=== PATIENT | male | born 1955 | race Caucasian/White ===

== ENCOUNTER → 2018-02-06 13:08 | Outpatient (CLI) | payer OTHER, SELFPAY | PROVIDERS: Family Provider Internal Medicine; PCP Internal Medicine | DX: C25.9 Malignant neoplasm of pancreas, unspecified (principal); C78.7 Secondary malignant neoplasm of liver and intrahepatic bile duct | CPT/HCPCS: 96372; 96523; A4216; J2505 ==

== ENCOUNTER → 2018-02-20 11:56 | Outpatient (CLI) | payer OTHER, SELFPAY ==
[2018-02-20 12:11] VITALS: BP 134/73; PULSE 102; RESP 16; TEMP 36.4; O2SAT 98
[2018-02-20 12:20] VITALS: BP 134/73; PULSE 102; RESP 16; TEMP 36.4; O2SAT 98
== END ==
PROVIDERS: Family Provider Internal Medicine; PCP Internal Medicine
DX: C25.9 Malignant neoplasm of pancreas, unspecified (principal); C78.7 Secondary malignant neoplasm of liver and intrahepatic bile duct
CPT/HCPCS: 96372; 96523; A4216; J2505

== ENCOUNTER → 2018-03-06 11:49 | Outpatient (CLI) | payer OTHER, SELFPAY | PROVIDERS: Family Provider Internal Medicine; PCP Internal Medicine | DX: C25.9 Malignant neoplasm of pancreas, unspecified (principal); C78.7 Secondary malignant neoplasm of liver and intrahepatic bile duct | CPT/HCPCS: 96372; 96523; J2505 ==

== ENCOUNTER → 2018-03-20 12:41 | Outpatient (CLI) | payer OTHER, SELFPAY ==
[2018-03-20 13:18] VITALS: BMI 56.3
--- OUTSIDE RECORDS SUMMARY | 2018-05-15 16:04 | XMS RPT_ITS | Summary of Care ---
:1955 Author Organization [facility] Address [address] [place] [address] Phone Care Team Providers Name Role Phone Viet Zuleta MD Primary Care Provider Reason for Visit Reason Comments Referral Encounter Details Date Type Department Care Team Description 03/18/2018 Continuity of Care Pastoral Care Ambulatory Julien Bhardwaj [address] [place] [address] Allergies No Known Allergiesas of this encounter Medications Prescription Sig. Disp. Refills Start Date End Date Status metformin 1000 MG Tab Take 1,000 mg by Active tablet mouth 2 times daily with meals. buPROPion 300 MG Take 300 mg by Active tablet XL mouth daily every morning. lisinopril 20 MG Tab Take 20 mg by Active mouth daily. Lutein 20 MG Tab Take 20 mg by Active mouth daily. Coenzyme Q10 (COQ10) Take 100 mg by Active 100 MG Cap mouth. omega-3 acid ethyl Take 1 g by mouth Active esters 1 g Cap capsule daily. aspirin 81 MG Chew Tab Chew 81 mg daily. Active chewable tablet ALPRAZolam 0.25 MG Tab Take 0.25 mg by Active tablet mouth At bedtime as needed for Sleep. insulin glargine 100 Inject 50 Units Active UNIT/ML vial under the skin At bedtime. insulin lispro 100 Inject under the Active UNIT/ML Solution skin daily. Sliding scale esomeprazole 40 MG Cap Take 1 capsule by 30 capsule 0 07/06/[address] capsule mouth every morning before breakfast. ondansetron 8 MG Tab Take 1 tablet by 40 tablet 6 07/18/2017 Active tabletIndications: mouth every 8 Pancreatic cancer hours as needed metastasized to liver for Nausea. apixaban (ELIQUIS) 5 Take 1 tablet by 60 tablet 5 10/01/2017 Active MG Tab mouth 2 times tabletIndications: daily. DVT bilat Pancreatic cancer legs 08/31/17 metastasized to liver potassium chloride Use one pill 4 tablet 0 01/07/2018 Active (KLOR-CON M20) 20 MEQ every other day Tab CR with Lasix for 8 tabletIndications: days Pancreatic cancer metastasized to liver, Bilateral lower leg cellulitis, Bilateral leg edema furOSEmide 40 MG Tab Use one pill 4 tablet 0 01/07/2018 Active tabletIndications: every other day Pancreatic cancer for 8 days metastasized to liver, Bilateral lower leg cellulitis, Bilateral leg edema magnesium oxide 400 MG Take 250 mg by Active TabIndications: mouth daily. Pancreatic cancer metastasized to liver cyanocobalamin 500 MCG Take 1,000 mcg by Active TabIndications: mouth daily. Pancreatic cancer metastasized to liver prochlorperazine 10 MG Take 1 tablet by 50 tablet 8 02/04/2018 Active Tab tabletIndications: mouth every 6 Pancreatic cancer hours as needed metastasized to liver for Nausea / Vomiting. dexamethasone 4 MG Tab Take 8 mg orally 30 tablet 1 02/04/2018 Active tabletIndications: daily for 3 days, Pancreatic cancer Starting day 2 of metastasized to liver chemotherapy. Take with food. IRINOTECAN HCL IV by Intravenous Active route. OXALIPLATIN IV by Intravenous Active route. FLUOROURACIL IV by Intravenous Active route. DISABILITY Disability 1 Each 0 03/06/2018 Active PLACARDIndications: placard end date Pancreatic cancer 04/21/20. metastasized to liver as of this encounter Active Problems Problem Noted Date Bilateral lower leg cellulitis 01/07/2018 Bilateral leg edema 01/07/2018 Pancreatic cancer metastasized to liver 07/18/2017 Lesion of liver 07/10/2017 Obesity: body mass index of 50 or higher 07/05/2017 Pancreatic mass 07/05/2017 Social History Tobacco Use Types Packs/Day Years Used Date Former Smoker 2 20 Smokeless Tobacco: Never Used Alcohol Use Drinks/Week oz/Week Comments No Sex Assigned at Date Recorded Not on file as of this encounter Functional Status Functional Status Response Date of Assessment Are you deaf or do you have serious difficulty hearing? No 07/05/2017 Are you blind or do you have serious difficulty seeing, No 07/05/2017 even when wearing glasses? Do you have serious difficulty walking or climbing stairs No 07/05/2017 (5 years or older)? Do you have difficulty dressing or bathing (5 yrs or No 07/05/2017 older)? Because of a physical, mental, or emotional condition, do No 07/05/2017 you have difficulty doing errands alone such as visiting a doctor's office or shopping (5 yrs or older)? Cognitive Status Response Date of Assessment Because of a physical, mental, or emotional condition, do No 07/05/2017 you have serious difficulty concentrating, remembering, or making decisions (5 yrs or older)? as of this encounter Plan of Treatment Upcoming Encounters Date Type Specialty Care Team Description 04/01/2018 Office Visit Hematology Tracie Waller MD [address] [address] 04/01/2018 Infusion Visit Chemotherapy Tracie Waller MD [address] [address] Health Maintenance Due Date Last Done Comments HEPATITIS C VIRUS SCREENING 1955 HIV SCREENING DISCUSSION 1969 TETANUS 1974 TDAP (ADULT) 10/14/1975 LIPID SCREENING 1996 COLON CANCER SCREENING DISCUSSION 2006 PROSTATE CANCER SCREENING 2006 DISCUSSION INFLUENZA VACCINE (#1) 2017 POTASSIUM 03/04/2019 03/04/2018, 03/04/2018, 02/18/2018, Additional history exists as of this encounter Implants Implanted Type Area Bronze Plater Device Expiration Model / Identifier Date Serial / Lot Port Mri Dual Powerport - [id number] Port Right: BARD PERIPHERAL 01/19/2019 [id number] / Implanted: Qty: 1 on 07/22/2017 by Brenton Gonzalez MD Chest / Wall [id number] as of this encounter
--- OUTSIDE RECORDS SUMMARY | 2018-05-15 16:04 | XMS RPT_ITS | Summary of Care ---
:1955 Author Organization [facility] Address [address] [place] [address] Phone Care Team Providers Name Role Phone Viet Zuleta MD Primary Care Provider Encounter Details Date Type Department Care Team Description 03/18/2018 Outside Orders NOTES/RESULTS Other, Other Allergies No Known Allergiesas of this encounter [...] Office Visit Hematology Tracie Waller MD [address] [address] 04/01/2018 Infusion Visit Chemotherapy Tracie Waller MD [address] [address] Scheduled Tests Name Priority Associated Diagnoses Order Schedule ORDERS (SCANNED) Ordered: 03/18/2018 Health Maintenance Due Date Last Done Comments HEPATITIS C VIRUS SCREENING 1955 HIV SCREENING DISCUSSION 1969 TETANUS 1974 TDAP (ADULT) 10/14/1975 LIPID SCREENING 1996 COLON CANCER SCREENING DISCUSSION 2006 PROSTATE CANCER SCREENING 2006 DISCUSSION INFLUENZA VACCINE (#1) 2017 POTASSIUM 03/18/2019 03/18/2018, 03/04/2018, 03/04/2018, Additional history exists as of this encounter Implants Implanted Type 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
--- OUTSIDE RECORDS SUMMARY | 2018-05-15 16:04 | XMS RPT_ITS | Summary of Care ---
:1955 Author Organization [facility] Address [address] [place] [address] Phone Care Team Providers Name Role Phone Viet Zuleta MD Primary Care Provider Encounter Details Date Type Department Care Team Description 03/04/2018 Outside Orders NOTES/RESULTS Other, Other Allergies No [...] route. FLUOROURACIL IV by Intravenous Active route. as of this encounter Active Problems Problem [...] Encounters Date Type Specialty Care Team Description 03/18/2018 Infusion Visit Chemotherapy Tracie Waller MD [address] [phone] 04/01/2018 Office Visit Hematology Tracie Waller MD [address] [address] 04/01/2018 Infusion Visit Chemotherapy Tracie Waller MD [address] [address] Scheduled Tests Name Priority Associated Diagnoses Order Schedule ORDERS (SCANNED) Ordered: 03/04/2018 Health Maintenance Due Date Last Done Comments HEPATITIS C VIRUS SCREENING 1955 HIV SCREENING DISCUSSION 1969 TETANUS 1974 TDAP (ADULT) 10/14/1975 LIPID SCREENING 1996 COLON CANCER SCREENING DISCUSSION 2006 PROSTATE CANCER SCREENING 2006 DISCUSSION INFLUENZA VACCINE (#1) 2017 POTASSIUM 03/04/2019 03/04/2018, 03/04/2018, 02/18/2018, Additional history exists as of this encounter Implants Implanted Type Area Crew Clerk Device Expiration Model / Identifier Date Serial / Lot Port Mri Dual Powerport - [id number] Port Right: BARD PERIPHERAL 01/19/2019 [id number] / Implanted: Qty: 1 on 07/22/2017 by Brenton Gonzalez MD Chest / Wall [id number] as of this encounter
--- OUTSIDE RECORDS SUMMARY | 2018-05-15 16:05 | XMS RPT_ITS ---
:1955 Author Organization [place] Support Name Relationship Address Phone [employer] Unavailable [address] + [place] [address] PACO, SYLWIA Unavailable [address] + [place] [address] [employer] Unavailable [address] + [place] [address] PACO, SYLWIA Unavailable [address] + [place] [address] NOT GIVEN Unavailable Unavailable Unavailable NOT GIVEN Unavailable Unavailable Unavailable PACO, SYLWIA Unavailable [address] [place] [address] MARIE RANDALL Unavailable Unavailable + NOT GIVEN Unavailable Unavailable Unavailable PACO, SYLWIA Unavailable [address] + [place] [address] PACO MERLE Unavailable Unavailable + MARIE CASE Unavailable Unavailable + PACO, SYLWIA Unavailable [address] + [place] [address] PACO, MERLE Unavailable Unavailable + MARIE CASE Unavailable Unavailable + [employer] Unavailable [address] + [place] [address] PACO, SYLWIA Unavailable [address] + [place] [address] PACO, SYLWIA Unavailable [address] + [place] [address] PACO MERLE Unavailable Unavailable + MARIE CASE Unavailable Unavailable + [employer] Unavailable [address] + [place] [address] PACO, SYLWIA Unavailable [address] + [place] [address] PACO, SYLWIA Unavailable [address] + [place] [address] PACO, MERLE Unavailable Unavailable + MANPREET MARIE Unavailable Unavailable + PACO, SYLWIA Unavailable [address] + [place] [address] PACO, MERLE Unavailable Unavailable + MANPREET MARIE Unavailable Unavailable + [employer] Unavailable [address] + [place] [address] PACO, SYLWIA Unavailable [address] + [place] [address] PACO, SYLWIA Unavailable [address] + [place] [address] PACO, MERLE Unavailable Unavailable + MANPREET AMRIE Unavailable Unavailable + [employer] Unavailable [address] + [place] [address] PACO, SYLWIA Unavailable Unavailable + PACO, SYLWIA Unavailable [address] + [place] [address] PACO, MERLE Unavailable Unavailable + MANPREET MARIE Unavailable Unavailable + PACO, SYLWIA Unavailable [address] + [place] [address] PACO, MERLE Unavailable Unavailable + MANPREET MARIE Unavailable Unavailable + PACO, SYLWIA Unavailable [address] + [place] [address] PACO, MERLE Unavailable Unavailable + STANER MARIE Unavailable Unavailable + PACO, SYLWIA Unavailable [address] + [place] [address] PACO, MERLE Unavailable Unavailable + STANER MARIE Unavailable Unavailable + PACO, SYLWIA Unavailable [address] + [place] [address] PACO, MERLE Unavailable Unavailable + STANER MARIE Unavailable Unavailable + PACO, SYLWIA Unavailable [address] + [place] [address] PACO, MERLE Unavailable Unavailable + STANAUBRIE MARIE Unavailable Unavailable + PACO, SYLWIA Unavailable [address] + [place] [address] PACO, MERLE Unavailable Unavailable + STANER MARIE Unavailable Unavailable + PACO, SYLWIA Unavailable [address] + [place] [address] PACO, MERLE Unavailable Unavailable + STANER MARIE Unavailable Unavailable + PACO, SYLWIA Unavailable [address] + [place] [address] PACO, MERLE Unavailable Unavailable + STANER MARIE Unavailable Unavailable + PACO, SYLWIA Unavailable [address] + [place] [address] PACO, MERLE Unavailable Unavailable + STANER, MARIE Unavailable Unavailable + PACO, SYLWIA Unavailable [address] + [place] [address] PACO, MERLE Unavailable Unavailable + STANER, MARIE Unavailable Unavailable + PACO, SYLWIA Unavailable [address] + [place] [address] PACO, MERLE Unavailable Unavailable + STANAUBRIE MARIE Unavailable Unavailable + PACO, SYLWIA Unavailable [address] + [place] [address] PACO, MERLE Unavailable Unavailable + STANAUBRIE MARIE Unavailable Unavailable + PACO, SYLWIA Unavailable [address] + [place] [address] PACO, MERLE Unavailable Unavailable + STANAUBRIE MARIE Unavailable Unavailable + PACO, SYLWIA Unavailable [address] + [place] [address] PACO, MERLE Unavailable Unavailable + MANPREET MARIE Unavailable Unavailable + PACO, SYLWIA Unavailable [address] + [place] [address] PACO, MERLE Unavailable Unavailable + STANAUBRIE MARIE Unavailable Unavailable + PACO, SYLWIA Unavailable [address] + [place] [address] PACO, MERLE Unavailable Unavailable + STANAUBRIE MARIE Unavailable Unavailable + PACO, SYLWIA Unavailable [address] + [place] [address] PACO, MERLE Unavailable Unavailable + STANAUBRIE MARIE Unavailable Unavailable + PACO, SYLWIA Unavailable [address] + [place] [address] PACO, MERLE Unavailable Unavailable + STANER MARIE Unavailable Unavailable + PACO, SYLWIA Unavailable [address] + [place] [address] PACO, MERLE Unavailable Unavailable + JOHANA CASESH Unavailable Unavailable + PACO, SYLWIA Unavailable [address] + [place] [address] PACO, MERLE Unavailable Unavailable + MANPREET MARIE Unavailable Unavailable + PACO, SYLWIA Unavailable [address] + [place] [address] PACO, MERLE Unavailable Unavailable + MARIE CASE Unavailable Unavailable + NOT GIVEN Unavailable Unavailable Unavailable PACO, SYLWIA Unavailable [address] [place] [address] STARJOHANA GERBERSH Unavailable Unavailable + NOT GIVEN Unavailable Unavailable Unavailable PACO, SYLWIA Unavailable [address] [place] [address] STARZABRINA MARIE Unavailable Unavailable + PACO, SYLWIA Unavailable [address] + [place] [address] PACO, MERLE Unavailable Unavailable + JOHANA CASESH Unavailable Unavailable + PACO, SYLWIA Unavailable [address] + [place] [address] PACO, MERLE Unavailable Unavailable + MANPREET MARIE Unavailable Unavailable + PACO, SYLWIA Unavailable [address] + [place] [address] PACO, MERLE Unavailable Unavailable + MANPREET MARIE Unavailable Unavailable + PACO, SYLWIA Unavailable [address] + [place] [address] PACO, MERLE Unavailable Unavailable + MARIE CASE Unavailable Unavailable + PACO, SYLWIA Unavailable [address] + [place] [address] PACO, MERLE Unavailable Unavailable + MARIE CASE Unavailable Unavailable + PACO, SYLWIA Unavailable [address] + [place] [address] PACO, MERLE Unavailable Unavailable + MARIE CASE Unavailable Unavailable + PACO, SYLWIA Unavailable [address] + [place] [address] PACO, MERLE Unavailable Unavailable + MARIE CASE Unavailable Unavailable + PACO, SYLWIA Unavailable [address] + [place] [address] PACO, MERLE Unavailable Unavailable + MARIE CASE Unavailable Unavailable + PACO, SYLWIA Unavailable [address] + [place] [address] PACO, MERLE Unavailable Unavailable + MARIE CASE Unavailable Unavailable + NOT GIVEN Unavailable Unavailable Unavailable PACO, SYLWIA Unavailable [address] [place] [address] TONIAJOHANASH Unavailable Unavailable + Care Team Providers Name Role Phone CHRISTIAN WALLER Attending Unavailable AL-CHRISTIAN LO Referring Unavailable LATOUF, BUTROS Primary Care Unavailable REZA-CHRISTIAN LO Attending Unavailable REZA-CHRISTIAN LO Referring Unavailable LATOUF, BUTROS Primary Care Unavailable REZA-CHRISTIAN LO Attending Unavailable ELVIRA PACHECO Referring Unavailable LATOUF, BUTROS Primary Care Unavailable REZA-CHRISTIAN LO Attending Unavailable REZA-CHRISTIAN LO Referring Unavailable LATOUF, BUTROS Primary Care Unavailable REZA-CHRISTIAN LO Attending Unavailable REZA-MARRAWI, MHD Referring Unavailable LATOUF, BUTROS Primary Care Unavailable OLD, EDNA O Attending Unavailable AL-MARRAWI, MHD Referring Unavailable LATOUF, BUTROS Primary Care Unavailable OLD, EDNA O Attending Unavailable OLD, EDNA O Referring Unavailable LATOUF, BUTROS Primary Care Unavailable AL-MARRAWI, MHD Attending Unavailable AL-MARRAWI, MHD Referring Unavailable LATOUF, BUTROS Primary Care Unavailable AL-MARRAWI, MHD Attending Unavailable AL-MARRAWI, MHD Referring Unavailable LATOUF, BUTROS Primary Care Unavailable AL-MARRAWI, MHD Attending Unavailable AL-MARRAWI, MHD Referring Unavailable LATOUF, BUTROS Primary Care Unavailable AL-MARRAWI, MHD Attending Unavailable LATOUF, BUTROS Referring Unavailable LATOUF, BUTROS Primary Care Unavailable AL-MARRAWI, MHD Attending Unavailable AL-MARRAWI, MHD Referring Unavailable LATOUF, BUTROS Primary Care Unavailable AL-MARRAWI, MHD Attending Unavailable AL-MARRAWI, MHD Referring Unavailable LATOUF, BUTROS Primary Care Unavailable AL-MARRAWI, MHD Attending Unavailable AL-MARRAWI, MHD Referring Unavailable LATOUF, BUTROS Primary Care Unavailable AL-MARRAWI, MHD Attending Unavailable LATOUF, BUTROS Referring Unavailable LATOUF, BUTROS Primary Care Unavailable AL-MARRAWI, MHD Attending Unavailable AL-MARRAWI, MHD Referring Unavailable LATOUF, BUTROS Primary Care Unavailable AL-MARRAWI, MHD Attending Unavailable AL-MARRAWI, MHD Referring Unavailable LATOUF, BUTROS Primary Care Unavailable AL-MARRAWI, MHD Attending Unavailable AL-MARRAWI, MHD Referring Unavailable LATOUF, BUTROS Primary Care Unavailable AL-MARRAWI, MHD Attending Unavailable AL-MARRAWI, MHD Referring Unavailable LATOUF, BUTROS Primary Care Unavailable AL-MARRAWI, MHD Attending Unavailable LATOUF, BUTROS Referring Unavailable LATOUF, BUTROS Primary Care Unavailable AL-MARRAWI, MHD Attending Unavailable AL-MARRAWI, MHD Referring Unavailable LATOUF, BUTROS Primary Care Unavailable AL-MARRAWI, MHD Attending Unavailable AL-MARRAWI, MHD Referring Unavailable LATOUF, BUTROS Primary Care Unavailable AL-MARRAWI, MHD Attending Unavailable LATOUF, BUTROS Referring Unavailable LATOUF, BUTROS Primary Care Unavailable AL-MARRAWI, MHD Attending Unavailable AL-MARRAWI, MHD Referring Unavailable LATOUF, BUTROS Primary Care Unavailable AL-MARRAWI, MHD Attending Unavailable LATOUF, BUTROS Referring Unavailable LATOUF, BUTROS Primary Care Unavailable AL-MARRAWI, MHD Attending Unavailable AL-MARRAWI, MHD Referring Unavailable LATOUF, BUTROS Primary Care Unavailable AL-MARRAWI, MHD Attending Unavailable AL-MARRAWI, MHD Referring Unavailable LATOUF, BUTROS Primary Care Unavailable AL-MARRAWI, MHD Attending Unavailable AL-MARRAWI, MHD Referring Unavailable LATOUF, BUTROS Primary Care Unavailable AL-MARRAWI, MHD Attending Unavailable SELF, SELF Referring Unavailable LATOUF, BUTROS Primary Care Unavailable AL-MARRAWI, MHD Attending Unavailable SELF, SELF Referring Unavailable LATOUF, BUTROS Primary Care Unavailable AL-MARRAWI, MHD Attending Unavailable AL-MARRAWI, MHD Referring Unavailable LATOUF, BUTROS Primary Care Unavailable AL-MARRAWI, MHD Attending Unavailable AL-MARRAWI, MHD Referring Unavailable LATOUF, BUTROS Primary Care Unavailable AL-MARRAWI, MHD Attending Unavailable SELF, SELF Referring Unavailable LATOUF, BUTROS Primary Care Unavailable AL-MARRAWI, MHD Attending Unavailable AL-MARRAWI, MHD Referring Unavailable LATOUF, BUTROS Primary Care Unavailable AL TAANI, BRENTON Admitting Unavailable AL TAANI, BRENTON Attending Unavailable LATOUF, BUTROS Primary Care Unavailable CODI JUAREZ Attending Unavailable AL-MARRAWI, MHD Referring Unavailable LATOUF, BUTROS Primary Care Unavailable ELVIRA PACHECO Admitting Unavailable ELVIRA PACHECO Attending Unavailable LATOUF, BUTROS Referring Unavailable MARIANA GERMAIN PA-C Admitting Unavailable MARIANA GERMAIN PA-C Attending Unavailable MARIANA GERMAIN PA-C Primary Care Unavailable EDILMA WASHINGTON MD Admitting Unavailable EDILMA WASHINGTON MD Attending Unavailable SHELTON, DAHLIA TRIMBLE Referring Unavailable EDILMA WASHINGTON MD Primary Care Unavailable DAHLIA ZULETA MD Consulting Unavailable PROVIDER, UNKNOWN Consulting Unavailable PROVIDER, UNKNOWN Consulting Unavailable PROVIDER, UNKNOWN Consulting Unavailable MARIANA GERMAIN PA-C Admitting Unavailable MARIANA GERMAIN PA-C Attending Unavailable MARIANA GERMAIN PA-C Primary Care Unavailable SHELTON, DAHLIA TRIMBLE Consulting Unavailable PROVIDER, UNKNOWN Consulting Unavailable PROVIDER, UNKNOWN Consulting Unavailable PROVIDER, UNKNOWN Consulting Unavailable ANN MARIE, DR DEEDEE Ibarra Admitting Unavailable ANN MARIE, DR DEEDEE Ibarra Attending Unavailable ANN MARIE, DR DEEDEE Ibarra Primary Care Unavailable DAHLIA ZULETA MD Consulting Unavailable LATNANCY, DAHLIA TRIMBLE Referring Unavailable PROVIDER, UNKNOWN Consulting Unavailable PROVIDER, UNKNOWN Consulting Unavailable PROVIDER, UNKNOWN Consulting Unavailable LATOUJasmyn, DAHLIA TRIMBLE Admitting Unavailable LATOUF, DAHLIA TRIMBLE Attending Unavailable LATOUF, BUTJANUSZ TRIMBLE Primary Care Unavailable LATOUF, DAHLIA TRIMBLE Consulting Unavailable PROVIDER, UNKNOWN Consulting Unavailable PROVIDER, UNKNOWN Consulting Unavailable PROVIDER, UNKNOWN Consulting Unavailable LATOUF, DAHLIA TRIMBLE Admitting Unavailable LATOUF, DAHLIA TRIMBLE Attending Unavailable LATOUF, BUTJANUSZ TRIMBLE Primary Care Unavailable LATOUF, DAHLIA TRIMBLE Consulting Unavailable PROVIDER, UNKNOWN Consulting Unavailable PROVIDER, UNKNOWN Consulting Unavailable PROVIDER, UNKNOWN Consulting Unavailable LATOUF, BUTROS Primary Care Unavailable Al-Chu, DIDIERD Karen Attending Unavailable Al-Chu, MHD Yaser Referring Unavailable Merritt Da Silva Attending Unavailable LATOUF, BUTROS Primary Care Unavailable LATOUF, BUTROS Primary Care Unavailable AURORA RIGGS Attending Unavailable AURORA RIGGS Referring Unavailable LATOUF, BUTROS Primary Care Unavailable AURORA RIGGS Attending Unavailable AURORA RIGGS Referring Unavailable LATOUF, BUTROS Primary Care Unavailable Al-Chu, DIDIERD Yagarcia Attending Unavailable Al-Margiuseppe, MHD Yaser Referring Unavailable LATOUF, BUTROS Primary Care Unavailable AURORA RIGGS Attending Unavailable AURORA RIGGS Referring Unavailable PROBLEMS PROBLEMS DATE TYPE CONDITION / CODE ATTENDING STATUS SOURCE 04/02/2018 Principle Type 2 diabetes LATOUF, BUTROS Active [facility] Diagnosis mellitus without [facility] complications / Hospital E119(ICD-10) Repository 04/02/2018 Secondary Essential (primary) LATOUF, BUTROS Active [facility] hypertension / [facility] I10(ICD-10) Hospital Repository 04/02/2018 Secondary Lipoprotein LATOUF, 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 / [facility] E786(ICD-10) Hospital Repository 04/01/2018 Admitting 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, University unspecified / [facility] C25.9(ICD-10) Center Repository 04/01/2018 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 / Center C78.7(ICD-10) Repository 04/02/2018 Unknown 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 / Repository C25.9(ICD-10) 01/07/2018 Admitting Localized edema / OLD, EDNA Osborn Active [facility] diagnosis R60.0(ICD-10) [facility] Repository 01/07/2018 Admitting Cellulitis of left OLD, EDNA Osborn Active [facility] diagnosis lower limb / University L03.116(ICD-10) [facility] Repository 01/07/2018 Admitting Cellulitis of right OLD, EDNA Osborn Active [facility] diagnosis lower limb / University L03.115(ICD-10) [facility] Repository 12/10/2017 Admitting Follow-up / 145() REZACLEMENTEDIDIER AMAYAJosé Miguel Active [facility] diagnosis [facility] Repository 07/04/2017 Admitting Disease of ELVIRA PACHECO Active [facility] diagnosis pancreas, M University unspecified / [facility] K86.9(ICD-10) Center Repository PROCEDURES PROCEDURES No Procedure Records FoundRESULTS RESULTS CBC WITH DIFF EAST Collected: 04/01/2018 Status: F Source: [facility] 8:28 AM [facility] REPOSITORY TYPE CODE TESTS RESULT OUT OF REFERENCE UNITS RANGE LAB WBC 3.73-10.10 K/uL WBC Count 8.90 LAB RBC 4.38-5.83 M/uL RBC Count 3.35 Low LAB HGB 13.4-16.8 g/dL Hemoglobin 9.8 Low LAB HCT 39.6-48.8 % Hematocrit 32.0 Low LAB MCV 79.0-94.5 fL Mean Cell 95.5 High Volume LAB MCH 26.1-33.3 pg Mean Cell 29.3 Hgb LAB MCHC 31.9-36.5 g/dL Mean Cell 30.6 Low alert Hgb Conc LAB RDW 10.9-14.3 % RBC 18.8 High Distribution LAB PLT 146-337 K/uL Platelet 142 Low Count LAB MPV 8.7-12.3 fL Mean 11.3 Platelet Volume LAB NRBC 0.0-0.2 /100 WBC NUCLEATED 0.2 RBC LAB DTYPE Electronic DIFFERENTIAL TYPE Differential LAB IGRE % IMMATURE 0.6 GRANS % LAB SEGS % NEUTROPHIL 77.8 SEGMENTED LAB LYM % LYMPHOCYTE 12.2 % LAB MON % MONOCYTE % 7.6 LAB EOS % *EOSINOPHIL 1.0 % LAB BASO % BASOPHIL % 0.8 LAB IGABS 0.00-0.07 K/uL IMMATURE 0.05 GRANS ABSOLUTE LAB SBANS 1.57-6.19 K/uL SEGS + 6.92 High Bands,Absolute LAB ALYM 0.83-3.57 K/uL Abs Lymph 1.09 LAB AMONO 0.24-0.93 K/uL Abs Christian 0.68 LAB AEOS 0.00-0.48 K/uL Abs Eos 0.09 LAB ABASO 0.00-0.09 K/uL Abs Baso 0.07 Performed By: #### CBCDFStacey, CHM6E, GLUE, LIVPE #### [place] [address] #### CEA, CA199 #### [facility] [address] [place] [address] [place] [address] CHEM 6 - UHE Collected: 04/01/2018 Status: F Source: [facility] 8:28 AM [facility] REPOSITORY TYPE CODE TESTS RESULT OUT OF REFERENCE UNITS RANGE LAB BUN 7-22 mg/dL BUN 16 LAB NA 133-143 mmol/L Low Sodium 132 LAB K 3.5-5.0 mmol/L Potassium 4.6 LAB CL 98-108 mmol/L Chloride 98 LAB CO2 22-30 mmol/L Carbon Dioxide 29 LAB CREA 0.70-1.30 mg/dL Creatinine 0.93 LAB GAP 7-17 mmol/L Anion Gap 10 LAB BC BUN/CREA Ratio 17 LAB GFR >60 mL/min/1.73 sqM Est GFR,non >60 [place] LAB GFRA >60 mL/min/1.73 sqM Est GFR, >60 Performed By: #### CBCDFE, CHM6E, GLUE, LIVPE #### [place] [address] #### CEA, CA199 #### [facility] [id number] [place] [address] [place] [address] GLUCOSE - UHE Collected: 04/01/2018 Status: F Source: [facility] 8:28 AM [facility] REPOSITORY TYPE CODE TESTS RESULT OUT OF REFERENCE UNITS RANGE LAB GLUC 70-99 mg/dL High Glucose 306 Performed By: #### CBCDFE, CHM6E, GLUE, LIVPE #### [place] [address] #### CEA, CA199 #### [facility] [address] [place] [address] LIVER PROFILE - UHE Collected: 04/01/2018 Status: F Source: [facility] 8:28 AM [facility] REPOSITORY TYPE CODE TESTS RESULT OUT OF REFERENCE UNITS RANGE LAB ALT 10-52 U/L ALT 17 LAB AST 14-40 U/L AST 20 LAB ALB 3.5-5.0 g/dL Albumin 3.6 LAB ALP 32-126 U/L Alkaline Phosphatase 61 LAB BILD <0.3 mg/dL Bilirubin Direct 0.1 LAB BILT <1.5 mg/dL Bilirubin Total 0.4 LAB TP 6.4-8.3 g/dL Low Total Protein 6.3 Performed By: #### CBCDFE, CHM6E, GLUE, LIVPE #### [place] [address] #### CEA, CA199 #### [facility] [address] [address] CEA Collected: 04/01/2018 Status: F Source: [facility] 8:28 AM [facility] REPOSITORY TYPE CODE TESTS RESULT OUT OF RANGE REFERENCE UNITS LAB CEA 0-5.0 ng/mL High CEA 93.5 Performed By: #### CBCDFE, CHM6E, GLUE, LIVPE #### [address] [address] #### CEA, CA199 #### [facility] [address] [place] [address] [facility] [address] [place], [place] [address] CA 19-9 Collected: 04/01/2018 Status: F Source: [facility] 8:28 AM [facility] REPOSITORY TYPE CODE TESTS RESULT OUT OF RANGE REFERENCE UNITS LAB CA199 0-37.00 U/mL High CA 19-9 204.47 Performed By: #### CBCDFE, CHM6E, GLUE, LIVPE #### [facility] [address] [place], [place] [address] #### CEA, CA199 #### [facility] [address] [place] [address] [facility] [address] [place], [place] [address] CBC WITH DIFF EAST Collected: 03/18/2018 Status: F Source: [facility] 9:37 AM [facility] REPOSITORY TYPE CODE TESTS RESULT OUT OF REFERENCE UNITS RANGE LAB WBC 3.73-10.10 K/uL WBC Count 9.97 LAB RBC 4.38-5.83 M/uL RBC Count 3.35 Low LAB HGB 13.4-16.8 g/dL Hemoglobin 9.6 Low LAB HCT 39.6-48.8 % Hematocrit 31.0 Low LAB MCV 79.0-94.5 fL Mean Cell 92.5 Volume LAB MCH 26.1-33.3 pg Mean Cell 28.7 Hgb LAB MCHC 31.9-36.5 g/dL Mean Cell 31.0 Low Hgb Conc LAB RDW 10.9-14.3 % RBC 18.6 High Distribution LAB PLT 146-337 K/uL Platelet 139 Low Count LAB MPV 8.7-12.3 fL Mean 11.4 Platelet Volume LAB NRBC 0.0-0.2 /100 WBC NUCLEATED 0.0 RBC LAB DTYPE Electronic DIFFERENTIAL TYPE Differential LAB IGRE % IMMATURE 0.8 GRANS % LAB SEGS % NEUTROPHIL 78.8 SEGMENTED LAB LYM % LYMPHOCYTE 12.7 % LAB MON % MONOCYTE % 5.7 LAB EOS % *EOSINOPHIL 1.4 % LAB BASO % BASOPHIL % 0.6 LAB IGABS 0.00-0.07 K/uL IMMATURE 0.08 High GRANS ABSOLUTE LAB SBANS 1.57-6.19 K/uL SEGS + 7.85 High Bands,Absolute LAB ALYM 0.83-3.57 K/uL Abs Lymph 1.27 LAB AMONO 0.24-0.93 K/uL Abs Christian 0.57 LAB AEOS 0.00-0.48 K/uL Abs Eos 0.14 LAB ABASO 0.00-0.09 K/uL Abs Baso 0.06 Performed By: #### CBCDFE #### [place] [address] CBC WITH DIFF EAST Collected: 03/04/2018 Status: F Source: [facility] 8:30 AM [facility] REPOSITORY TYPE CODE TESTS RESULT OUT OF REFERENCE UNITS RANGE LAB WBC 3.73-10.10 K/uL WBC Count 11.29 High LAB RBC 4.38-5.83 M/uL RBC Count 3.37 Low LAB HGB 13.4-16.8 g/dL Hemoglobin 9.6 Low LAB HCT 39.6-48.8 % Hematocrit 31.1 Low LAB MCV 79.0-94.5 fL Mean Cell 92.3 Volume LAB MCH 26.1-33.3 pg Mean Cell 28.5 Hgb LAB MCHC 31.9-36.5 g/dL Mean Cell 30.9 Low alert Hgb Conc LAB RDW 10.9-14.3 % RBC 19.2 High Distribution LAB PLT 146-337 K/uL Platelet 142 Low Count LAB MPV 8.7-12.3 fL Mean NOT Platelet Volume MEASURED LAB NRBC 0.0-0.2 /100 WBC NUCLEATED 0.2 RBC LAB DTYPE Electronic DIFFERENTIAL TYPE Differential LAB IGRE % IMMATURE 0.8 GRANS % LAB SEGS % NEUTROPHIL 79.7 SEGMENTED LAB LYM % LYMPHOCYTE 11.9 % LAB MON % MONOCYTE % 6.5 LAB EOS % EOSINOPHIL 0.5 % LAB BASO % BASOPHIL % 0.6 LAB IGABS 0.00-0.07 K/uL IMMATURE 0.09 High GRANS ABSOLUTE LAB SBANS 1.57-6.19 K/uL SEGS + 9.00 High Bands,Absolute LAB ALYM 0.83-3.57 K/uL Abs Lymph 1.34 LAB AMONO 0.24-0.93 K/uL Abs Christian 0.73 LAB AEOS 0.00-0.48 K/uL Abs Eos 0.06 LAB ABASO 0.00-0.09 K/uL Abs Baso 0.07 Performed By: #### CBCDFE, CHM6E, GLUE, LIVPE #### [address] [address] #### CA199, CEA #### [facility] [address] [address] [facility] [address] [place] [address] CHEM 6 - UHE Collected: 03/04/2018 Status: F Source: [facility] 8:30 AM [facility] REPOSITORY TYPE CODE TESTS RESULT OUT OF REFERENCE UNITS RANGE LAB BUN 7-22 mg/dL BUN 16 LAB NA 133-143 mmol/L Sodium 135 LAB K 3.5-5.0 mmol/L Potassium 4.7 LAB CL 98-108 mmol/L Chloride 99 LAB CO2 22-30 mmol/L Carbon Dioxide 30 LAB CREA 0.70-1.30 mg/dL Creatinine 1.05 LAB GAP 7-17 mmol/L Anion Gap 11 LAB BC BUN/CREA Ratio 15 LAB GFR >60 mL/min/1.73 sqM Est GFR,non >60 [place] LAB GFRA >60 mL/min/1.73 sqM Est GFR, >60 Performed By: #### CBCDFE, CHM6E, GLUE, LIVPE #### [address] [address] #### CA199, CEA #### [facility] [id number] [place] [address] [address] GLUCOSE - UHE Collected: 03/04/2018 Status: F Source: [facility] 8:30 AM [facility] REPOSITORY TYPE CODE TESTS RESULT OUT OF REFERENCE UNITS RANGE LAB GLUC 70-99 mg/dL High Glucose 249 Performed By: #### CBCDFE, CHM6E, GLUE, LIVPE #### [address] [address] #### CA199, CEA #### [facility] [address] [address] [facility] [address] [place] [address] LIVER PROFILE - UHE Collected: 03/04/2018 Status: F Source: [facility] 8:30 AM [facility] REPOSITORY TYPE CODE TESTS RESULT OUT OF REFERENCE UNITS RANGE LAB ALT 10-52 U/L ALT 16 LAB AST 14-40 U/L AST 17 LAB ALB 3.5-5.0 g/dL Albumin 3.5 LAB ALP 32-126 U/L Alkaline Phosphatase 59 LAB BILD <0.3 mg/dL Bilirubin Direct 0.1 LAB BILT <1.5 mg/dL Bilirubin Total 0.3 LAB TP 6.4-8.3 g/dL Low Total Protein 6.2 Performed By: #### CBCDFE, CHM6E, GLUE, LIVPE #### [address] [address] #### CA199, CEA #### [place] [address] CA 19-9 Collected: 03/04/2018 Status: F Source: [facility] 8:30 AM [facility] REPOSITORY TYPE CODE TESTS RESULT OUT OF RANGE REFERENCE UNITS LAB CA199 0-37.00 U/mL High CA 19-9 188.32 Performed By: #### CBCDFE, CHM6E, GLUE, LIVPE #### [address] [address] #### CA199, CEA #### [address] [address] CEA Collected: 03/04/2018 Status: F Source: [facility] 8:30 AM [facility] REPOSITORY TYPE CODE TESTS RESULT OUT OF RANGE REFERENCE UNITS LAB CEA 0-5.0 ng/mL High CEA 129.4 Performed By: #### CBCDFE, CHM6E, GLUE, LIVPE #### [address] [address] #### CA199, CEA #### [id number] [place] [address] CBC WITH DIFF EAST Collected: 02/18/2018 Status: F Source: [facility] 8:40 AM [facility] REPOSITORY TYPE CODE TESTS RESULT OUT OF REFERENCE UNITS RANGE LAB WBC 4.23-9.07 K/uL WBC Count 10.68 High LAB RBC 4.63-6.08 M/uL RBC Count 3.63 Low LAB HGB 13.7-17.5 g/dL Hemoglobin 10.3 Low LAB HCT 40.1-51.0 % Hematocrit 33.2 Low LAB MCV 79.0-92.2 fL Mean Cell 91.5 Volume LAB MCH 25.7-32.2 pg Mean Cell 28.4 Hgb LAB MCHC 32.3-36.5 g/dL Mean Cell 31.0 Low Hgb Conc LAB RDW 11.6-14.4 % RBC 18.4 High Distribution LAB PLT 163-337 K/uL Platelet 100 Low Count LAB MPV 9.4-12.4 fL Mean NOT Platelet Volume MEASURED LAB NRBC 0.0-0.2 /100 WBC NUCLEATED 0.4 High RBC LAB DTYPE Electronic DIFFERENTIAL TYPE Differential LAB IGRE % IMMATURE 0.7 GRANS % LAB SEGS % NEUTROPHIL 77.9 SEGMENTED LAB LYM % LYMPHOCYTE 12.8 % LAB MON % MONOCYTE % 5.7 LAB EOS % EOSINOPHIL 2.1 % LAB BASO % BASOPHIL % 0.8 LAB IGABS <0.04 K/uL IMMATURE 0.08 High GRANS ABSOLUTE LAB SBANS 1.78-5.38 K/uL SEGS + 8.31 High Bands,Absolute LAB ALYM 1.32-3.57 K/uL Abs Lymph 1.37 LAB AMONO 0.30-0.82 K/uL Abs Christian 0.61 LAB AEOS <0.55 K/uL Abs Eos 0.22 LAB ABASO <0.09 K/uL Abs Baso 0.09 High Performed By: #### CBCDFE #### [address] [address] CHEM 6 - E Collected: 02/04/2018 Status: F Source: [facility] 8:30 AM [facility] REPOSITORY TYPE CODE TESTS RESULT OUT OF REFERENCE UNITS RANGE LAB BUN 7-22 mg/dL BUN 18 LAB NA 133-143 mmol/L Sodium 137 LAB K 3.5-5.0 mmol/L Potassium 4.8 LAB CL 98-108 mmol/L Chloride 100 LAB CO2 22-30 mmol/L Carbon High Dioxide 32 LAB CREA 0.70-1.30 mg/dL Creatinine 1.01 LAB GAP 7-17 mmol/L Anion Gap 10 LAB BC BUN/CREA Ratio 18 LAB GFR >60 mL/min/1.73 sqM Est GFR,non >60 [place] LAB GFRA >60 mL/min/1.73 sqM Est GFR, >60 Performed By: #### JESUSM6Stacey, SHAWNA, CBCDFE #### [address] [address] #### CEA, CA199 #### [facility] [address] [place] [address] LIVER PROFILE - [facility] Collected: 02/04/2018 Status: F Source: [facility] 8:30 AM [facility] REPOSITORY TYPE CODE TESTS RESULT OUT OF REFERENCE UNITS RANGE LAB ALT 10-52 U/L ALT 14 LAB AST 14-40 U/L AST 20 LAB ALB 3.5-5.0 g/dL Albumin 3.6 LAB ALP 32-126 U/L Low Alkaline Phosphatase 31 LAB BILD <0.3 mg/dL Bilirubin Direct 0.1 LAB BILT <1.5 mg/dL Bilirubin Total 0.4 LAB TP 6.4-8.3 g/dL Total Protein 6.6 Performed By: #### JESUSM6Stacey, SHAWNA, CBCDFE #### [address] [address] #### CEA, CA199 #### [facility] [address] [place] [address] CBC WITH DIFF EAST Collected: 02/04/2018 Status: F Source: [facility] 8:30 AM [facility] REPOSITORY TYPE CODE TESTS RESULT OUT OF REFERENCE UNITS RANGE LAB WBC 4.23-9.07 K/uL WBC Count 4.75 LAB RBC 4.63-6.08 M/uL RBC Count 3.52 Low LAB HGB 13.7-17.5 g/dL Hemoglobin 9.9 Low LAB HCT 40.1-51.0 % Hematocrit 32.4 Low LAB MCV 79.0-92.2 fL Mean Cell 92.0 Volume LAB MCH 25.7-32.2 pg Mean Cell Hgb 28.1 LAB MCHC 32.3-36.5 g/dL Mean Cell Hgb 30.6 Low alert Conc LAB RDW 11.6-14.4 % RBC 17.9 High Distribution LAB PLT 163-337 K/uL Platelet Count 158 Low LAB MPV 9.4-12.4 fL Mean Platelet 11.1 Volume LAB NRBC 0.0-0.2 /100 WBC NUCLEATED RBC 0.0 LAB DTYPE DIFFERENTIAL Manual TYPE Differential LAB SEGS % NEUTROPHIL 56.0 SEGMENTED LAB LYM % LYMPHOCYTE % 24.0 LAB MON % MONOCYTE % 14.0 LAB EOS % EOSINOPHIL % 6.0 LAB BASO % BASOPHIL % 0.0 LAB BAND % BAND 0.0 NEUTROPHIL % LAB SBANS 1.78-5.38 K/uL SEGS + 2.66 Bands,Absolute LAB ALYM 1.32-3.57 K/uL Abs Lymph 1.14 Low LAB AMONO 0.30-0.82 K/uL Abs Christian 0.67 LAB AEOS <0.55 K/uL Abs Eos 0.29 LAB ABASO <0.09 K/uL Abs Baso 0.00 LAB POLYCH POLYCHROMASIA 1+ LAB PLTEST PLATELET ESTIMATE Automated platelet count confirmed by manual slide review. LAB RMORPH Red Cell RBC Morphology indices confirmed by manual smear review. Performed By: #### CHM6E, LIVPE, CBCDFE #### [place] [address] #### CEA, CA199 #### [place] [address] CEA Collected: 02/04/2018 Status: F Source: [facility] 8:30 AM [facility] REPOSITORY TYPE CODE TESTS RESULT OUT OF RANGE REFERENCE UNITS LAB CEA 0-5.0 ng/mL High CEA 74.0 Performed By: #### CHM6E, LIVPE, CBCDFE #### [place] [address] #### CEA, CA199 #### [place] [address] CA 19-9 Collected: 02/04/2018 Status: F Source: [facility] 8:30 AM [facility] REPOSITORY TYPE CODE TESTS RESULT OUT OF RANGE REFERENCE UNITS LAB CA199 0-37.00 U/mL High CA 19-9 87.81 Performed By: #### CHM6E, LIVPE, CBCDFE #### [address] [address] #### CEA, CA199 #### [facility] [address] [place] [address] [facility] [address] [place] [address] [place] CHEST WITH Observed: 01/27/2018 Status: F Source: [facility] 3:40 PM [facility] REPOSITORY EXAM: CT CHEST WITH CONTRAST, 01/27/2018 11:46 AM COMPARISON: October 21, 2017 CLINICAL INDICATIONS: Metastatic pancreatic cancer to liver, lungs and lower mediastinal and upper abdominal lymph nodes; RELEVANT CLINICAL HISTORY: C25.9:Pancreatic cancer metastasized to liver C78.7:Pancreatic cancer metastasized to liver L03.116:Bilateral lower leg cellulitis L03.115:Bilateral lower leg cellulitis R60.0:Bilateral leg edema TECHNIQUE: Following the administration of intravenous contrast, axial CT images were reconstructed from the volumetric data set, from the thoracic inlet through the adrenal glands. Coronal MIP images were also reconstructed. CONTRAST: iohexol (OMNIPAQUE) 300 MG/ML vial 50 mL; Route of Administration: Oral; Dose: 50 mL. iohexol (OMNIPAQUE) 350 MG/ML injection 1-171 mL; Route of Administration: Intravenous; Dose: 140 mL. FINDINGS: Lungs and Pleura: Stable faint groundglass subpleural nodule in the right lower lobe at the site of a 0.9 cm subpleural nodule noted on the CT from June 2017. Stable punctate nodule in the left lower lobe at the site of a previously noted 0.5 cm nodule in June 2017, image 77. No new or enlarging pulmonary nodule. Mild dependent atelectasis. No pleural fluid. Tracheobronchial tree: No abnormality. Mediastinum/Celia: Mediastinal and hilar lymph nodes as detailed below: Paraesophageal, 0.8 x 1.4 cm, unchanged, image 78 Right juxtacardiac, 0.8 x 1.3 cm, previously 0.8 x 1.2 cm, image 71 Paraesophageal, 0.6 x 0.6 cm, previously 0.6 x 0.7 cm, image 55. Axilla and Supraclavicular Region: No axillary or supraclavicular adenopathy. Cardiovascular: Heart is normal in size. No pericardial effusion. Mild aortic valve leaflet calcifications. Few scattered atherosclerotic calcifications in the coronary arteries, the aorta and branch vessels. Normal pulmonary arteries. Stable right port. Upper Abdomen: A CT Abdomen and Pelvis was concurrently performed and separately dictated. Bones and Soft Tissue: No suspicious osseous lesion. IMPRESSION: 1. No significant change in size of a few faint and punctate pulmonary nodules which are in regions of known metastasis identified on the CT from June 2017. No new or enlarging nodule. 2. No significant change in size of previously measured mediastinal lymph nodes. ABDOMEN/PELVIS WITH Observed: 01/27/2018 Status: F Source: [facility] 2:31 PM [facility] REPOSITORY EXAM: CT ABDOMEN/PELVIS WITH CONTRAST, 01/27/2018 11:46 AM COMPARISON: Multiple prior exams including the most recent CT abdomen pelvis 10/21/2017. CLINICAL INDICATIONS: Metastatic pancreatic cancer to liver, lungs and lower mediastinal and upper abdominal lymph nodes; C25.9:Pancreatic cancer metastasized to liver C78.7:Pancreatic cancer metastasized to liver L03.116:Bilateral lower leg cellulitis L03.115:Bilateral lower leg cellulitis R60.0:Bilateral leg edema TECHNIQUE: Helical axial images of the abdomen and pelvis were performed from the lung bases through the ischial tuberosities following the administration of oral and intravenous contrast. Coronal 2 mm reconstructions were also made. CONTRAST: iohexol (OMNIPAQUE) 300 MG/ML vial 50 mL; Route of Administration: Oral; Dose: 50 mL. iohexol (OMNIPAQUE) 350 MG/ML injection 1-171 mL; Route of Administration: Intravenous; Dose: 140 mL. This patient underwent a CT examination using radiation exposure as low as reasonably achievable. CTDIvol and DLP radiation exposure values for each series were: Exposure: 2; Series: 7; Anatomy: Chest/Abdomen/Pelvis; Phantom: 32 cm; CTDIvol: 25; DLP: 1300 Exposure: 1; Series: 2; Anatomy: Chest/Abdomen/Pelvis; Phantom: 32 cm; CTDIvol: 17; DLP: 580 The following accession numbers are related to this dose report {[id number]}: [id number] The dose indicators for CT are the volume Computed Tomography (CT) Dose Index (CTDIvol) and the Dose Length Product (DLP), and are measured in units of mGy and mGy-cm, respectively. These indicators are not patient dose, but values generated from the CT scanner acquisition factors and may substantially underestimate or overestimate the absorbed dose based on patient size and other factors. FINDINGS: Quantum mottle artifact limits the sensitivity of the exam. Lung bases: Please see dedicated chest CT scan of the same date for full description of the intra-thoracic contents. Liver: There are multiple poorly marginated heterogeneously hypoenhancing liver lesions, some of which have increased in size and some of which are new from 10/21/2017. Previously measured lesions are as follows: * Heterogeneously hypoenhancing left hepatic dome mass in segment 2 measures 4.9 x 4.6 cm (axial image 32), previously 4.8 x 4.5 cm. * Hypoenhancing right hepatic lobe mass in segment 7 measures 7.5 x 5.5 cm (series 7 image 44), previously 6.6 x 4.6 cm. * New hypoenhancing lesion in segment (series 7 image 60) measures 3.1 x 3.1 cm. There is narrowing of the main portal vein near the portia hepatis, similar in appearance to the prior exam. The intrahepatic right and left portal veins are patent. The portia splenic confluence is patent. Biliary/Gallbladder: The gallbladder is physiologically distended without evidence of stones. The biliary tree is nondilated. Spleen: There is a poorly marginated hypoenhancing lesion at the superior aspect of the spleen (series 7 image 23) measuring 3.4 x 2.2 cm, new in the interval. Invasive hypoenhancing lesion at the splenic hilum as described below. Pancreas: The pancreas is atrophic. No ductal dilatation. The ill-defined infiltrative heterogeneous soft tissue mass arising from the distal pancreatic tail measures 4.7 x 4.1 cm (series 7 image 49), previously 5.1 x 3.8 cm. Lesion is in close approximation to the left adrenal gland and appears to be invading the spleen at the splenic hilum as well as the anterior portion of the superior pole left kidney. Adrenals: The right adrenal gland is unremarkable. Probable invasion of the left adrenal gland from pancreatic tail mass as described above. Kidneys: The kidneys enhance symmetrically. Probable invasion of the superior pole left kidney as described above. No hydronephrosis. Gastrointestinal: Small hiatal hernia. The stomach is predominantly decompressed limiting its evaluation. Question mild thickening of the gastric antrum versus underdistention. Small bowel loops are nondistended. The appendix measures up to 6 mm in diameter (series 9 image 95), upper limits of normal. No significant periappendiceal fluid/stranding. Diverticulosis without evidence of diverticulitis. Lymph nodes: There are multiple enlarged retroperitoneal and pelvic sidewall lymph nodes with the previously indexed lesions as follows: -Enlarged portacaval lymph node measures 2.3 x 1.2 cm (series 7 image 53), previously 1.0 x 2.7 cm. -Enlarged right external iliac lymph node (series 7 image 134) measures 1.7 x 1.6 cm, previously 1.5 x 1.4 cm. -The left external iliac lymph node measures 2.2 x 1.2 cm (series 7 image 103), previously 2.0 x 1.2 cm. 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 The aorta is normal in course and caliber. Few scattered atherosclerotic calcifications throughout the aorta and its branches. Peritoneum/retroperitoneum: No free air or free fluid. Bladder: Unremarkable. Pelvic structures: Mildly enlarged prostate gland, similar to the prior exam. Body wall: Small fat containing umbilical hernia. Bony Structures: No destructive osseous lesion. Extensive multilevel degenerative change throughout the visualized spine. IMPRESSION: 1. Slight interval decrease in size of a pancreatic tail mass with probable invasion of the adjacent spleen, left kidney, and left adrenal gland. 2. Multiple ill-defined hypoenhancing lesions within the liver have increased in size and number from the prior exam suggestive of progression of disease. 3. New ill-defined hypoenhancing lesion in the superior aspect of the spleen worrisome for metastatic disease. 4. Abdominal pelvic lymphadenopathy, not significantly changed the prior exam. WITH DIFF EAST Collected: 01/21/2018 Status: F Source: [facility] 9:43 AM [facility] REPOSITORY TYPE CODE TESTS RESULT OUT OF REFERENCE UNITS RANGE LAB WBC 4.23-9.07 K/uL WBC Count 5.82 LAB RBC 4.63-6.08 M/uL RBC Count 3.57 Low LAB HGB 13.7-17.5 g/dL Hemoglobin 10.3 Low LAB HCT 40.1-51.0 % Hematocrit 32.6 Low LAB MCV 79.0-92.2 fL Mean Cell 91.3 Volume LAB MCH 25.7-32.2 pg Mean Cell 28.9 Hgb LAB MCHC 32.3-36.5 g/dL Mean Cell 31.6 Low Hgb Conc LAB RDW 11.6-14.4 % RBC 17.1 High Distribution LAB PLT 163-337 K/uL Platelet 142 Low Count LAB MPV 9.4-12.4 fL Mean 11.4 Platelet Volume LAB NRBC 0.0-0.2 /100 WBC NUCLEATED 0.0 RBC LAB DTYPE Electronic DIFFERENTIAL TYPE Differential LAB IGRE % IMMATURE 0.5 GRANS % LAB SEGS % NEUTROPHIL 57.4 SEGMENTED LAB LYM % LYMPHOCYTE 17.7 % LAB MON % MONOCYTE % 17.7 LAB EOS % EOSINOPHIL 5.7 % LAB BASO % BASOPHIL % 1.0 LAB IGABS <0.04 K/uL IMMATURE <0.04 GRANS ABSOLUTE LAB SBANS 1.78-5.38 K/uL SEGS + 3.34 Bands,Absolute LAB ALYM 1.32-3.57 K/uL Abs Lymph 1.03 Low LAB AMONO 0.30-0.82 K/uL Abs Christian 1.03 High LAB AEOS <0.55 K/uL Abs Eos 0.33 LAB ABASO <0.09 K/uL Abs Baso 0.06 Performed By: #### CBCDFE #### [place] [address] CBC WITH DIFF EAST Collected: 01/07/2018 Status: F Source: [facility] 8:31 AM [facility] REPOSITORY TYPE CODE TESTS RESULT OUT OF REFERENCE UNITS RANGE LAB WBC 4.23-9.07 K/uL WBC Count 5.42 LAB RBC 4.63-6.08 M/uL RBC Count 3.53 Low LAB HGB 13.7-17.5 g/dL Hemoglobin 10.2 Low LAB HCT 40.1-51.0 % Hematocrit 32.4 Low LAB MCV 79.0-92.2 fL Mean Cell 91.8 Volume LAB MCH 25.7-32.2 pg Mean Cell 28.9 Hgb LAB MCHC 32.3-36.5 g/dL Mean Cell 31.5 Low Hgb Conc LAB RDW 11.6-14.4 % RBC 16.8 High Distribution LAB PLT 163-337 K/uL Platelet 146 Low Count LAB MPV 9.4-12.4 fL Mean 11.0 Platelet Volume LAB NRBC 0.0-0.2 /100 WBC NUCLEATED 0.0 RBC LAB DTYPE Electronic DIFFERENTIAL TYPE Differential LAB IGRE % IMMATURE 0.6 GRANS % LAB SEGS % NEUTROPHIL 58.4 SEGMENTED LAB LYM % LYMPHOCYTE 18.8 % LAB MON % MONOCYTE % 16.1 LAB EOS % EOSINOPHIL 4.8 % LAB BASO % BASOPHIL % 1.3 LAB IGABS <0.04 K/uL IMMATURE <0.04 GRANS ABSOLUTE LAB SBANS 1.78-5.38 K/uL SEGS + 3.17 Bands,Absolute LAB ALYM 1.32-3.57 K/uL Abs Lymph 1.02 Low LAB AMONO 0.30-0.82 K/uL Abs Christian 0.87 High LAB AEOS <0.55 K/uL Abs Eos 0.26 LAB ABASO <0.09 K/uL Abs Baso 0.07 Performed By: #### CBCDFE, CHM6E, LIVPE #### [facility] [address] [place], [place] [address] #### CEA, CA199 #### [facility] [address] [id number] [place] [address] [place] [address] CHEM 6 - UHE Collected: 01/07/2018 Status: F Source: [facility] 8:31 AM [facility] REPOSITORY TYPE CODE TESTS RESULT OUT OF REFERENCE UNITS RANGE LAB BUN 7-22 mg/dL BUN 16 LAB NA 133-143 mmol/L Sodium 143 LAB K 3.5-5.0 mmol/L Potassium 4.6 LAB CL 98-108 mmol/L Chloride 103 LAB CO2 22-30 mmol/L Carbon Dioxide 30 LAB CREA 0.70-1.30 mg/dL Creatinine 1.04 LAB GAP 7-17 mmol/L Anion Gap 15 LAB BC BUN/CREA Ratio 15 LAB GFR >60 mL/min/1.73 sqM Est GFR,non >60 [place] LAB GFRA >60 mL/min/1.73 sqM Est GFR, >60 Performed By: #### CBCDFE, CHM6E, LIVPE #### [address] [address] #### CEA, CA199 #### [facility] [id number] [place] [address] [place] [address] LIVER PROFILE - [facility] Collected: 01/07/2018 Status: F Source: [facility] 8:31 AM [facility] REPOSITORY TYPE CODE TESTS RESULT OUT OF REFERENCE UNITS RANGE LAB ALT 10-52 U/L ALT 12 LAB AST 14-40 U/L AST 17 LAB ALB 3.5-5.0 g/dL Albumin 3.6 LAB ALP 32-126 U/L Low Alkaline Phosphatase 26 LAB BILD <0.3 mg/dL Bilirubin Direct 0.1 LAB BILT <1.5 mg/dL Bilirubin Total 0.4 LAB TP 6.4-8.3 g/dL Total Protein 6.4 Performed By: #### CBCDFE, CHM6E, LIVPE #### [address] [address] #### CEA, CA199 #### [facility] [address] [address] CEA Collected: 01/07/2018 Status: F Source: [facility] 8:31 AM [facility] REPOSITORY TYPE CODE TESTS RESULT OUT OF RANGE REFERENCE UNITS LAB CEA 0-5.0 ng/mL High CEA 44.2 Performed By: #### CBCDFE, CHM6E, LIVPE #### [address] [address] #### CEA, CA199 #### [facility] [address] [place] [address] CA 19-9 Collected: 01/07/2018 Status: F Source: [facility] 8:31 AM [facility] REPOSITORY TYPE CODE TESTS RESULT OUT OF RANGE REFERENCE UNITS LAB CA199 0-37.00 U/mL High CA 19-9 59.91 Performed By: #### CBCDFE, CHM6E, LIVPE #### [place] [address] #### CEA, CA199 #### [facility] [address] [place] [address] [facility] [address] [place], [place] [address] CBC WITH DIFF EAST Collected: 12/24/2017 Status: F Source: [facility] 9:49 AM [facility] REPOSITORY TYPE CODE TESTS RESULT OUT OF REFERENCE UNITS RANGE LAB WBC 4.23-9.07 K/uL WBC Count 4.89 LAB RBC 4.63-6.08 M/uL RBC Count 3.53 Low LAB HGB 13.7-17.5 g/dL Hemoglobin 10.1 Low LAB HCT 40.1-51.0 % Hematocrit 32.6 Low LAB MCV 79.0-92.2 fL Mean Cell 92.4 High Volume LAB MCH 25.7-32.2 pg Mean Cell 28.6 Hgb LAB MCHC 32.3-36.5 g/dL Mean Cell 31.0 Low Hgb Conc LAB RDW 11.6-14.4 % RBC 16.4 High Distribution LAB PLT 163-337 K/uL Platelet 143 Low Count LAB MPV 9.4-12.4 fL Mean 10.6 Platelet Volume LAB NRBC 0.0-0.2 /100 WBC NUCLEATED 0.0 RBC LAB DTYPE Electronic DIFFERENTIAL TYPE Differential LAB IGRE % IMMATURE 0.4 GRANS % LAB SEGS % NEUTROPHIL 56.0 SEGMENTED LAB LYM % LYMPHOCYTE 20.9 % LAB MON % MONOCYTE % 17.4 LAB EOS % EOSINOPHIL 4.3 % LAB BASO % BASOPHIL % 1.0 LAB IGABS <0.04 K/uL IMMATURE <0.04 GRANS ABSOLUTE LAB SBANS 1.78-5.38 K/uL SEGS + 2.74 Bands,Absolute LAB ALYM 1.32-3.57 K/uL Abs Lymph 1.02 Low LAB AMONO 0.30-0.82 K/uL Abs Christian 0.85 High LAB AEOS <0.55 K/uL Abs Eos 0.21 LAB ABASO <0.09 K/uL Abs Baso 0.05 Performed By: #### CBCDFE #### [place] [address] CBC WITH DIFF EAST Collected: 12/10/2017 Status: F Source: [facility] 8:50 AM [facility] REPOSITORY TYPE CODE TESTS RESULT OUT OF REFERENCE UNITS RANGE LAB WBC 4.23-9.07 K/uL WBC Count 3.86 Low LAB RBC 4.63-6.08 M/uL RBC Count 3.53 Low LAB HGB 13.7-17.5 g/dL Hemoglobin 10.2 Low LAB HCT 40.1-51.0 % Hematocrit 32.4 Low LAB MCV 79.0-92.2 fL Mean Cell 91.8 Volume LAB MCH 25.7-32.2 pg Mean Cell 28.9 Hgb LAB MCHC 32.3-36.5 g/dL Mean Cell 31.5 Low Hgb Conc LAB RDW 11.6-14.4 % RBC 15.9 High Distribution LAB PLT 163-337 K/uL Platelet 144 Low Count LAB MPV 9.4-12.4 fL Mean 10.5 Platelet Volume LAB NRBC 0.0-0.2 /100 WBC NUCLEATED 0.0 RBC LAB DTYPE Electronic DIFFERENTIAL TYPE Differential LAB IGRE % IMMATURE 0.3 GRANS % LAB SEGS % NEUTROPHIL 53.6 SEGMENTED LAB LYM % LYMPHOCYTE 23.6 % LAB MON % MONOCYTE % 17.4 LAB EOS % EOSINOPHIL 4.1 % LAB BASO % BASOPHIL % 1.0 LAB IGABS <0.04 K/uL IMMATURE <0.04 GRANS ABSOLUTE LAB SBANS 1.78-5.38 K/uL SEGS + 2.07 Bands,Absolute LAB ALYM 1.32-3.57 K/uL Abs Lymph 0.91 Low LAB AMONO 0.30-0.82 K/uL Abs Christian 0.67 LAB AEOS <0.55 K/uL Abs Eos 0.16 LAB ABASO <0.09 K/uL Abs Baso 0.04 Performed By: #### CBCDFE, CHM6E, LIVPE #### [facility] [address], [place] [address] #### CEA, CA199 #### [facility] [address] [place] [address] [facility] [address] [place], [place] [address] CHEM 6 - UHE Collected: 12/10/2017 Status: F Source: [facility] 8:50 AM [facility] REPOSITORY TYPE CODE TESTS RESULT OUT OF REFERENCE UNITS RANGE LAB BUN 7-22 mg/dL BUN 16 LAB NA 133-143 mmol/L Sodium 137 LAB K 3.5-5.0 mmol/L Potassium 4.4 LAB CL 98-108 mmol/L Chloride 101 LAB CO2 22-30 mmol/L Carbon Dioxide 30 LAB CREA 0.70-1.30 mg/dL Creatinine 0.98 LAB GAP 7-17 mmol/L Anion Gap 10 LAB BC BUN/CREA Ratio 16 LAB GFR >60 mL/min/1.73 sqM Est GFR,non >60 [place] LAB GFRA >60 mL/min/1.73 sqM Est GFR, >60 Performed By: #### CBCDFE, CHM6E, LIVPE #### [place] [address] #### CEA, CA199 #### [place] [address] LIVER PROFILE - E Collected: 12/10/2017 Status: F Source: [facility] 8:50 AM [facility] REPOSITORY TYPE CODE TESTS RESULT OUT OF REFERENCE UNITS RANGE LAB ALT 10-52 U/L ALT 13 LAB AST 14-40 U/L AST 18 LAB ALB 3.5-5.0 g/dL Albumin 3.6 LAB ALP 32-126 U/L Low Alkaline Phosphatase 23 LAB BILD <0.3 mg/dL Bilirubin Direct 0.1 LAB BILT <1.5 mg/dL Bilirubin Total 0.5 LAB TP 6.4-8.3 g/dL Low Total Protein 6.2 Performed By: #### CBCDFE, CHM6E, LIVPE #### [address] [address] #### CEA, CA199 #### [place] [address] CEA Collected: 12/10/2017 Status: F Source: [facility] 8:50 AM [facility] REPOSITORY TYPE CODE TESTS RESULT OUT OF RANGE REFERENCE UNITS LAB CEA 0-5.0 ng/mL High CEA 18.0 Performed By: #### CBCDFE, CHM6E, LIVPE #### [address] [address] #### CEA, CA199 #### [facility] [address] [place] [id number] [place] [address] [place] [address] CA 19-9 Collected: 12/10/2017 Status: F Source: [facility] 8:50 AM [facility] REPOSITORY TYPE CODE TESTS RESULT OUT OF RANGE REFERENCE UNITS LAB CA199 0-37.00 U/mL High CA 19-9 72.76 Performed By: #### CBCDFE, CHM6E, LIVPE #### [address] [address] #### CEA, CA199 #### [facility] [address] [address] CBC WITH DIFF EAST Collected: 11/26/2017 Status: F Source: [facility] 9:58 AM [facility] REPOSITORY TYPE CODE TESTS RESULT OUT OF REFERENCE UNITS RANGE LAB WBC 4.23-9.07 K/uL WBC Count 4.13 Low LAB RBC 4.63-6.08 M/uL RBC Count 3.58 Low LAB HGB 13.7-17.5 g/dL Hemoglobin 10.3 Low LAB HCT 40.1-51.0 % Hematocrit 32.8 Low LAB MCV 79.0-92.2 fL Mean Cell 91.6 Volume LAB MCH 25.7-32.2 pg Mean Cell 28.8 Hgb LAB MCHC 32.3-36.5 g/dL Mean Cell 31.4 Low Hgb Conc LAB RDW 11.6-14.4 % RBC 16.2 High Distribution LAB PLT 163-337 K/uL Platelet 149 Low Count LAB MPV 9.4-12.4 fL Mean 11.1 Platelet Volume LAB NRBC 0.0-0.2 /100 WBC NUCLEATED 0.0 RBC LAB DTYPE Electronic DIFFERENTIAL TYPE Differential LAB IGRE % IMMATURE 0.5 GRANS % LAB SEGS % NEUTROPHIL 56.4 SEGMENTED LAB LYM % LYMPHOCYTE 21.3 % LAB MON % MONOCYTE % 17.2 LAB EOS % EOSINOPHIL 3.9 % LAB BASO % BASOPHIL % 0.7 LAB IGABS <0.04 K/uL IMMATURE <0.04 GRANS ABSOLUTE LAB SBANS 1.78-5.38 K/uL SEGS + 2.33 Bands,Absolute LAB ALYM 1.32-3.57 K/uL Abs Lymph 0.88 Low LAB AMONO 0.30-0.82 K/uL Abs Christian 0.71 LAB AEOS <0.55 K/uL Abs Eos 0.16 LAB ABASO <0.09 K/uL Abs Baso <0.04 Performed By: #### CBCDFE #### [place] [address] CBC WITH DIFF EAST Collected: 11/12/2017 Status: F Source: [facility] 10:02 AM [facility] REPOSITORY TYPE CODE TESTS RESULT OUT OF REFERENCE UNITS RANGE LAB WBC 4.23-9.07 K/uL WBC Count 4.05 Low LAB RBC 4.63-6.08 M/uL RBC Count 3.51 Low LAB HGB 13.7-17.5 g/dL Hemoglobin 10.2 Low LAB HCT 40.1-51.0 % Hematocrit 32.3 Low LAB MCV 79.0-92.2 fL Mean Cell 92.0 Volume LAB MCH 25.7-32.2 pg Mean Cell 29.1 Hgb LAB MCHC 32.3-36.5 g/dL Mean Cell 31.6 Low Hgb Conc LAB RDW 11.6-14.4 % RBC 17.1 High Distribution LAB PLT 163-337 K/uL Platelet 156 Low Count LAB MPV 9.4-12.4 fL Mean 10.3 Platelet Volume LAB NRBC 0.0-0.2 /100 WBC NUCLEATED 0.0 RBC LAB DTYPE Electronic DIFFERENTIAL TYPE Differential LAB IGRE % IMMATURE 0.2 GRANS % LAB SEGS % NEUTROPHIL 56.5 SEGMENTED LAB LYM % LYMPHOCYTE 23.0 % LAB MON % MONOCYTE % 15.6 LAB EOS % EOSINOPHIL 3.7 % LAB BASO % BASOPHIL % 1.0 LAB IGABS <0.04 K/uL IMMATURE <0.04 GRANS ABSOLUTE LAB SBANS 1.78-5.38 K/uL SEGS + 2.29 Bands,Absolute LAB ALYM 1.32-3.57 K/uL Abs Lymph 0.93 Low LAB AMONO 0.30-0.82 K/uL Abs Christian 0.63 LAB AEOS <0.55 K/uL Abs Eos 0.15 LAB ABASO <0.09 K/uL Abs Baso 0.04 Performed By: #### ELIS LOO LIVPE #### [address] [address] #### CEA, CA199 #### [facility] [address] [place] [address] CHEM 6 - UHE Collected: 11/12/2017 Status: F Source: [facility] 10:02 AM [facility] REPOSITORY TYPE CODE TESTS RESULT OUT OF REFERENCE UNITS RANGE LAB BUN 7-22 mg/dL BUN 13 LAB NA 133-143 mmol/L Sodium 138 LAB K 3.5-5.0 mmol/L Potassium 4.4 LAB CL 98-108 mmol/L Chloride 102 LAB CO2 22-30 mmol/L Carbon Dioxide 30 LAB CREA 0.70-1.30 mg/dL Creatinine 0.98 LAB GAP 7-17 mmol/L Anion Gap 10 LAB BC BUN/CREA Ratio 13 LAB GFR >60 mL/min/1.73 sqM Est GFR,non >60 [place] LAB GFRA >60 mL/min/1.73 sqM Est GFR, >60 Performed By: #### ELIS LOO LIVPE #### [address] [address] #### JODI, CA199 #### [place] [address] LIVER PROFILE - UHE Collected: 11/12/2017 Status: F Source: [facility] 10:02 AM [facility] REPOSITORY TYPE CODE TESTS RESULT OUT OF REFERENCE UNITS RANGE LAB ALT 10-52 U/L ALT 12 LAB AST 14-40 U/L AST 16 LAB ALB 3.5-5.0 g/dL Albumin 3.7 LAB ALP 32-126 U/L Low Alkaline Phosphatase 23 LAB BILD <0.3 mg/dL Bilirubin Direct 0.1 LAB BILT <1.5 mg/dL Bilirubin Total 0.4 LAB TP 6.4-8.3 g/dL Total Protein 6.7 Performed By: #### CBCDFE, CHM6E, LIVPE #### [address] [address] #### CEA, CA199 #### [facility] [id number] [place] [address] [address] CEA Collected: 11/12/2017 Status: F Source: [facility] 10:02 AM [facility] REPOSITORY TYPE CODE TESTS RESULT OUT OF RANGE REFERENCE UNITS LAB CEA 0-5.0 ng/mL High CEA 11.5 Performed By: #### CBCDFE, CHM6E, LIVPE #### [address] [address] #### CEA, CA199 #### [facility] [id number] [place] [address] [address] [place] 19-9 Collected: 11/12/2017 Status: F Source: [facility] 10:02 AM [facility] REPOSITORY TYPE CODE TESTS RESULT OUT OF RANGE REFERENCE UNITS LAB CA199 0-37.00 U/mL High CA 19-9 85.20 Performed By: #### CBCDFE, CHM6E, LIVPE #### [address] [address] #### CEA, CA199 #### [facility] [address] [address] [facility] [address] [address] CBC WITH DIFF EAST Collected: 10/29/2017 Status: F Source: [facility] 8:24 AM [facility] REPOSITORY TYPE CODE TESTS RESULT OUT OF REFERENCE UNITS RANGE LAB WBC 4.23-9.07 K/uL WBC Count 4.23 LAB RBC 4.63-6.08 M/uL RBC Count 3.64 Low LAB HGB 13.7-17.5 g/dL Hemoglobin 10.4 Low LAB HCT 40.1-51.0 % Hematocrit 33.2 Low LAB MCV 79.0-92.2 fL Mean Cell 91.2 Volume LAB MCH 25.7-32.2 pg Mean Cell 28.6 Hgb LAB MCHC 32.3-36.5 g/dL Mean Cell 31.3 Low Hgb Conc LAB RDW 11.6-14.4 % RBC 17.5 High Distribution LAB PLT 163-337 K/uL Platelet 169 Count LAB MPV 9.4-12.4 fL Mean 10.7 Platelet Volume LAB NRBC 0.0-0.2 /100 WBC NUCLEATED 0.0 RBC LAB DTYPE Electronic DIFFERENTIAL TYPE Differential LAB IGRE % IMMATURE 0.2 GRANS % LAB SEGS % NEUTROPHIL 57.1 SEGMENTED LAB LYM % LYMPHOCYTE 21.0 % LAB MON % MONOCYTE % 18.0 LAB EOS % EOSINOPHIL 2.8 % LAB BASO % BASOPHIL % 0.9 LAB IGABS <0.04 K/uL IMMATURE <0.04 GRANS ABSOLUTE LAB SBANS 1.78-5.38 K/uL SEGS + 2.41 Bands,Absolute LAB ALYM 1.32-3.57 K/uL Abs Lymph 0.89 Low LAB AMONO 0.30-0.82 K/uL Abs Christian 0.76 LAB AEOS <0.55 K/uL Abs Eos 0.12 LAB ABASO <0.09 K/uL Abs Baso 0.04 Performed By: #### CBCDFE #### [place] [address] [address] ABDOMEN/PELVIS WITH Observed: 10/23/2017 Status: F Source: [facility] CONTRAST 1:03 PM [facility] REPOSITORY EXAM: CT ABDOMEN/PELVIS WITH CONTRAST, 10/21/2017 11:20 AM COMPARISON: Outside hospital CT abdomen pelvis performed July 04, 2017. Correlation to PET/CT performed August 05, 2017. CLINICAL INDICATIONS: metastatic pancreatic cancer to liver, lungs and lymph nodes on chemo; C25.9:Pancreatic cancer metastasized to liver C78.7:Pancreatic cancer metastasized to liver TECHNIQUE: Helical axial images of the abdomen and pelvis were performed from the lung bases through the ischial tuberosities following the administration of oral and intravenous contrast. Coronal 2 mm reconstructions were also made. CONTRAST: iohexol (OMNIPAQUE) 300 MG/ML vial 50 mL; Route of Administration: Oral; Dose: 50 mL. iohexol (OMNIPAQUE) 350 MG/ML injection 1-171 mL; Route of Administration: Intravenous; Dose: 140 mL. This patient underwent a CT examination using radiation exposure as low as reasonably achievable. CTDIvol and DLP radiation exposure values for each series were: Exposure: 2; Series: 7; Anatomy: Chest/Abdomen/Pelvis; Phantom: 32 cm; CTDIvol: 25; DLP: 1262 Exposure: 1; Series: 4; Anatomy: Chest/Abdomen/Pelvis; Phantom: 32 cm; CTDIvol: 17; DLP: 635 The following accession numbers are related to this dose report {[id number]}: [id number] The dose indicators for CT are the volume Computed Tomography (CT) Dose Index (CTDIvol) and the Dose Length Product (DLP), and are measured in units of mGy and mGy-cm, respectively. These indicators are not patient dose, but values generated from the CT scanner acquisition factors and may substantially underestimate or overestimate the absorbed dose based on patient size and other factors. FINDINGS: Lung Bases: Please see dedicated chest CT scan of the same date for full description of the intra-thoracic contents. ABDOMEN Liver: Multiple heterogeneous hypoattenuating hepatic lesions and masses seen. General Freight Agent lesions include: * Heterogeneously hypoattenuating left hepatic dome mass in segment 2 measures 4.8 x 4.5 cm, previously 6.6 x 6.4 cm (axial image 24). * Hypoattenuating right hepatic lobe mass in segment 7 measures 6.6 x 4.6 cm, previously 10.4 x 6.9 cm (axial image 35). * Additional hypoattenuating lesion in the inferior right hepatic lobe in segment 5 measures 2.6 x 1.7 cm, previously 3.4 x 2.7 cm (axial image 49). The main portal vein is patent. No definite new focal hepatic lesion compared to outside hospital imaging from July 04, 2017. Biliary/Gallbladder: The gallbladder is normal without evidence of radiopaque stones. The biliary tree is nondilated. Spleen: Probable invasion of these splenic parenchyma near the splenic hilum by a pancreatic tail mass as detailed below. Pancreas: Mild pancreatic fatty atrophy. No peripancreatic ductal dilation or peripancreatic collection. There is an ill-defined infiltrative heterogeneous soft tissue mass arising from the distal portion of the pancreatic tail measuring approximately 5.1 x 3.8 cm, previously 6.0 x 5.3 cm (axial image 44). This mass appears to invade the adjacent splenic parenchyma at the region of the splenic hilum, the anterior portion of the left kidney, and portions of the adjacent left adrenal gland (axial images 46). Kidneys: The kidneys are normal in size with symmetric enhancement. Probable invasion of the superior pole of the left kidney by a ill-defined infiltrated with pancreatic tail mass. No renal calculi or hydroureteronephrosis. Adrenals: Problem position of the left adrenal gland by an ill-defined pancreatic tail mass as detailed above. The right adrenal gland is unremarkable. No discrete adrenal gland nodules. Retroperitoneal/Vasculature: Enlarged ill-defined portacaval lymph node evident measuring approximately 2.7 x 1.0 cm, previously 3.0 x 1.6 cm (axial image 44). Numerous other prominent upper abdominal and pelvic lymph nodes are seen. With reference nodes as follows: A right external iliac lymph node measuring 1.5 x 1.4 cm, previously 1.3 x 1.2 cm (image 126). A left external iliac lymph node measures 2.0 x 1.2 cm, previously 2.3 x 1.2 cm (image 122). Gastrointestinal/Mesentery: Oral contrast opacifies the small bowel. No signs of obstruction. Normal appendix (axial image 92). Colonic diverticulosis, particularly involving the descending/sigmoid colon, without evidence of acute inflammation. PELVIS Bladder: The bladder is normal. Genital: The prostate is enlarged measuring 5.9 cm in transverse dimension. The seminal vesicles are symmetric. Other: No peritoneal free fluid or air. Bony Structures: Degenerative changes of the thoracolumbar spine. No aggressive osseous lesions appreciated. IMPRESSION: 1. Ill-defined infiltrative pancreatic tail mass with probable local invasion of the adjacent spleen, left kidney, and left adrenal gland. 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 Overall the pancreatic tail mass and hepatic lesions have decreased in size compared to July 04, 2017. 2. Multiple hypoattenuating hepatic lesions and masses are also seen, presumably metastatic. 3. Decreased size of a prominent presumably metastatic portal caval lymph node compared to July 04, 2017. Persistent narrowing of the main portal vein. Additional prominent retroperitoneal and pelvic lymph nodes slightly increased in size from prior exam. 4. No aggressive osseous lesions appreciated. I personally viewed and interpreted these images and I have reviewed and approved this report. CHEST WITH Observed: 10/21/2017 Status: F Source: [facility] 11:52 AM [facility] REPOSITORY EXAM: CT CHEST WITH CONTRAST, 10/21/2017 11:20 AM COMPARISON: Chest CT dated July 05, 2017. CLINICAL INDICATIONS: metastatic pancreatic cancer to liver, lungs and LNs; RELEVANT CLINICAL HISTORY: C25.9:Pancreatic cancer metastasized to liver C78.7:Pancreatic cancer metastasized to liver TECHNIQUE: Following the administration of intravenous contrast, axial CT images were reconstructed from the volumetric data set, from the thoracic inlet through the adrenal glands. Coronal MIP images were also reconstructed. CONTRAST: iohexol (OMNIPAQUE) 300 MG/ML vial 50 mL; Route of Administration: Oral; Dose: 50 mL. iohexol (OMNIPAQUE) 350 MG/ML injection 1-171 mL; Route of Administration: Intravenous; Dose: 140 mL. This patient underwent a CT examination using radiation exposure as low as reasonably achievable. CTDIvol and DLP radiation exposure values for each series were: Exposure: 1; Series: 4; Anatomy: Chest/Abdomen/Pelvis; Phantom: 32 cm; CTDIvol: 17; DLP: 635 Exposure: 2; Series: 7; Anatomy: Chest/Abdomen/Pelvis; Phantom: 32 cm; CTDIvol: 25; DLP: 1262 The following accession numbers are related to this dose report {[id number]}: [id number] The dose indicators for CT are the volume Computed Tomography (CT) Dose Index (CTDIvol) and the Dose Length Product (DLP), and are measured in units of mGy and mGy-cm, respectively. These indicators are not patient dose, but values generated from the CT scanner acquisition factors and may substantially underestimate or overestimate the absorbed dose based on patient size and other factors. FINDINGS: Lungs and Pleura: Interval decrease in size of right lower lobe subpleural punctate nodule which measured 0.9 cm (image 61) as well as decrease in size of left lower lobe punctate nodule compared to 0.5 cm previously (image 76). Stable size of a few additional punctate pulmonary nodules. No new or enlarging pulmonary nodules identified. Mild bilateral dependent and basilar subsegmental atelectasis bilaterally. Stable size of left lower lobe thin-walled cyst. No consolidation or pleural effusion. Tracheobronchial tree: Trachea and central bronchi are patent. Mediastinum/Celia: Slight interval decrease in size of small left descending periaortic/periesophageal 0.7 x 0.6 cm lymph node compared to 1.0 x 0.8 cm previously, which was hypermetabolic on prior August 05, 2017 PET/CT (image 55). Otherwise relatively stable size of a few scattered additional small/borderline enlarged distal periesophageal and right pericardiac/juxtaphrenic lymph nodes. For example, left distal periesophageal 1.4 x 0.8 cm lymph node, 1.3 x 0.8 cm previously (image 76) and right pericardiac/juxtaphrenic 1.2 x 0.8 cm lymph node, 1.3 x 0.8 cm previously (image 65). No hilar lymphadenopathy. Axilla and Supraclavicular Region: No axillary or supraclavicular adenopathy. Visualized thyroid gland is unremarkable. Cardiovascular: The cardiac chambers and pericardium are within normal limits. Aortic/branch vessel as well as scattered coronary artery atherosclerotic calcifications. Central pulmonary arteries are unremarkable. Right IJ central venous catheter tip is near the cavoatrial junction. Upper Abdomen: Please see separate abdomen/pelvis CT report of this same date for evaluation of the visualized upper abdominal structures. Bones and Soft Tissue: No suspicious osseous lesion. Mild degenerative changes in the spine. IMPRESSION: 1. Interval decrease in size of a few previously identified bilateral pulmonary nodules which could represent improved infectious/inflammatory etiology and/or response to treatment at metastatic disease. Recommend continued chest CT follow-up to evaluate for stability and an interval of 2-3 months is suggested. 2. Scattered small /borderline enlarged posterior mediastinal and right pericardiac/juxtaphrenic lymph nodes which are stable in size or slightly smaller compared to prior exam. No new or enlarging suspicious intrathoracic lymph nodes. 3. Additional incidental and stable chronic findings as above. 4. Please see separate abdomen/pelvis CT report of this same date for evaluation of the visualized upper abdominal structures. WITH DIFF EAST Collected: 10/15/2017 Status: F Source: [facility] 8:40 AM [facility] REPOSITORY TYPE CODE TESTS RESULT OUT OF REFERENCE UNITS RANGE LAB WBC 4.23-9.07 K/uL WBC Count 4.75 LAB RBC 4.63-6.08 M/uL RBC Count 3.55 Low LAB HGB 13.7-17.5 g/dL Hemoglobin 10.1 Low LAB HCT 40.1-51.0 % Hematocrit 32.6 Low LAB MCV 79.0-92.2 fL Mean Cell 91.8 Volume LAB MCH 25.7-32.2 pg Mean Cell 28.5 Hgb LAB MCHC 32.3-36.5 g/dL Mean Cell 31.0 Low Hgb Conc LAB RDW 11.6-14.4 % RBC 17.8 High Distribution LAB PLT 163-337 K/uL Platelet 180 Count LAB MPV 9.4-12.4 fL Mean 10.4 Platelet Volume LAB NRBC 0.0-0.2 /100 WBC NUCLEATED 0.0 RBC LAB DTYPE Electronic DIFFERENTIAL TYPE Differential LAB IGRE % IMMATURE 0.4 GRANS % LAB SEGS % NEUTROPHIL 63.9 SEGMENTED LAB LYM % LYMPHOCYTE 18.5 % LAB MON % MONOCYTE % 14.3 LAB EOS % EOSINOPHIL 2.3 % LAB BASO % BASOPHIL % 0.6 LAB IGABS <0.04 K/uL IMMATURE <0.04 GRANS ABSOLUTE LAB SBANS 1.78-5.38 K/uL SEGS + 3.03 Bands,Absolute LAB ALYM 1.32-3.57 K/uL Abs Lymph 0.88 Low LAB AMONO 0.30-0.82 K/uL Abs Christian 0.68 LAB AEOS <0.55 K/uL Abs Eos 0.11 LAB ABASO <0.09 K/uL Abs Baso <0.04 Performed By: #### CBCDFE, CHM6E, LIVPE #### [address] [address] #### CEA, CA199 #### [facility] [address] [address] [facility] [address] [place] [address] CHEM 6 - UHE Collected: 10/15/2017 Status: F Source: [facility] 8:40 AM [facility] REPOSITORY TYPE CODE TESTS RESULT OUT OF REFERENCE UNITS RANGE LAB BUN 7-22 mg/dL BUN 13 LAB NA 133-143 mmol/L Sodium 135 LAB K 3.5-5.0 mmol/L Potassium 4.6 LAB CL 98-108 mmol/L Chloride 100 LAB CO2 22-30 mmol/L Carbon High Dioxide 31 LAB CREA 0.70-1.30 mg/dL Creatinine 0.90 LAB GAP 7-17 mmol/L Anion Gap 9 LAB BC BUN/CREA Ratio 14 LAB GFR >60 mL/min/1.73 sqM Est GFR,non >60 [place] LAB GFRA >60 mL/min/1.73 sqM Est GFR, >60 Performed By: #### CBCDFE, CHM6E, LIVPE #### [address] [address] #### CEA, CA199 #### [facility] [address] [place] [address] LIVER PROFILE - E Collected: 10/15/2017 Status: F Source: [facility] 8:40 AM [facility] REPOSITORY TYPE CODE TESTS RESULT OUT OF REFERENCE UNITS RANGE LAB ALT 10-52 U/L ALT 13 LAB AST 14-40 U/L AST 14 LAB ALB 3.5-5.0 g/dL Albumin 3.5 LAB ALP 32-126 U/L Low Alkaline Phosphatase 27 LAB BILD <0.3 mg/dL Bilirubin Direct 0.1 LAB BILT <1.5 mg/dL Bilirubin Total 0.3 LAB TP 6.4-8.3 g/dL Low Total Protein 6.1 Performed By: #### CBCDFE, CHM6E, LIVPE #### [address] [address] #### CEA, CA199 #### [facility] [address] [place] [address] CEA Collected: 10/15/2017 Status: F Source: [facility] 8:40 AM [facility] REPOSITORY TYPE CODE TESTS RESULT OUT OF RANGE REFERENCE UNITS LAB CEA 0-5.0 ng/mL High CEA 12.0 Performed By: #### CBCDFE, CHM6E, LIVPE #### [address] [address] #### CEA, CA199 #### [facility] [address] [place] [address] CA 19-9 Collected: 10/15/2017 Status: F Source: [facility] 8:40 AM [facility] REPOSITORY TYPE CODE TESTS RESULT OUT OF RANGE REFERENCE UNITS LAB CA199 0-37.00 U/mL High CA 19-9 133.42 Performed By: #### CBCDFE, CHM6E, LIVPE #### [facility] [address] [place], [place] [address] #### CEA, CA199 #### [facility] [address] [place] [address] [facility] [address] [place], [place] [address] CBC WITH DIFF EAST Collected: 10/01/2017 Status: F Source: [facility] 9:00 AM [facility] REPOSITORY TYPE CODE TESTS RESULT OUT OF REFERENCE UNITS RANGE LAB WBC 4.23-9.07 K/uL WBC Count 4.43 LAB RBC 4.63-6.08 M/uL RBC Count 3.57 Low LAB HGB 13.7-17.5 g/dL Hemoglobin 10.2 Low LAB HCT 40.1-51.0 % Hematocrit 32.8 Low LAB MCV 79.0-92.2 fL Mean Cell 91.9 Volume LAB MCH 25.7-32.2 pg Mean Cell 28.6 Hgb LAB MCHC 32.3-36.5 g/dL Mean Cell 31.1 Low Hgb Conc LAB RDW 11.6-14.4 % RBC 17.9 High Distribution LAB PLT 163-337 K/uL Platelet 155 Low Count LAB MPV 9.4-12.4 fL Mean 10.7 Platelet Volume LAB NRBC 0.0-0.2 /100 WBC NUCLEATED 0.0 RBC LAB DTYPE Electronic DIFFERENTIAL TYPE Differential LAB IGRE % IMMATURE 0.5 GRANS % LAB SEGS % NEUTROPHIL 60.0 SEGMENTED LAB LYM % LYMPHOCYTE 21.7 % LAB MON % MONOCYTE % 13.8 LAB EOS % EOSINOPHIL 2.9 % LAB BASO % BASOPHIL % 1.1 LAB IGABS <0.04 K/uL IMMATURE <0.04 GRANS ABSOLUTE LAB SBANS 1.78-5.38 K/uL SEGS + 2.66 Bands,Absolute LAB ALYM 1.32-3.57 K/uL Abs Lymph 0.96 Low LAB AMONO 0.30-0.82 K/uL Abs Christian 0.61 LAB AEOS <0.55 K/uL Abs Eos 0.13 LAB ABASO <0.09 K/uL Abs Baso 0.05 Performed By: #### CBCDFE #### [place] [address] CBC WITH DIFF EAST Collected: 09/17/2017 Status: F Source: [facility] 10:11 AM [facility] REPOSITORY TYPE CODE TESTS RESULT OUT OF REFERENCE UNITS RANGE LAB WBC 4.23-9.07 K/uL WBC Count 5.64 LAB RBC 4.63-6.08 M/uL RBC Count 3.52 Low LAB HGB 13.7-17.5 g/dL Hemoglobin 9.9 Low LAB HCT 40.1-51.0 % Hematocrit 32.1 Low LAB MCV 79.0-92.2 fL Mean Cell 91.2 Volume LAB MCH 25.7-32.2 pg Mean Cell 28.1 Hgb LAB MCHC 32.3-36.5 g/dL Mean Cell 30.8 Low alert Hgb Conc LAB RDW 11.6-14.4 % RBC 17.3 High Distribution LAB PLT 163-337 K/uL Platelet 164 Count LAB MPV 9.4-12.4 fL Mean 10.2 Platelet Volume LAB NRBC 0.0-0.2 /100 WBC NUCLEATED 0.0 RBC LAB DTYPE Electronic DIFFERENTIAL TYPE Differential LAB IGRE % IMMATURE 0.9 GRANS % LAB SEGS % NEUTROPHIL 63.1 SEGMENTED LAB LYM % LYMPHOCYTE 19.5 % LAB MON % MONOCYTE % 12.9 LAB EOS % EOSINOPHIL 2.5 % LAB BASO % BASOPHIL % 1.1 LAB IGABS 0.00-0.03 K/uL IMMATURE 0.05 High GRANS ABSOLUTE LAB SBANS 1.78-5.38 K/uL SEGS + 3.56 Bands,Absolute LAB ALYM 1.32-3.57 K/uL Abs Lymph 1.10 Low LAB AMONO 0.30-0.82 K/uL Abs Christian 0.73 LAB AEOS 0.04-0.54 K/uL Abs Eos 0.14 LAB ABASO 0.01-0.08 K/uL Abs Baso 0.06 Performed By: #### CBCDFE, CHM6E, LIVPE #### [place] [address] #### CEA, CA199 #### [facility] [address] [address] CHEM 6 - UHE Collected: 09/17/2017 Status: F Source: [facility] 10:11 AM [facility] REPOSITORY TYPE CODE TESTS RESULT OUT OF REFERENCE UNITS RANGE LAB BUN 7-22 mg/dL BUN 11 LAB NA 133-143 mmol/L Sodium 139 LAB K 3.5-5.0 mmol/L Potassium 4.5 LAB CL 98-108 mmol/L Chloride 103 LAB CO2 22-30 mmol/L Carbon Dioxide 29 LAB CREA 0.70-1.30 mg/dL Creatinine 0.95 LAB GAP 7-17 mmol/L Anion Gap 12 LAB BC BUN/CREA Ratio 12 LAB GFR >60 mL/min/1.73 sqM Est GFR,non >60 [place] LAB GFRA >60 mL/min/1.73 sqM Est GFR, >60 Performed By: #### CINDA, JESUSM6E, LIVPE #### [place] [address] #### CEA, CA199 #### [facility] [address] [place] [address] LIVER PROFILE - UHE Collected: 09/17/2017 Status: F Source: [facility] 10:11 AM [facility] REPOSITORY TYPE CODE TESTS RESULT OUT OF REFERENCE UNITS RANGE LAB ALT 10-52 U/L ALT 12 LAB AST 14-40 U/L AST 15 LAB ALB 3.5-5.0 g/dL Albumin 3.6 LAB ALP 32-126 U/L Low Alkaline Phosphatase 24 LAB BILD <0.3 mg/dL Bilirubin Direct 0.2 LAB BILT <1.5 mg/dL Bilirubin Total 0.4 LAB TP 6.4-8.3 g/dL Low Total Protein 6.3 Performed By: #### CBCDFE, CHM6E, LIVPE #### [address] [address] #### CEA, CA199 #### [facility] [address] [place] [address] CEA Collected: 09/17/2017 Status: F Source: [facility] 10:11 AM [facility] REPOSITORY TYPE CODE TESTS RESULT OUT OF RANGE REFERENCE UNITS LAB CEA 0-5.0 ng/mL High CEA 16.1 Performed By: #### CBCDFE, CHM6E, LIVPE #### [address] [address] #### CEA, CA199 #### [facility] [address] [address] [place] 19-9 Collected: 09/17/2017 Status: F Source: [facility] 10:11 AM [facility] REPOSITORY TYPE CODE TESTS RESULT OUT OF RANGE REFERENCE UNITS LAB CA199 0-37.00 U/mL High CA 19-9 166.54 Performed By: #### CBCDFE, CHM6E, LIVPE #### [address] [address] #### CEA, CA199 #### [facility] [id number] [place] [id number] EMERGENCY REPORT Observed: 09/05/2017 Status: F Source: [facility] NAME ACCOUNT SEX AGE ADMIT DISCHARGE PT MED. RECORD# NUMBER DATE DATE TYPE PACO [id number] Lili 61 08/27/17 08/27/[address] [place] [address] [id number] ROOM: ER DATE OF : 1955 DICTATING PHYSICIAN: Esvin Ryan CHIEF COMPLAINT: Right leg redness and swelling. HISTORY OF PRESENT ILLNESS: Patient has had previous right leg cellulitis. He is also being treated for pancreatic cancer with chemotherapy. He has developed redness and swelling to his right lower leg over the past several days. He is not complaining of pain. He has not had fever or chills, but his curriculum coordinator, oncologist recommended that he be evaluated for possible DVT. 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 He really is having minimal complaints. PAST MEDICAL HISTORY: Significant for hypertension and diabetes. As mentioned, as had previous DVT/PE, also has been recently diagnosed with pancreatic cancer. MEDICATIONS: Per medication reconciliation list. ALLERGIES: No allergies. SOCIAL HISTORY: He is . He lives at home. He does not smoke. Drinks alcohol rarely. PHYSICAL EXAMINATION: A 61-year-old, obese male, alert, appropriate, pleasant. Does not appear toxic or in acute distress. His skin is warm and dry. HEENT examination: Normal. His neck is supple without adenopathy. Lungs are clear without crackles or wheezes. Abdomen: Soft and nontender. He has moderate redness and induration with some slight warmth, diffusely to his right lower leg, mainly from the ankle to the knee. There are no open areas. It is minimally tender but quite reddened. Good peripheral pulses and capillary refill. Vital signs: Blood pressure 146/87, pulse 119, respirations 14, temperature 98.8. DIAGNOSTIC DATA: He had a CRP of 8. CMP; glucose 172, otherwise within normal limits. CBC showed a white count of 6400, normal differential. EMERGENCY DEPARTMENT COURSE AND TREATMENT: Patient did have an IV placed and some lab studies were obtained. Clinically this appears to more of a right cellulitis. He was given 3 grams of Unasyn IV and started on Augmentin. DIAGNOSIS: Right leg redness, cellulitis, rule out deep vein thrombosis. Page 1 of 2 CARINE ANTONIO Emergency Room Report PLAN/DISPOSITION: We will get him set up to get a venous Doppler tomorrow. He was given injection of Lovenox 160 mg tonight, a prescription for Augmentin, keeping his right leg elevated with minimal weightbearing and follow up with family doctor in 2 to 4 days. Dictated By: Esvin Ryan MD 08/27/17 20:39 JOB #: [id number] Transcribed By: roberto 08/28/17 13:38 Electronically signed by: GLENNA Ryan M.D. 09/05/17 08:35 Page 2 of 2 CARINE ANTONIO Emergency Room Report CBC WITH DIFF EAST Collected: 09/03/2017 Status: F Source: [facility] 8:55 AM [facility] REPOSITORY TYPE CODE TESTS RESULT OUT OF REFERENCE UNITS RANGE LAB WBC 4.23-9.07 K/uL WBC Count 5.52 LAB RBC 4.63-6.08 M/uL RBC Count 3.65 Low LAB HGB 13.7-17.5 g/dL Hemoglobin 10.3 Low LAB HCT 40.1-51.0 % Hematocrit 32.8 Low LAB MCV 79.0-92.2 fL Mean Cell 89.9 Volume LAB MCH 25.7-32.2 pg Mean Cell 28.2 Hgb LAB MCHC 32.3-36.5 g/dL Mean Cell 31.4 Low Hgb Conc LAB RDW 11.6-14.4 % RBC 16.4 High Distribution LAB PLT 163-337 K/uL Platelet 197 Count LAB MPV 9.4-12.4 fL Mean 10.2 Platelet Volume LAB NRBC 0.0-0.2 /100 WBC NUCLEATED 0.0 RBC LAB DTYPE Electronic DIFFERENTIAL TYPE Differential LAB IGRE % IMMATURE 0.4 GRANS % LAB SEGS % NEUTROPHIL 64.1 SEGMENTED LAB LYM % LYMPHOCYTE 19.2 % LAB MON % MONOCYTE % 11.4 LAB EOS % EOSINOPHIL 4.2 % LAB BASO % BASOPHIL % 0.7 LAB IGABS 0.00-0.03 K/uL IMMATURE <0.04 High GRANS ABSOLUTE LAB SBANS 1.78-5.38 K/uL SEGS + 3.54 Bands,Absolute LAB ALYM 1.32-3.57 K/uL Abs Lymph 1.06 Low LAB AMONO 0.30-0.82 K/uL Abs Christian 0.63 LAB AEOS 0.04-0.54 K/uL Abs Eos 0.23 LAB ABASO 0.01-0.08 K/uL Abs Baso 0.04 Performed By: #### CBCDFE #### [place] [address] CV VENOUS LEG RT Observed: 08/28/2017 Status: F Source: [facility] 11:06 AM [place] [address] Patient: PACO CARINE Micheal Phone#: : [phone] Age: 61 Gender: M Pt. Type: Out Account: [id number] Location: [facility] Ordering: DAHLIA ZULETA Exam Date: 08/28/2017/10:07 Family Phys: DEEDEE JESUS Charge Code: [id number] Physician: [place] Order #: [id number] DLP Dose#: PROCEDURE: VENOUS DOPPLER RT LEG COMPARISON: [facility], , VENOUS DOPPLER RT LEG, 01/15/2016, 9:42. INDICATIONS: Cellulitis and leg pain TECHNIQUE: Color duplex Doppler ultrasound evaluation analysis was performed in the usual manner. DIRECTOR OF PROVIDER RELATIONS: NOEMI RISK FACTORS FOR VENOUS DISEASE: Other Cellulitis, leg pain EXAMINATION: RIGHT +Present -Reduced o Absent LEFT SPONT PHASIC AUG REFLUX COMP SPONT PHASIC AUG REFLUX COMP + + + o + CFV - - - o - + SFJ + + + o + FV (prox) + FV (mid) + FV (dist) + + + o + POP V + + + o + T/P TRUNK + + + o + PTV + + + o + PERONEAL V + GSV o GASTROC SOLEAL V DIRECTOR OF PROVIDER RELATIONS'S NOTES: Continued Report - Page 2 of 2 Patient: CARINE ANTONIO Phone#: : [phone] Age: 61 Gender: M Pt. Type: Out Account: [id number] Location: [facility] Ordering: DAHLIA ZULETA Exam Date: 08/28/2017/10:07 Family Phys: DEEDEE JESUS Charge Code: [id number] Physician: [place] Order #: [id number] DLP Dose#: Preliminary results called to SONIA Glasgow in ED at 10:50 and Tonya at [facility] at 10:53. Right calf veins difficult to visualize d/t patient body habitus and edema FINDINGS: Limited visualization of the calf veins do to subcutaneous edema and patient body habitus. THROMBI: Echogenic thrombus is seen in the left common femoral vein and gastrocnemius vein. COMPRESSIBILITY: Noncompressible right gastrocnemius vein. Partially compressible left common femoral vein. OTHER: Negative. CONCLUSION: 1. Thrombosed right gastrocnemius vein and left common femoral vein. The extent of the left common femoral vein thrombus was not evaluated on this exam. Recommend dedicated left lower extremity DVT study. Dictated by: Kellie Tamayo MD on 08/28/2017 at 11:50 Approved by: Kellie Tamayo MD on 08/28/2017 at 11:50 CBC Collected: 08/27/2017 Status: F Source: [facility] 7:20 PM [facility] REPOSITORY TYPE CODE TESTS RESULT OUT OF RANGE REFERENCE UNITS LAB CBC(LOINC) CBC Result Comment: CBC-COMPLETE BLOOD COUNT LAB WBC(LOINC) 4.5 - 10.8 x 10EE3/UL WBC 6.4 LAB RBC(LOINC) 4.50 - x 10EE6/UL 6.00 RBC Low 3.75 LAB HEMOGLOBIN(LOINC) 13.0 - g/dl 17.5 Low HEMOGLOBIN 10.6 LAB HEMATOCRIT(LOINC) 40.0 - % 52.0 Low HEMATOCRIT 32.5 LAB MCV(LOINC) 81 - 98 fl MCV 87 LAB MCH(LOINC) 27 - 33 pg MCH 28 LAB MCHC(LOINC) 32 - 36 X10 3 MCHC 33 LAB RDW/CV(LOINC) 12.0 - % 15.6 RDW/CV 15.1 LAB PLATELET(LOINC) 150 - 450 x10EE3/UL PLATELET 242 LAB MPV(LOINC) 6.4 - 10.5 fl MPV 8.9 Result Comment: AUTOMATED DIFFERENTIAL LAB NEUT %(LOINC) 46.0 - 76.0 % NEUT % 69.7 LAB LYMPH %(LOINC) 20.0 - 45.0 % LYMPH % Low 17.9 LAB MONOS %(LOINC) 0.0 - 10.0 % MONOS % 9.7 LAB EO %(LOINC) 0.0 - 7.0 % EO % 1.8 LAB BASO %(LOINC) 0.0 - 2.0 % BASO % 0.9 LAB Lymph #(LOINC) 0.80 - 2.80 x10EE3/U L Lymph # 1.20 LAB Neut #(LOINC) 1.50 - 7.10 x10EE3/U L Neut # 4.50 LAB Christian #(LOINC) 0.20 - 1.00 x10EE3/U L Christian # 0.60 LAB EO #(LOINC) 0.00 - 0.50 x10EE3/U L EO # 0.10 LAB Baso #(LOINC) 0.00 - 0.10 x10EE3/U L Baso # 0.10 LAB MANUAL DIFF(LOINC) MANUAL DIFF N/A LAB MORPHOLOGY(LOINC ) MORPHOLOGY N/A Result Comment: {CD] Performed By: #### [id number] #### [facility],[address] [place] [id number] LACTATE Collected: 08/27/2017 Status: F Source: [facility] 7:20 PM [facility] REPOSITORY TYPE CODE TESTS RESULT OUT OF REFERENCE UNITS RANGE LAB LACTATE(GEORGE 4.5 - 18.0 mg/dL NC) High LACTATE 22.2 Performed By: #### [id number] #### [place] [id number] CMP WITH EGFR Collected: 08/27/2017 Status: F Source: [facility] 7:20 PM [facility] REPOSITORY TYPE CODE TESTS RESULT OUT OF RANGE REFERENCE UNITS LAB CMP with eGFR(LOINC) CMP with eGFR Result Comment: COMPREHENSIVE METABOLIC PANEL LAB SODIUM(LOINC) 136 - 145 mmol/l SODIUM 137 LAB POTASSIUM(LOINC) 3.5 - 5.1 mmol/L POTASSIUM 4.4 LAB CHLORIDE(LOINC) 98 - 107 mmol/L CHLORIDE 99 LAB CO2(LOINC) 21.0 - mmol/L 31.0 CO2 27.6 LAB GLUCOSE(LOINC) 74 - 106 mg/dl GLUCOSE High 172 LAB BUN(LOINC) 6 - 20 mg/dl BUN 9 LAB CREATININE(LOINC) 0.7 - 1.3 mg/dl CREATININE 0.9 LAB AST/SGOT(LOINC) 13 - 39 U/L AST/SGOT 22 LAB ALK PHOS(LOINC) 38 - 126 U/L ALK PHOS Low 33 LAB CALCIUM(LOINC) 8.6 - mg/dl 10.2 CALCIUM 9.1 LAB TOTAL 6.4 - 8.3 g/dl PROTEIN(LOINC) TOTAL PROTEIN 6.8 LAB ALBUMIN(LOINC) 3.4 - 4.8 g/dL ALBUMIN 3.8 LAB GLOBULIN(LOINC) 1.5 - 3.8 G/DL GLOBULIN 3.0 LAB A/G RATIO(LOINC) 0.9 - 1.6 A/G RATIO 1.3 LAB TOTAL BILI(LOINC) 0.0 - 1.5 mg/dl TOTAL BILI 0.4 LAB B/C RATIO(LOINC) 0 - 30 ratio B/C RATIO 10 LAB ALT/SGPT(LOINC) 10 - 40 U/L ALT/SGPT 31 LAB ANION GAP(LOINC) 10 - 20 mmol/L ANION GAP 15 LAB AGE(LOINC) years AGE 61 LAB eGFR(LOINC) 60 - 999 ML/MINUTE eGFR >60 LAB eGFR(AA)(LOINC) 60 - 999 ML/MINUTE eGFR(AA) >60 Result Comment: ACCORDING TO THE NATIONAL KIDNEY DISEASE EDUCATION PROGRAM(NKDE), A NORMAL eGFR IS A VALUE GREATER THAN OR EQUAL TO 60 ML/MIN/1.73 SQ METERS. CHRONIC KIDNEY DISEASE: <60mL/MIN/1.73 SQ METERS KIDNEY FAILURE: <15mL/MIN/1.73 SQ METERS THIS TEST SHOULD ONLY BE USED FOR PATIENTS 18 YEARS OF AGE AND OLDER. Performed By: #### [id number] #### [place] [address] C-REACTIVE PROTEIN Collected: 08/27/2017 Status: F Source: [facility] 7:20 PM [facility] REPOSITORY TYPE CODE TESTS RESULT OUT OF RANGE REFERENCE UNITS LAB CRP(LOINC) 0.00 - 1.00 mg/dl High CRP 8.00 Performed By: #### [id number] #### [place] [address] D-DIMER, QUANTITATIVE Collected: 08/27/2017 Status: F Source: [facility] 7:20 [facility] REPOSITORY TYPE CODE TESTS RESULT OUT OF REFERENCE UNITS RANGE LAB D-DIMER, QUANTITATI VE(LOINC) D-DIMER, QUANTITATIVE Result Comment: QUANT D-DIMER LAB D-DIMER 0 - 230 ng/ml QUANT(LOINC) High D-DIMER QUANT 3403 Performed By: #### [id number] #### [place] [address] Observed: 08/27/2017 Status: F Source: [facility] CULTURE BLOOD 7:20 PM [facility] REPOSITORY CULTURE BLOOD _BLOOD CULTURE_ SET: 1 of 1 24HOUR REPORT NO GROWTH 48HOUR REPORT NO GROWTH 72HOUR REPORT NO GROWTH M I C R O B I O L O G Y R E P O R T FINAL Antimicrobial Susceptibility and Organism Identification Report Specimen Number : [id number] Requested : 08/27/17 Specimen Source : BLOOD Collected : 08/27/17 19:20 [place] [facility] : Emergency Room Received : 08/27/17 19:20 Requesting Physician : HERNANDEZ Patient/Specimen Tests and Comments Specimen Comments FINAL REPORT: No Growth at 5 Days Tech : Source : BLOOD ID # : [id number] FINAL Report Date : / / : Collected : 08/27/17 19:20 09/02/17.CASSANDRA. 09/02/17.CASSANDRA.COMPLETE Performed By: #### [id number] #### [facility],[address] [place] [address] CBC WITH DIFF EAST Collected: 08/20/2017 Status: F Source: [facility] 8:57 AM [facility] REPOSITORY TYPE CODE TESTS RESULT OUT OF REFERENCE UNITS RANGE LAB WBC 4.23-9.07 K/uL WBC Count 3.86 Low LAB RBC 4.63-6.08 M/uL RBC Count 3.68 Low LAB HGB 13.7-17.5 g/dL Hemoglobin 10.5 Low LAB HCT 40.1-51.0 % Hematocrit 32.7 Low LAB MCV 79.0-92.2 fL Mean Cell 88.9 Volume LAB MCH 25.7-32.2 pg Mean Cell 28.5 Hgb LAB MCHC 32.3-36.5 g/dL Mean Cell 32.1 Low Hgb Conc LAB RDW 11.6-14.4 % RBC 15.3 High Distribution LAB PLT 163-337 K/uL Platelet 191 Count LAB MPV 9.4-12.4 fL Mean 10.1 Platelet Volume LAB NRBC 0.0-0.2 /100 WBC NUCLEATED 0.0 RBC LAB DTYPE Electronic DIFFERENTIAL TYPE Differential LAB IGRE % IMMATURE 0.3 GRANS % LAB SEGS % NEUTROPHIL 46.4 SEGMENTED LAB LYM % LYMPHOCYTE 23.1 % LAB MON % MONOCYTE % 19.9 LAB EOS % EOSINOPHIL 8.5 % LAB BASO % BASOPHIL % 1.8 LAB IGABS 0.00-0.03 K/uL IMMATURE <0.04 High GRANS ABSOLUTE LAB SBANS 1.78-5.38 K/uL SEGS + 1.79 Bands,Absolute LAB ALYM 1.32-3.57 K/uL Abs Lymph 0.89 Low LAB AMONO 0.30-0.82 K/uL Abs Christian 0.77 LAB AEOS 0.04-0.54 K/uL Abs Eos 0.33 LAB ABASO 0.01-0.08 K/uL Abs Baso 0.07 Performed By: #### CBCDFE, CHM6E, LIVPE #### [facility] [address] [place] [address] #### CEA, CA199 #### [facility] [address] [place] [address] [address] CHEM 6 - UHE Collected: 08/20/2017 Status: F Source: [facility] 8:57 AM [facility] REPOSITORY TYPE CODE TESTS RESULT OUT OF REFERENCE UNITS RANGE LAB BUN 7-22 mg/dL BUN 14 LAB NA 133-143 mmol/L Sodium 142 LAB K 3.5-5.0 mmol/L Potassium 4.7 LAB CL 98-108 mmol/L Chloride 103 LAB CO2 22-30 mmol/L Carbon High Dioxide 31 LAB CREA 0.70-1.30 mg/dL Creatinine 0.89 LAB GAP 7-17 mmol/L Anion Gap 13 LAB BC BUN/CREA Ratio 16 LAB GFR >60 mL/min/1.73 sqM Est GFR,non >60 [place] LAB GFRA >60 mL/min/1.73 sqM Est GFR, >60 Performed By: #### CINDA, JESUSM6E, LIVPE #### [place] [address] #### JODI, CA199 #### [place] [address] LIVER PROFILE - UHE Collected: 08/20/2017 Status: F Source: [facility] 8:57 AM [facility] REPOSITORY TYPE CODE TESTS RESULT OUT OF REFERENCE UNITS RANGE LAB ALT 10-52 U/L ALT 20 LAB AST 14-40 U/L AST 20 LAB ALB 3.5-5.0 g/dL Albumin 3.5 LAB ALP 32-126 U/L Alkaline Phosphatase 32 LAB BILD <0.3 mg/dL Bilirubin Direct 0.1 LAB BILT <1.5 mg/dL Bilirubin Total 0.5 LAB TP 6.4-8.3 g/dL Low Total Protein 6.0 Performed By: #### CBCDFStacey, CHM6E, LIVPE #### [address] [address] #### CEA, CA199 #### [facility] [address] [place] [address] CEA Collected: 08/20/2017 Status: F Source: [facility] 8:57 AM [facility] REPOSITORY TYPE CODE TESTS RESULT OUT OF RANGE REFERENCE UNITS LAB CEA 0-5.0 ng/mL High CEA 27.8 Performed By: #### CBCDFE, CHM6E, LIVPE #### [address] [address] #### CEA, CA199 #### [id number] [place] [address] CA 19-9 Collected: 08/20/2017 Status: F Source: [facility] 8:57 AM [facility] REPOSITORY TYPE CODE TESTS RESULT OUT OF RANGE REFERENCE UNITS LAB CA199 0-37.00 U/mL High CA 19-9 146.93 Performed By: #### CBCDFE, CHM6E, LIVPE #### [place] [address] #### CEA, CA199 #### [place] [address] CBC WITH DIFF EAST Collected: 08/06/2017 Status: F Source: [facility] 8:40 AM [facility] REPOSITORY TYPE CODE TESTS RESULT OUT OF REFERENCE UNITS RANGE LAB WBC 4.23-9.07 K/uL WBC Count 3.08 Low LAB RBC 4.63-6.08 M/uL RBC Count 3.96 Low LAB HGB 13.7-17.5 g/dL Hemoglobin 11.1 Low LAB HCT 40.1-51.0 % Hematocrit 35.0 Low LAB MCV 79.0-92.2 fL Mean Cell 88.4 Volume LAB MCH 25.7-32.2 pg Mean Cell 28.0 Hgb LAB MCHC 32.3-36.5 g/dL Mean Cell 31.7 Low Hgb Conc LAB RDW 11.6-14.4 % RBC 14.4 Distribution LAB PLT 163-337 K/uL Platelet 246 Count LAB MPV 9.4-12.4 fL Mean 10.6 Platelet Volume LAB NRBC 0.0-0.2 /100 WBC NUCLEATED 0.0 RBC LAB DTYPE Manual DIFFERENTIAL TYPE Differential LAB SEGS % NEUTROPHIL 56.0 SEGMENTED LAB LYM % LYMPHOCYTE 22.0 % LAB MON % MONOCYTE % 17.0 LAB EOS % EOSINOPHIL 1.0 % LAB BASO % BASOPHIL % 2.0 LAB BAND % BAND 2.0 NEUTROPHIL % LAB SBANS 1.78-5.38 K/uL SEGS + 1.79 Bands,Absolute LAB ALYM 1.32-3.57 K/uL Abs Lymph 0.68 Low LAB AMONO 0.30-0.82 K/uL Abs Christian 0.52 LAB AEOS 0.04-0.54 K/uL Abs Eos 0.03 Low LAB ABASO 0.01-0.08 K/uL Abs Baso 0.06 LAB PLTEST PLATELET Automated ESTIMATE platelet count confirmed by manual slide review. LAB RMORPH Red Cell RBC indices Morphology confirmed by manual smear review. Performed By: #### CBCDFE #### [address] [address] NUC PET OTHER Observed: 08/05/2017 Status: F Source: [facility] 10:25 PM [facility] REPOSITORY EXAM: NUC PET OTHER, 08/05/2017 15:40 PM CLINICAL INDICATIONS: 61-year-old man with newly diagnosed metastatic pancreatic cancer. The patient is diabetic and currently taking metformin. The study is requested for initial staging. Initial treatment strategy. COMPARISON: No prior PET/CT studies are available for comparison. CT DOSE: DLP: 1749 mGy x cm kVp: 120 TECHNIQUE: The patient's fasting blood glucose was 105 mg/dl. Approximately 72 minutes following the injection of 11.5 mCi of F-18 FDG, the patient was positioned on the Siemens Biograph mCT TOF< PET/CT-64, [facility] imaging unit. A low resolution non-contrast CT was obtained from the top of the head through the proximal thighs for use in attenuation correction and anatomic correlation. PET emission scans of this anatomic region were acquired shortly thereafter. Axial, sagittal, coronal and maximal intensity projection reconstruction images were presented for interpretation. Oral contrast was administered. FINDINGS: Head/Neck: Normal, intense physiologic uptake is noted in the cerebral cortex mae matter and subcortical nuclei without gross hypermetabolic abnormality. Physiologic FDG uptake is noted in the salivary glands. There is symmetrically increased FDG uptake noted within the palatine tonsillar soft tissues with no definite CT abnormality appreciated. There is no hypermetabolic cervical or supraclavicular lymphadenopathy. Chest: There is a small peripheral nodular density within the peripheral aspect of the right lower lobe which is too small to adequately characterize on PET. Atelectatic changes are also noted in the right lower lobe. There are no definite hypermetabolic pulmonary parenchymal lesions identified. There is a FDG avid left para-aortic lymph node which has a maximal SUV of 12.9. There are some prominent juxtacardiac lymph nodes visualized which have FDG uptake equal to or just slightly greater than blood pool, which are nonspecific. Physiologic FDG uptake is seen in the myocardium. There is a right port catheter in place. Abdomen/Pelvis: There are hypermetabolic and hypodense liver lesions noted. The dominant right hepatic lobe hypermetabolic lesion is maximal SUV of 35.3. There is a hypermetabolic pancreatic tail mass which has a maximal SUV of 20.6. This pancreatic tail mass abuts the left adrenal gland, left kidney and spleen. Direct tumor invasion cannot be entirely excluded. Physiologic FDG uptake is seen throughout the spleen. Heterogeneously increased FDG uptake is noted throughout the bowel which likely relates the patient's recent metformin administration and somewhat limits evaluation for hypermetabolic intraluminal lesions. Colonic diverticulosis is noted. Physiologic FDG excretion is seen in the kidneys, ureters, and urinary bladder. There are no hypermetabolic lesions in the adrenal glands. There were hypermetabolic periaortic and portacaval lymph nodes visualized. A periaortic conglomeration of lymph nodes has a maximal SUV of 17.9. Musculoskeletal: Degenerative changes of the spine are noted. There is heterogeneous FDG uptake throughout the bone marrow spaces of the visualized axial and proximal appendicular skeleton. There is a focus of FDG activity overlying the right 12th rib which has a maximal SUV of 13.7. It is unclear whether this represents a pleural-based metastatic lesion versus an intraosseous rib lesion. No definite CT abnormality is appreciated. No other definite focal hypermetabolic osseous lesions are identified. IMPRESSION: 1. Hypermetabolic pancreatic tail mass which abuts the left adrenal gland, left kidney and spleen. Invasion of this pancreatic tail mass into these adjacent structures cannot be entirely excluded. This likely relates the patient's known primary malignancy. Hypermetabolic hepatic metastases as well as jg metastases within the thorax and abdomen are also noted. Indeterminant hypermetabolic right 12th rib versus underlying pleural metastatic lesion is also noted. 2. Indeterminant right lower lobe nodular lesion which is too small to adequately characterize on PET. Continued close attention on follow-up CT imaging is recommended to exclude any progressive/neoplastic process. *POC GLUCOSE BATTERY Collected: 08/05/2017 Status: F Source: [facility] 1:33 PM [facility] REPOSITORY TYPE CODE TESTS RESULT OUT OF REFERENCE UNITS RANGE LAB GLUP 70-99 mg/dL High Glucose (poc 105 device) Result Comment: No BRAVE per RN: PATIENT TYPE LAB PCSTYP *POC Capillary SAMPLE TYPE Blood CBC WITH DIFF EAST Collected: 07/23/2017 Status: F Source: [facility] 11:15 AM [facility] REPOSITORY TYPE CODE TESTS RESULT OUT OF REFERENCE UNITS RANGE LAB WBC 4.23-9.07 K/uL WBC Count 6.42 LAB RBC 4.63-6.08 M/uL RBC Count 4.13 Low LAB HGB 13.7-17.5 g/dL Hemoglobin 11.6 Low LAB HCT 40.1-51.0 % Hematocrit 36.8 Low LAB MCV 79.0-92.2 fL Mean Cell 89.1 Volume LAB MCH 25.7-32.2 pg Mean Cell 28.1 Hgb LAB MCHC 32.3-36.5 g/dL Mean Cell 31.5 Low Hgb Conc LAB RDW 11.6-14.4 % RBC 13.5 Distribution LAB PLT 163-337 K/uL Platelet 223 Count LAB MPV 9.4-12.4 fL Mean 10.6 Platelet Volume LAB NRBC 0.0-0.2 /100 WBC NUCLEATED 0.0 RBC LAB DTYPE Electronic DIFFERENTIAL TYPE Differential LAB IGRE % IMMATURE 0.3 GRANS % LAB SEGS % NEUTROPHIL 66.9 SEGMENTED LAB LYM % LYMPHOCYTE 15.6 % LAB MON % MONOCYTE % 10.3 LAB EOS % EOSINOPHIL 6.1 % LAB BASO % BASOPHIL % 0.8 LAB IGABS 0.00-0.03 K/uL IMMATURE <0.04 High GRANS ABSOLUTE LAB SBANS 1.78-5.38 K/uL SEGS + 4.30 Bands,Absolute LAB ALYM 1.32-3.57 K/uL Abs Lymph 1.00 Low LAB AMONO 0.30-0.82 K/uL Abs Christian 0.66 LAB AEOS 0.04-0.54 K/uL Abs Eos 0.39 LAB ABASO 0.01-0.08 K/uL Abs Baso 0.05 Performed By: #### CINDA, SINAN6Stacey, LIVPE #### [address] [address] #### CEA, CA199 #### [place] [address] CHEM 6 - UHE Collected: 07/23/2017 Status: F Source: [facility] 11:15 AM [facility] REPOSITORY TYPE CODE TESTS RESULT OUT OF REFERENCE UNITS RANGE LAB BUN 7-22 mg/dL BUN 14 LAB NA 133-143 mmol/L Sodium 138 LAB K 3.5-5.0 mmol/L Potassium 4.5 LAB CL 98-108 mmol/L Chloride 99 LAB CO2 22-30 mmol/L Carbon Dioxide 30 LAB CREA 0.70-1.30 mg/dL Creatinine 0.86 LAB GAP 7-17 mmol/L Anion Gap 14 LAB BC BUN/CREA Ratio 16 LAB GFR >60 mL/min/1.73 sqM Est GFR,non >60 [place] LAB GFRA >60 mL/min/1.73 sqM Est GFR, >60 Performed By: #### CINDA, SINAN6Stacey, LIVALICIA #### [place] [address] #### CEA, CA199 #### [place] [address] LIVER PROFILE - UHE Collected: 07/23/2017 Status: F Source: [facility] 11:15 AM [facility] REPOSITORY TYPE CODE TESTS RESULT OUT OF REFERENCE UNITS RANGE LAB ALT 10-52 U/L ALT 18 LAB AST 14-40 U/L AST 25 LAB ALB 3.5-5.0 g/dL Albumin 3.7 LAB ALP 32-126 U/L Alkaline Phosphatase 65 LAB BILD <0.3 mg/dL Bilirubin Direct 0.1 LAB BILT <1.5 mg/dL Bilirubin Total 0.5 LAB TP 6.4-8.3 g/dL Low Total Protein 6.2 Performed By: #### CBCDFE, CHM6E, LIVPE #### [address] [address] #### CEA, CA199 #### [facility] [address] [place] [address] [facility] [address] [place] [address] CEA Collected: 07/23/2017 Status: F Source: [facility] 11:15 AM [facility] REPOSITORY TYPE CODE TESTS RESULT OUT OF RANGE REFERENCE UNITS LAB CEA 0-5.0 ng/mL High CEA 56.0 Performed By: #### CBCDFE, CHM6E, LIVPE #### [address] [address] #### CEA, CA199 #### [facility] [id number] [place] [address] [place] [address] CA 19-9 Collected: 07/23/2017 Status: F Source: [facility] 11:15 AM [facility] REPOSITORY TYPE CODE TESTS RESULT OUT OF RANGE REFERENCE UNITS LAB CA199 0-37.00 U/mL High CA 19-9 143.28 Performed By: #### CBCDFE, CHM6E, LIVPE #### [address] [address] #### CEA, CA199 #### [facility] [address] [place] [address] [address] MEDIPORT PLACEMENT Observed: 07/22/2017 Status: F Source: [facility] 3:28 PM [facility] REPOSITORY EXAM: IR MEDIPORT PLACEMENT, 07/22/2017 15:23 PM CLINICAL INDICATIONS: C25.9:Malignant neoplasm of pancreas, unspecified 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 MEDICATIONS: 2:31 PM 07/22/17 fentaNYL (SUBLIMAZE) injection 300 mcg 50 mcg Route: Intravenous; 2:31 PM 07/22/17 midazolam (VERSED) injection 10 mg 1 mg Route: Intravenous; 2:51 PM 07/22/17 midazolam (VERSED) injection 10 mg 1 mg Route: Intravenous; 2:51 PM 07/22/17 fentaNYL (SUBLIMAZE) injection 300 mcg 50 mcg Route: Intravenous; 2:55 PM 07/22/17 lidocaine 2 % injection 400 mg 5 mL Route: Other Site: Other ; 2:55 PM 07/22/17 ceFAZolin (ANCEF) injection 1 g 1 g Route: Irrigation Site: Other ; 3:10 PM 07/22/17 sodium chloride (PF) 0.9% injection 10-20 mL 20 mL Route: Intravenous Site: Port ; 3:11 PM 07/22/17 heparin 100 UNIT/ML flush injection 500 Units 10 mL Route: Intravenous ; Total Fluoro Time: 0.4 minutes Operators: Brenton Gonzalez MD Consent: Following discussion of the risks, benefits and alternatives of the procedure, written informed consent was obtained. Sedation: Moderate sedation was provided to the patient during the procedure using IV fentanyl and Versed. COMPARISON: No prior studies available for comparison. TIME OUT: Prior to the procedure a time out was performed in the presence of the patient and all personnel involved in this case. The patient identity, procedure type, procedure side/site, and allergies were verified. ......................................................... TECHNIQUE: Position: The patient was transferred to the IR laboratory and was positioned supine on the procedural table. Venous Entry: Real-time ultrasound examination of the neck demonstrated a patent right internal jugular vein, which was documented. The right internal jugular vein was chosen for placement of the catheter. The neck and anterior chest were prepped and draped utilizing maximum sterile barrier technique. This consisted of cap, mask, hand hygiene, sterile gown and gloves, 2% Chlorhexidine solution for cutaneous antisepsis and occlusive sterile draping of the field. Procedure: Using direct ultrasound guidance, access was gained into the vein. Images were documented in the chart. A subcutaneous pocket was created over the anterior chest wall. A tunnel was created between the pocket and the venotomy site. The catheter was carried through the tunnel. It was clamped using two hemostats. It was then inserted under fluoroscopy. The tip of the catheter was positioned in the right atrium. The catheter was then cut to appropriate length and subsequently attached to the port. The port was placed within the pocket in standard fashion. The pocket was closed in two layers with the most superficial layer being a subcuticular running suture using absorbable suture. The venotomy site was closed using absorbable suture. The port was aspirated and flushed successfully. It was then loaded with the appropriate dwelling solution. A sterile, occlusive dressing was placed on the skin over the catheter entry site. Dermabond adhesive was applied to the suture lines and the venotomy site. FINDINGS: The final position of the tip of the catheter is in the right atrium. IMPRESSION: Successful placement of a Bard dual lumen power port. Flowsheet Row Most Recent Value Fluoro time: 0.4 minutes Rad Dose: 6 mGy IR Meds Event Details User 2:22 PM 07/22/17 Timeout: Sign-in Verified by Desirae Morrison RN at 07/22/2017 2:23 PM RK 2:31 PM 07/22/17 fentaNYL (SUBLIMAZE) injection 300 mcg 50 mcg Given Rate: 0 Route: Intravenous RK 2:31 PM 07/22/17 midazolam (VERSED) injection 10 mg 1 mg Given Rate: 0 Route: Intravenous RK 2:49 PM 07/22/17 Timeout: TimeOut Verified by Desirae Morrison RN at 07/22/2017 2:51 PM RK 2:51 PM 07/22/17 midazolam (VERSED) injection 10 mg 1 mg Given Rate: 0 Route: Intravenous RK 2:51 PM 07/22/17 fentaNYL (SUBLIMAZE) injection 300 mcg 50 mcg Given Rate: 0 Route: Intravenous RK 2:55 PM 07/22/17 lidocaine 2 % injection 400 mg 5 mL Given Rate: 0 Route: Other Site: Other Comment: right neck and chest area or port placement as local anesthetic JA 2:55 PM 07/22/17 ceFAZolin (ANCEF) injection 1 g 1 g Given Rate: 0 Route: Irrigation Site: Other Comment: right chest subcutaneous pocket for port JA 3:10 PM 07/22/17 sodium chloride (PF) 0.9% injection 10-20 mL 20 mL Given Rate: 0 Route: Intravenous Site: Port Comment: 10 ml to flush each side of port MT 3:10 PM 07/22/17 Timeout: Sign-out Verified by Desirae Morrison RN at 07/22/2017 3:13 PM RK 3:11 PM 07/22/17 heparin 100 UNIT/ML flush injection 500 Units 10 mL Given Rate: 0 Route: Intravenous Comment: 500 units/ 5 ml instilled to each side of port MT IR Physician Event Details User 2:21 PM 07/22/17 Brenton Gonzalez MD - In Role: Primary Service: Interventional Radiology (Panel 1) 2:22 PM 07/22/17 Timeout: Sign-in Verified by Desirae Morrison RN at 07/22/2017 2:23 PM RK 2:49 PM 07/22/17 Timeout: TimeOut Verified by Desirae Morrison RN at 07/22/2017 2:51 PM RK 3:10 PM 07/22/17 Brenton Gonzalez MD - Out Role: Primary Service: Interventional Radiology (Panel 1) 3:10 PM 07/22/17 Timeout: Sign-out Verified by Desirae Morrison RN at 07/22/2017 3:13 PM RK *POC GLUCOSE BATTERY Collected: 07/22/2017 Status: F Source: [facility] 1:57 PM [facility] REPOSITORY TYPE CODE TESTS RESULT OUT OF REFERENCE UNITS RANGE LAB GLUP 70-99 mg/dL High Glucose (poc 130 device) Result Comment: No BRAVE per RN: PATIENT TYPE LAB PCSTYP *POC SAMPLE TYPE Venous EMERGENCY REPORT Observed: 07/15/2017 Status: F Source: [facility] 5:45 AM [facility] EMERGENCY DEPARTMENT REPORT NAME NUMBER SEX AGE ADMIT DISC TYPE MED.RECORD# PACO MERLE [id number] M 61 07/04/17 E.R. [id number] ROOM:ER-A DATE OF :1955 PHYSICIAN NO.:[id number] PHYSICIAN NAME:DR. EDILMA WASHINGTON PHYSICIAN:SHELTON Gastelum FAMILY PHYSICIAN: SHELTON Gastelum Time seen was 6:30 a.m. HISTORY OF PRESENT ILLNESS: This is a 61-year-old male complaining of epigastric region abdominal pain for the past 1 month. The patient has been gradually getting worse, especially over the last 2 days the pain has been very severe. Last night, he rated the pain as a 9 on a severity scale of 1 to 10. He described the pain as throbbing. He states that the pain is worse in the evenings, especially if he lies flat. If he is on an empty stomach, the pain just throbs. If he eats something, the pain does seem to get better. If he eats something spicy, the pain gets worse. He has complained of a little bit of nausea every now and then. He denies any vomiting. He states he is a little short of breath, especially with climbing stairs, but that is not new. PAST MEDICAL HISTORY: He has a past medical history of insulin- dependent diabetes, hypertension, and anxiety. He states he had high cholesterol in the past, but not now and is not presently on any cholesterol medications. He did have a heart catheterization somewhere between 5 and 10 years ago at [facility], which he states was okay. PAST SURGICAL HISTORY: He denies any past surgeries. MEDICATIONS: Current medications include metformin, bupropion, insulin, and he thinks he is on lisinopril as well for his hypertension. 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 He has been eating a lot of yogurt. He states he has been dieting and has lost purposely about 10 pounds over the past 2 weeks. He is not a smoker. He denies the use of alcohol and lives with his . REVIEW OF SYSTEMS: He denies any fevers, sweats, or chills. Denies any chest pain, shortness of breath, cough, sputum, wheezing, diarrhea, constipation, melena, hematochezia, fevers, sweats, or chills, headache, numbness, unsteady gait, weakness, neck or back pain; although, he does admit that the abdominal pain at times does radiate through to his back. Further review of systems is negative. PHYSICAL EXAMINATION: The patient is alert and oriented x3. He does appear to be in some mild- to-moderate distress secondary to abdominal pain, but he is pleasant and cooperative, talkative, and makes eye contact. HEENT: Head appears atraumatic. Pupils are equal and reactive to light. Red reflex intact bilaterally. Extraocular muscles are intact. No conjunctival injections. Nose exhibits no rhinorrhea or epistaxis. Mouth: Mucous membranes are mildly dry. No pharyngeal erythema. Uvula is midline and elevates. Neck is supple. Trachea is midline. No JVD or lymphadenopathy. No posterior cervical tenderness. No nuchal rigidity. Lungs: Clear to auscultation in all lung cano with some mildly diminished breath sounds bibasilar, but no wheezing or crackles. No anterior chest wall tenderness. CV: Heart rate and rhythm are regular. No murmur noted. Heart sounds are somewhat distant. Abdomen is soft, morbidly obese with some mild epigastric tenderness on palpation, some questionable right upper quadrant tenderness on palpation as well. Bowel sounds are present x4 quadrants and normoactive. No involuntary guarding, some voluntary guarding was noted in the EMERGENCY ROOM REPORT PACO MERLE [address] [place] [address] EMERGENCY DEPARTMENT REPORT NAME NUMBER SEX AGE ADMIT DISC TYPE MED.RECORD# PACO HAWK [id number] M 61 07/04/17 E.R. [id number] ROOM:ER-A DATE OF :1955 PHYSICIAN NO.:[id number] PHYSICIAN NAME:DR. EDILMA WASHINGTON PHYSICIAN:SHELTON Gastelum FAMILY PHYSICIAN: SHELTON Gastelum epigastrium with palpation. No abdominal distention. No rebound. Back exhibits no midline or paraspinal region tenderness. No increased paraspinal muscle rigidity. Negative Sacha sign. Extremities: No edema or cyanosis. Peripheral pulses are intact. No motor or sensory deficits are noted. Hand bleacher lard are strong and symmetric. Skin is warm and dry. No diaphoresis or rash. The patient is cooperative with a normal affect. Neurologic examination shows the patient to be alert and oriented x4. No motor or sensory deficits are noted. Normal speech pattern. DIAGNOSTIC DATA: EKG shows a sinus tachycardia at a rate of 103 beats per minute. No acute ST segment changes are noted. [place] is approximately 60 degrees. EMERGENCY DEPARTMENT COURSE AND TREATMENT/PLAN/DISPOSITION: Presently, in light of the fact that the patient's pain has been going on for a month and is getting worse, I am going to do a CAT scan of the abdomen and pelvis with IV contrast. We do have some blood work pending including a CBC, CMP, urinalysis, and lipase, and then we will reevaluate. D: Kirill Cortez DO TD: 07:21 JOB #: [id number] Transcribed by: am 07/04/2017 14:22 Electronically signed by: E-Sign: Dr. Kirill Cortez D.O. 07/15/17 05:44 EMERGENCY ROOM REPORT PACO CARINE [address] [place] [address] EMERGENCY DEPARTMENT REPORT NAME NUMBER SEX AGE ADMIT DISC TYPE MED.RECORD# PACO HAWK [id number] M 61 07/04/17 E.RRamos [id number] ROOM:ER-A DATE OF :1955 PHYSICIAN NO.:[id number] PHYSICIAN NAME:DR. EDILMA WASHINGTON PHYSICIAN:SHELTON Gastelum FAMILY PHYSICIAN: SHELTON Gastelum EMERGENCY ROOM REPORT PACO HAWK 3 EMERGENCY REPORT Observed: 07/15/2017 Status: F Source: [facility] 5:44 AM [facility] EMERGENCY ROOM NAME NUMBER SEX AGE ADMIT DISC TYPE MED. RECORD# PACO, [id number] M CARINE Valdez [id number] ROOM: DATE OF : 1955 PHYSICIAN NO: [id number] PHYSICIAN: EDILMA WASHINGTON, ADDENDUM EMERGENCY DEPARTMENT COURSE AND TREATMENT: I did discuss the case with the [facility]. They presently do not have a bed. They think that they will probably have a bed later this afternoon or possibly this evening. I discussed this with Dr. Zuleta. We considered placing the patient in observation here at this facility, but upon further consideration Dr. Zuleta felt that was not appropriate. In talking with the patient here and advising him that we are waiting on a bed from the [facility], we still feel this is the best route to go because he will probably go home and have more abdominal pain and be right back in the Emergency Room if we do not address these pancreatic masses. He did verbalize understanding of this, and his did as well. Presently, at this point, we will continue to wait for a bed assignment from [facility] at [facility]. D: Kirill Cortez DO TD: 13:25 JOB #: [id number] Transcribed by: richelle 07/05/2017 07:39 Electronically signed by: E-Sign: Dr. Kirill Cortez D.O. 07/15/17 05:44 CARINE ANTONIO Page 1 of 1 EMERGENCY REPORT Observed: 07/15/2017 Status: F [facility] EMERGENCY DEPARTMENT REPORT NAME NUMBER SEX AGE ADMIT DISC TYPE MED.RECORD# PACOHUMA HAWK [id number] M 61 07/04/17 E.R. [id number] ROOM:ER-A DATE OF :1955 PHYSICIAN NO.:[id number] PHYSICIAN NAME:DR. EDILMA WASHINGTON PHYSICIAN:SHELTON Gastelum FAMILY PHYSICIAN: SHELTON Gastelum ADDENDUM: DIAGNOSTIC DATA: Laboratory work showed a troponin of 0.01. Sodium 136, potassium 4.9, chloride 98, Co2 27.3, glucose 201, BUN 12, creatinine 0.9. Liver functions came back within normal limits. Anion gap was 16, which was normal. Repeat troponin was 0.01. Lipase was 25. White count was 8.4, hemoglobin 12.4, hematocrit 37.1, platelet count 242,000. The CAT scan of the abdomen and pelvis showed multiple hypoattenuating foci present in the liver suspicious for metastatic disease. There was a right hepatic subscapular fluid collection. Also a 5.9 cm lobulated mass was present in the left upper abdomen and may be pancreatic in origin. Fat planes between the left kidney and spleen however are obscured. 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 There is a 3.5 cm probable lymph node mass anterior to the aorta at the renal level. EKG at 6:56 showed a sinus tachycardia at 103 beats per minute. EMERGENCY DEPARTMENT COURSE AND TREATMENT: I discussed these findings with both the patient and his family, as well as his primary care physician, Dr. Zuleta. DIAGNOSIS: Pancreatic mass with liver metastasis. PLAN/DISPOSITION: Dr. Zuleta felt that the patient needed to have these biopsied, and since we cannot do that here recommended transfer to [facility]. I did call [facility], but they are presently full and have no beds. We also discussed the case with the [facility] at [facility] in [place], and presently their bed situation is tight as well, but the transfer line was going to check on their bed availability and then get back to me. They did tell me we might have to admit the patient here for 24 hours before they get a bed, but I am still waiting to hear back on that and then we will decide. D: Kirill Crotez DO TD: 12:35 JOB #: [id number] Transcribed by: am 07/04/2017 18:46 Electronically signed by: E-Sign: Dr. Kirill Cortez D.O. 07/15/17 05:43 EMERGENCY ROOM REPORT PACO HAWK 1 [facility] EMERGENCY DEPARTMENT REPORT NAME NUMBER SEX AGE ADMIT DISC TYPE MED.RECORD# PACO HAWK [id number] M 61 07/04/17 E.R. [id number] ROOM:ER-A DATE OF :1955 PHYSICIAN NO.:[id number] PHYSICIAN NAME:DR. EDILMA WASHINGTON PHYSICIAN:SHELTON Gastelum FAMILY PHYSICIAN: SHELTON Gastelum EMERGENCY ROOM REPORT PACO HAWK 2 CT CHEST WITH Observed: 07/11/2017 Status: F Source: [facility] 10:03 PM [facility] REPOSITORY EXAM: CT CHEST WITH CONTRAST, 07/05/2017 15:53 PM COMPARISON: No prior chest CT is available for comparison at this time. CLINICAL INDICATIONS: Pancreatic Mass staging; RELEVANT CLINICAL HISTORY: TECHNIQUE: Following the administration of intravenous contrast, axial CT images were reconstructed from the volumetric data set, from the thoracic inlet through the adrenal glands. Coronal MIP images were also reconstructed. CONTRAST: Please see chart for additional information.; This patient underwent a CT examination using radiation exposure as low as reasonably achievable. CTDIvol and DLP radiation exposure values for each series were: Exposure: 1; Series: 2; Anatomy: Chest; Phantom: 32 cm; CTDIvol: 11; DLP: [address] are the volume Computed Tomography (CT) Dose Index (CTDIvol) and the Dose Length Product (DLP), and are measured in units of mGy and mGy-cm, respectively. These indicators are not patient dose, but values generated from the CT scanner acquisition factors and may substantially underestimate or overestimate the absorbed dose based on patient size and other factors. FINDINGS: This examination is presented to me on July 11, 2017 for interpretation. Lungs and Pleura: A few bilateral scattered indeterminate pulmonary nodules such as right lower lobe 0.9 cm subpleural nodule (image 39); and left lower lobe 0.5 cm nodule (image 50). Mild bilateral dependent atelectasis and mild right posterior basilar subsegmental atelectasis and/or scarring. No consolidation or pleural effusion. Tracheobronchial tree: Trachea and central bronchi are patent. Mediastinum/Celia: Multiple small/borderline enlarged nonspecific distal periesophageal and right pericardiac/juxtaphrenic lymph nodes, such as right pericardiac/juxtaphrenic 1.3 x 0.8 cm lymph node (image 41) and left distal periesophageal 1.3 x 0.8 cm lymph node (image 47). No hilar lymphadenopathy Axilla and Supraclavicular Region: No axillary or supraclavicular adenopathy. Enlarged thyroid gland is unremarkable. Cardiovascular: The cardiac chambers and pericardium are within normal limits. Mild aortic/branch vessel and coronary artery calcifications. Central pulmonary arteries are grossly unremarkable but suboptimally evaluated.. Upper Abdomen: 6.9 x 6.1 cm pancreatic tail mass concerning for malignancy, which abuts the anterior aspect of the left kidney and extends into the splenic hilum (image 65). Pancreas is otherwise atrophic. Multiple hypodense hepatic masses concerning for metastatic disease such as right hepatic lobe 9.6 x 5.6 cm mass with small amount of adjacent localized ascites/fluid (image 55) as well as trace/minimal ascites near the inferior liver tip. 2.9 x 2.4 cm left adrenal nodule could be metastatic (image 65). Periaortic lymphadenopathy concerning for metastatic disease such as anterior to the aorta measuring 3.5 x 2.0 cm (image 72). Small amount of left hepatic lobe air/gas presumably related to recent biopsy. Bones and Soft Tissue: No suspicious osseous lesion. Degenerative changes in the spine. IMPRESSION: 1. A few scattered indeterminate bilateral pulmonary nodules are suspicious for metastatic disease. Recommend follow-up chest CT to evaluate for stability and an interval of 2-3 months is suggested. 2. Multiple nonspecific small and borderline enlarged distal periesophageal and right pericardiac/juxtaphrenic lymph nodes. Early metastatic disease is not excluded. Recommend attention to these areas on follow- up exam. 3. Pancreatic tail mass suspicious for pancreatic malignancy. Multiple hepatic masses and upper abdominal lymphadenopathy is concerning for metastatic disease. Indeterminate left adrenal nodule could be metastatic. Correlate with abdominal/pelvic CT exam findings. 4. Small focus of left hepatic lobe air/gas presumably related to recent biopsy. *POC GLUCOSE BATTERY Collected: 07/06/2017 Status: F Source: [facility] 7:41 AM [facility] REPOSITORY TYPE CODE TESTS RESULT OUT OF REFERENCE UNITS RANGE LAB GLUP 70-99 mg/dL High Glucose (poc 191 device) Result Comment: No BRAVE per RN: PATIENT TYPE LAB PCSTYP *POC Capillary SAMPLE TYPE Blood CBC,PLATELET,DIFFERENTIAL - CCL Collected: Status: F Source: [facility] 07/06/2017 4:09 AM [facility] REPOSITORY TYPE CODE TESTS RESULT OUT OF REFERENCE UNITS RANGE LAB WBC 4.23-9.07 K/uL WBC Count 8.42 LAB RBC 4.63-6.08 M/uL RBC Count 4.05 Low LAB HGB 13.7-17.5 g/dL Hemoglobin 11.5 Low LAB HCT 40.1-51.0 % Hematocrit 36.9 Low LAB MCV 79.0-92.2 fL Mean Cell 91.1 Volume LAB MCH 25.7-32.2 pg Mean Cell 28.4 Hgb LAB MCHC 32.3-36.5 g/dL Mean Cell 31.2 Low Hgb Conc LAB RDW 11.6-14.4 % RBC 13.0 Distribution LAB PLT 163-337 K/uL Platelet 250 Count LAB MPV 9.4-12.4 fL Mean 10.7 Platelet Volume LAB NRBC 0.0-0.2 /100 WBC NUCLEATED 0.0 RBC LAB DTYPE Electronic DIFFERENTIAL TYPE Differential LAB IGRE % IMMATURE 0.5 GRANS % LAB SEGS % NEUTROPHIL 70.7 SEGMENTED LAB LYM % LYMPHOCYTE 11.2 % LAB MON % MONOCYTE % 11.4 LAB EOS % EOSINOPHIL 5.1 % LAB BASO % BASOPHIL % 1.1 LAB IGABS 0.00-0.03 K/uL IMMATURE 0.04 High GRANS ABSOLUTE LAB SBANS 1.78-5.38 K/uL SEGS + 5.96 High Bands,Absolute LAB ALYM 1.32-3.57 K/uL Abs Lymph 0.94 Low LAB AMONO 0.30-0.82 K/uL Abs Christian 0.96 High LAB AEOS 0.04-0.54 K/uL Abs Eos 0.43 LAB ABASO 0.01-0.08 K/uL Abs Baso 0.09 High Performed By: #### CBCDFC, CHM7 #### [facility] [address] [place] [address] [facility] [address] [place] [address] CHEM 7 Collected: 07/06/2017 Status: F Source: [facility] 4:09 AM [facility] REPOSITORY TYPE CODE TESTS RESULT OUT OF REFERENCE UNITS RANGE LAB BUN 7-22 mg/dL BUN 13 LAB NA 133-143 mmol/L Sodium 137 LAB K 3.5-5.0 mmol/L Potassium 4.7 LAB CL 98-108 mmol/L Chloride 98 LAB CO2 22-30 mmol/L Carbon Dioxide 24 LAB GLUC 70-99 mg/dL Glucose High 235 LAB CREA 0.70-1.30 mg/dL Creatinine 1.00 LAB GAP 7-17 mmol/L Anion High Gap 20 LAB BC BUN/CREA Ratio 13 LAB OSMC 278-305 mOsm/kg Osmolality 297 (Calc) LAB GFR >60 mL/min/1.73 sqM Est GFR,non >60 [place] LAB GFRA >60 mL/min/1.73 sqM Est GFR, >60 Performed By: #### CBCDFC, CHM7 #### [facility] [address] [address] US HEPATIC MASS Observed: 07/05/2017 Status: F Source: [facility] BIOPSY 3:43 PM [facility] REPOSITORY EXAM: [facility] US HEPATIC MASS BIOPSY, 07/05/2017 12:11 PM CLINICAL INDICATIONS: Pancreatic Mass, multiple liver lesions COMPARISON: CT abdomen pelvis July 04, 2017 OPERATORS: Boom Holm M.D. PROCEDURE/TECHNIQUE: Consent: Written, informed consent was obtained after explaining the procedure to the patient, including benefits and risks, and answering the patient's questions. Moderate Sedation: Intravenous Fentanyl and Versed were administered during the procedure. Continuous physiologic monitoring of vital signs for moderate procedural sedation was performed by the radiology nursing staff for greater than 30 minutes. Position: The patient was placed in the supine position. Real time US guidance was used to locate the liver and the skin savage was placed. Preparation: Time out was performed. The patient was then prepped and draped in sterile fashion. Local anesthesia was provided using 2% Lidocaine. Procedure: An [id number] Mermaid biopsy gun was placed into the skin savage and into the liver lesion and multiple core samples were taken. The specimens were placed in formalin solution and sent to pathology for analysis. Gelfoam was used to achieve hemostasis. Post-procedure: There were no immediate complications. The patient tolerated the procedure well. IMPRESSION: Successful US guided biopsy of a liver lesion. Boom Holm III, MD was in the room and participated during all ingram portions of this procedure. ICAL PATHOLOGY Observed: 07/05/2017 Status: F Source: [facility] 12:20 PM [facility] REPOSITORY Surgical Pathology Report Patient Name: CARINE ANTONIO [facility]. Rec #: [id number] Submitting Physician: ELVIRA PACHECO --- Clinical History --- Pancreatic mass and liver lesions. ADDENDA: Addendum added: 04/08/2018 ---Final Pathologic Diagnosis--- A. 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 Note: The history of a pancreatic mass and liver lesions is noted. Stains show that the neoplastic cells are positive for CK7, CK20 (rare cells), CDX2 and mucicarmine. The histologic and immunohistochemical findings in the context of the clinical and radiological history are most consistent with metastasis from a pancreatic primary but primary biliary carcinoma as well as metastasis from other sites cannot be definitively excluded. Clinical and radiological correlation is recommended. All controls show appropriate reactivity. All immunohistochemistry, in situ hybridization, and histochemical tests were developed by and are performed at the [facility], [address] [place] [address]. All tests reported here, except those addressing HER2 overexpression as a predictive marker, have not been cleared by or approved by the [place] Food and Drug Administration (FDA). The laboratory is regulated under CLIA as qualified to perform high-complexity testing. The tests are used for clinical purposes. They should not be regarded as investigational or for research. [email or web address]/10/2017 Electronically Signed By Sravanthi Hanks MD 07/10/2017 15:00:34 Professional Interpretation performed at location: ---Addendum Report--- Addendum Date Ordered: 04/08/2018 Status: Signed Out Date Complete: 04/08/2018 Date Reported: 04/08/2018 Text: {Not Entered} On April 04, 2018, Dr. No Waller submitted an order for additional stains/tests [facility] CDx Molecular Profile and [facility] PD-L1 and the tissue block(s) was retrieved from archive storage and submitted to the [facility] clinical histology laboratory for additional processing and staining. [place] [address]. The results will be available in IS. Sravanthi Hanks MD ---SPECIMEN(S) RECEIVED:--- SBX A: Liver, neoplastic, BX ---GROSS DESCRIPTION:--- The specimen is received in one properly labeled container with the patient's name and accession number. A. The specimen is designated liver lesion and consists of four cores of hernandez-white soft tissue that range in length from 0.6 to 1.9 cm and an average diameter of 0.1 cm. TE 2 Lab Use Only: JobID [id number] Gross description by: Tabitha Koroma Performed By: #### SURGP #### [facility] [address] [place] [address] [place] [address] *POC GLUCOSE BATTERY Collected: 07/05/2017 Status: F Source: [facility] 11:19 AM [facility] REPOSITORY TYPE CODE TESTS RESULT OUT OF REFERENCE UNITS RANGE LAB GLUP 70-99 mg/dL High Glucose (poc 129 device) Result Comment: No BRAVE per RN: PATIENT TYPE LAB PCSTYP *POC Capillary SAMPLE TYPE Blood *POC GLUCOSE BATTERY Collected: 07/05/2017 Status: F Source: [facility] 9:58 AM [facility] REPOSITORY TYPE CODE TESTS RESULT OUT OF REFERENCE UNITS RANGE LAB GLUP 70-99 mg/dL High Glucose (poc 141 device) Result Comment: No BRAVE per RN: PATIENT TYPE LAB PCSTYP *POC Capillary SAMPLE TYPE Blood VITAMIN B12 Collected: 07/05/2017 Status: X Source: [facility] 8:17 AM [facility] REPOSITORY TYPE CODE TESTS RESULT OUT OF REFERENCE UNITS RANGE LAB B12B Vitamin B12 This result has been cancelled. Performed By: #### B12B, FOLSB #### [facility] (DEFAULT) [address] [address] FOLATE, SERUM Collected: 07/05/2017 Status: X Source: [facility] 8:17 AM [facility] REPOSITORY TYPE CODE TESTS RESULT OUT OF REFERENCE UNITS RANGE LAB FOLSB Folate, This result Serum has been cancelled. Performed By: #### B12B, FOLSB #### [facility] (DEFAULT) [address] [address] RETICULOCYTES Collected: 07/05/2017 Status: F Source: [facility] 7:19 AM [facility] REPOSITORY TYPE CODE TESTS RESULT OUT OF REFERENCE UNITS RANGE LAB OBS 0.51-1.81 % *Retic Count 1.64 LAB TYRON 0.026-0.095 M/uL Retic Absolute 0.0712 Performed By: #### RETIC #### [facility] [id number] [place] [address] [address] IRON*TIBC (TRANSFERRIN) Collected: 07/05/2017 Status: F Source: [facility] 6:28 AM [facility] REPOSITORY TYPE CODE TESTS RESULT OUT OF REFERENCE UNITS RANGE LAB IRON 40-174 mcg/dL Low Iron 34 LAB TIBC 298-596 mcg/dL Total Iron Binding Capacity 381 LAB IRONS 20-55 % Low *Iron*Saturation 9 LAB COPPOLA 200-400 mg/dL Transferrin 256 Performed By: #### IRBC, CHM7 #### [facility] [id number] [place] [address] [address] CHEM 7 Collected: 07/05/2017 Status: F Source: [facility] 6:28 AM [facility] REPOSITORY TYPE CODE TESTS RESULT OUT OF REFERENCE UNITS RANGE LAB BUN 7-22 mg/dL BUN 16 LAB NA 133-143 mmol/L Sodium 139 LAB K 3.5-5.0 mmol/L Potassium 4.7 LAB CL 98-108 mmol/L Chloride 100 LAB CO2 22-30 mmol/L Carbon Dioxide 25 LAB GLUC 70-99 mg/dL Glucose High 150 LAB CREA 0.70-1.30 mg/dL Creatinine 1.12 LAB GAP 7-17 mmol/L Anion High Gap 19 LAB BC BUN/CREA Ratio 14 LAB OSMC 278-305 mOsm/kg Osmolality 297 (Calc) LAB GFR >60 mL/min/1.73 sqM Est GFR,non >60 [place] LAB GFRA >60 mL/min/1.73 sqM Est GFR, >60 Performed By: #### IRBC, CHM7 #### [facility] [address] [place] [address] FERRITIN Collected: 07/05/2017 Status: F Source: [facility] 6:28 [facility] REPOSITORY TYPE CODE TESTS RESULT OUT OF RANGE REFERENCE UNITS LAB FERI 22-322 ng/mL *Ferritin 293 Performed By: #### FERIB, B12B #### [facility] [address] [place] [address] VITAMIN B12 Collected: 07/05/2017 Status: F Source: [facility] 6:28 [facility] REPOSITORY TYPE CODE TESTS RESULT OUT OF RANGE REFERENCE UNITS LAB FOLS >5.38 ng/mL 14.07 *Folate*Seru m Performed By: #### FERIB, B12B #### [facility] [address] [place] [address] CEA Collected: 07/05/2017 Status: F Source: [facility] 3:32 AM [facility] REPOSITORY TYPE CODE TESTS RESULT OUT OF RANGE REFERENCE UNITS LAB CEA 0-5.0 ng/mL High CEA 40.2 Performed By: #### CEA, CA199 #### [facility] [address] [place] [address] CA 19-9 Collected: 07/05/2017 Status: F Source: [facility] 3:32 [facility] REPOSITORY TYPE CODE TESTS RESULT OUT OF RANGE REFERENCE UNITS LAB CA199 0-37.00 U/mL High CA 19-9 170.15 Performed By: #### CEA, CA199 #### [facility] [address] [place] [address] [facility] [address] [place] [address] Observed: 07/05/2017 Status: F Source: [facility] TYPE AND CROSS 1:14 AM [facility] REPOSITORY ABO/RH(D): A NEGATIVE ANTIBODY SCREEN: NEGATIVE Performed By: #### XM #### [facility] [address] [place] [address] [facility] [address] [place], [place] [address] CBC,PLATELET,DIFFERENTIAL - CCL Collected: Status: F Source: [facility] 07/05/2017 12:55 [facility] REPOSITORY TYPE CODE TESTS RESULT OUT OF REFERENCE UNITS RANGE LAB WBC 4.23-9.07 K/uL WBC Count 8.10 LAB RBC 4.63-6.08 M/uL RBC Count 4.12 Low LAB HGB 13.7-17.5 g/dL Hemoglobin 11.9 Low LAB HCT 40.1-51.0 % Hematocrit 36.6 Low LAB MCV 79.0-92.2 fL Mean Cell 88.8 Volume LAB MCH 25.7-32.2 pg Mean Cell 28.9 Hgb LAB MCHC 32.3-36.5 g/dL Mean Cell 32.5 Hgb Conc LAB RDW 11.6-14.4 % RBC 13.1 Distribution LAB PLT 163-337 K/uL Platelet 269 Count LAB MPV 9.4-12.4 fL Mean 10.8 Platelet Volume LAB NRBC 0.0-0.2 /100 WBC NUCLEATED 0.0 RBC LAB DTYPE Electronic DIFFERENTIAL TYPE Differential LAB IGRE % IMMATURE 0.2 GRANS % LAB SEGS % NEUTROPHIL 64.5 SEGMENTED LAB LYM % LYMPHOCYTE 17.0 % LAB MON % MONOCYTE % 11.4 LAB EOS % EOSINOPHIL 5.9 % LAB BASO % BASOPHIL % 1.0 LAB IGABS 0.00-0.03 K/uL IMMATURE 0.02 GRANS ABSOLUTE LAB SBANS 1.78-5.38 K/uL SEGS + 5.22 Bands,Absolute LAB ALYM 1.32-3.57 K/uL Abs Lymph 1.38 LAB AMONO 0.30-0.82 K/uL Abs Christian 0.92 High LAB AEOS 0.04-0.54 K/uL Abs Eos 0.48 LAB ABASO 0.01-0.08 K/uL Abs Baso 0.08 Performed By: #### CBCDFC, CA, CHM6, HFP, IPB, LDO, MGO, URICB, PTPTT #### [facility] [address] [place] [address] [facility] [address] [place] [address] CALCIUM Collected: 07/05/2017 Status: F Source: [facility] 12:55 AM [facility] REPOSITORY TYPE CODE TESTS RESULT OUT OF REFERENCE UNITS RANGE LAB CA 8.6-10.5 mg/dL Calcium 9.4 Performed By: #### CBCDFC, CA, CHM6, HFP, IPB, LDO, MGO, URICB, PTPTT #### [facility] [address] [place] [id number] [place] [address] [place] [address] CHEM 6 Collected: 07/05/2017 Status: F Source: [facility] 12:55 AM [facility] REPOSITORY TYPE CODE TESTS RESULT OUT OF REFERENCE UNITS RANGE LAB BUN 7-22 mg/dL BUN 15 LAB NA 133-143 mmol/L Sodium 137 LAB K 3.5-5.0 mmol/L Potassium 4.3 LAB CL 98-108 mmol/L Chloride 99 LAB CO2 22-30 mmol/L Carbon Dioxide 26 LAB CREA 0.70-1.30 mg/dL Creatinine 1.13 LAB GAP 7-17 mmol/L Anion Gap 16 LAB BC BUN/CREA Ratio 13 LAB GFR >60 mL/min/1.73 sqM Est GFR,non >60 [place] LAB GFRA >60 mL/min/1.73 sqM Est GFR, >60 Performed By: #### CBCDFC, CA, CHM6, HFP, IPB, LDO, MGO, URICB, PTPTT #### [facility] [address] [place] [id number] [place] [address] [place] [address] HEPATIC FUNCTION Collected: 07/05/2017 Status: F Source: [facility] 12:55 AM [facility] REPOSITORY TYPE CODE TESTS RESULT OUT OF REFERENCE UNITS RANGE LAB ALB 3.5-5.0 g/dL Albumin 3.9 LAB BILD <0.3 mg/dL Bilirubin Direct 0.1 LAB BILT <1.5 mg/dL Bilirubin Total 0.5 LAB ALP 32-126 U/L Alkaline Phosphatase 52 LAB ALT 10-52 U/L ALT 20 LAB AST 14-40 U/L AST 23 LAB TP 6.4-8.3 g/dL Total Protein 6.9 Performed By: #### CBCDFC, CA, CHM6, HFP, IPB, LDO, MGO, URICB, PTPTT #### [facility] [address] [place] [id number] [place] [address] [place] [address] INORGANIC PHOSPHATE Collected: 07/05/2017 Status: F Source: [facility] 12:55 AM [facility] REPOSITORY TYPE CODE TESTS RESULT OUT OF REFERENCE UNITS RANGE LAB IP 2.2-4.6 mg/dL Inorg Phosphate 3.2 Performed By: #### CBCDFC, CA, CHM6, HFP, IPB, LDO, MGO, URICB, PTPTT #### [facility] [address] [place] [id number] [place] [address] [place] [address] LD TOTAL Collected: 07/05/2017 Status: F Source: [facility] 12:55 AM [facility] REPOSITORY TYPE CODE TESTS RESULT OUT OF RANGE REFERENCE UNITS LAB LD 100-190 U/L High LD Total 286 Performed By: #### CBCDFC, CA, CHM6, HFP, IPB, LDO, MGO, URICB, PTPTT #### [facility] [address] [place] [id number] [place] [address] [place] [address] MAGNESIUM Collected: 07/05/2017 Status: F Source: [facility] 12:55 AM [facility] REPOSITORY TYPE CODE TESTS RESULT OUT OF REFERENCE UNITS RANGE LAB MG 1.6-2.6 mg/dL Magnesium 1.9 Performed By: #### CBCDFC, CA, CHM6, HFP, IPB, LDO, MGO, URICB, PTPTT #### [facility] [address] [place] [address] [place] [address] URIC ACID Collected: 07/05/2017 Status: F Source: [facility] 12:55 AM [facility] REPOSITORY TYPE CODE TESTS RESULT OUT OF RANGE REFERENCE UNITS LAB URIC 3.5-7.0 mg/dL High Uric Acid 8.2 Performed By: #### CBCDFC, CA, CHM6, HFP, IPB, LDO, MGO, URICB, PTPTT #### [facility] [address] [place] [address] [place] [address] PT*PTT Collected: 07/05/2017 Status: F Source: [facility] 12:55 AM [facility] REPOSITORY TYPE CODE TESTS RESULT OUT OF RANGE REFERENCE UNITS LAB PT 11.9-14.2 sec PT 14.2 LAB INR 0.9-1.1 INR 1.1 LAB PTT 24.0-34.3 sec PTT 28.6 Performed By: #### CBCDFC, CA, CHM6, HFP, IPB, LDO, MGO, URICB, PTPTT #### [facility] [address] [place] [address] [place] [address] URINALYSIS Collected: 07/05/2017 Status: F Source: [facility] 12:55 AM [facility] REPOSITORY TYPE CODE TESTS RESULT OUT OF RANGE REFERENCE UNITS LAB ELEVATOR ADJUSTER Clear Appearance Urine Clear LAB SPGR 1.001-1.035 Specific [place] urine 1.027 LAB UGL Negative mg/dL Glucose Urine Negative LAB UKET Negative Ketones Abnormal Urine Trace LAB UBLD Negative Blood Urine Negative LAB UPH 5.0-7.0 pH Urine 5.0 LAB UPR Negative mg/dL Protein Urine Negative LAB UNTR Negative Nitrites Urine Negative LAB ULEU Negative Leukocyte Esterase Negative LAB COLR YEL,DKYEL Color Yellow LAB UURO <2.0 EU/dL Urobilinogen 0.2 urine LAB UWBC 0-5 /HPF WBC Urine 0-5 LAB URBC 0-2 /HPF RBC Urine 0-2 LAB BACT Absent Bacteria Absent LAB UCOM COMMENT URINE None LAB EPIS /HPF Squamous Epithelial 1+ Performed By: #### URIN #### [facility] [address] [place] [address] [facility] [address] [place], [place] [address] TROPONIN Collected: 07/04/2017 Status: F Source: [facility] 8:25 PM [facility] REPOSITORY TYPE CODE TESTS RESULT OUT OF REFERENCE UNITS RANGE LAB TROPONIN 0.00 - 0.05 ng/ml I(LOINC) TROPONIN I 0.01 Result Comment: Elevated troponin (above the 99th percentile) usually indicates myocardial ischemia. Results must be interpreted within the clinical setting. 1.Non-ischemic pathology can also cause elevated troponin levels (e.g., acute pulmonary embolism, myocarditis, pericarditis, heart failure, intracranial injury, rhabdomyolisis, sepsis, shock and renal insufficiency). 2.Approximately 1% of healthy adults have elevated troponin levels. 3.Analytical false positive results rarely occur(due to multiple interferences such as heterophile antibodies). Performed By: #### [id number] #### [place] [address] TROPONIN Collected: 07/04/2017 Status: F Source: [facility] 1:15 PM [facility] REPOSITORY TYPE CODE TESTS RESULT OUT OF REFERENCE UNITS RANGE LAB TROPONIN 0.00 - 0.05 ng/ml I(LOINC) TROPONIN I 0.01 Result Comment: Elevated troponin (above the 99th percentile) usually indicates myocardial ischemia. Results must be interpreted within the clinical setting. 1.Non-ischemic pathology can also cause elevated troponin levels (e.g., acute pulmonary embolism, myocarditis, pericarditis, heart failure, intracranial injury, rhabdomyolisis, sepsis, shock and renal insufficiency). 2.Approximately 1% of healthy adults have elevated troponin levels. 3.Analytical false positive results rarely occur(due to multiple interferences such as heterophile antibodies). Performed By: #### [id number] #### [place] [id number] TROPONIN Collected: 07/04/2017 Status: F Source: [facility] 10:50 AM [facility] REPOSITORY TYPE CODE TESTS RESULT OUT OF REFERENCE UNITS RANGE LAB TROPONIN 0.00 - 0.05 ng/ml I(LOINC) TROPONIN I 0.01 Result Comment: Elevated troponin (above the 99th percentile) usually indicates myocardial ischemia. Results must be interpreted within the clinical setting. 1.Non-ischemic pathology can also cause elevated troponin levels (e.g., acute pulmonary embolism, myocarditis, pericarditis, heart failure, intracranial injury, rhabdomyolisis, sepsis, shock and renal insufficiency). 2.Approximately 1% of healthy adults have elevated troponin levels. 3.Analytical false positive results rarely occur(due to multiple interferences such as heterophile antibodies). Performed By: #### [id number] #### [place] [address] CT ABDOMEN/PELVIS W Observed: 07/04/2017 Status: F Source: [facility] 8:48 AM [place] [address] Patient: CARINE ANTONIO Phone#: : [phone] Age: 61 Gender: M Pt. Type: ER Account: [id number] Location: 05 Ordering: EDILMA WASHINGTON Exam Date: 07/04/2017/8:30 Family Phys: DAHLIA ZULETA Charge Code: [id number] Physician: [place] Order #: [id number] DLP Dose#: [id number] PROCEDURE: CT ABDOMEN/PELVIS WITH CONTRAST COMPARISON: None. INDICATIONS: Abdomen pain TECHNIQUE: After obtaining the patient's consent, CT images were created with non-ionic intravenous contrast material. All CT scans at this facility use dose modulation, iterative reconstruction, and/or weight based dosing when appropriate to reduce radiation dose to as low as reasonably achievable. IV CONTRAST: Omnipaque 350,80ml TOTAL DOSE: 117.60 CTDIvol(mGy) FINDINGS: LIVER: Multiple nonenhancing hypodense foci are present in the right and left hepatic lobes. The largest area of involvement is 9.5 cm. There is also a 5.3 x 1.8 x 7.7 cm subcapsular fluid collection in the posterior right lateral aspect of the liver. BILIARY: Normal. No visible dilatation or calcification. PANCREAS: A 5.9 x 5.6 x 5.5 cm mildly lobulated hypodense mass is present interposed between the tail of the pancreas, left kidney and spleen. Fat planes are obliterated in origin is difficult to determine with certainty SPLEEN: Normal. No enlargement or focal lesion. KIDNEYS: Normal. No mass, obstruction, or calcification. ADRENALS: Normal. No mass or enlargement. 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 No aneurysm or dissection. RETROPERITONEUM: A 3.5 cm lymph node mass is present anterior to the aorta at the level of the renal vessels. Continued Report - Page 2 of 2 Patient: CARINE ANTONIO Phone#: : [phone] Age: 61 Gender: M Pt. Type: ER Account: [id number] Location: 2 Ordering: EDILMA WASHINGTON Exam Date: 07/04/2017/8:30 Family Phys: DAHLIA MCDONALDNANCY Charge Code: [id number] Physician: [place] Order #: [id number] DLP Dose#: [id number] BOWEL/MESENTERY: Colonic diverticula are present. No visible mass, obstruction, or bowel wall thickening. ABDOMINAL WALL: Normal. No mass or hernia. URINARY BLADDER: Normal. No visible focal wall thickening, lesion, or calculus. PELVIC NODES: Normal. No adenopathy. PELVIC ORGANS: The prostate measures 5.8 x 5.9 x 5.3 cm. BONES: Degenerative changes of the spine are present. There is diffuse disc space narrowing at the lumbar level. There is minimal retrolisthesis at the L5-S1 level. LUNG BASES: A 6 mm nodule is present in the posterior lateral right lung base. OTHER: Negative. CONCLUSION: 1. Multiple hypoattenuating foci are present in the liver suspicious for metastatic disease. There is a right hepatic subcapsular fluid collection. 2. A 5.9 cm lobulated mass present in the left upper abdomen and may be pancreatic origin. Fat planes between the left kidney and spleen however are obscured. 3. 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 4. There is a 3.5 cm probable lymph node mass anterior to the aorta at the renal level. Dictated by: Fabiola Guerra MD on 07/04/2017 at 9:17 Approved by: Fabiola Guerra MD on 07/04/2017 at 9:17 CHEST 2 VIEWS Observed: 07/04/2017 Status: F Source: [facility] 8:33 AM [place] [address] Patient: CARINE ANTONIO Phone#: : [phone] Age: 61 Gender: M Pt. Type: ER Account: [id number] Location: 052 Ordering: EDILMA WASHINGTON Exam Date: 07/04/2017/8:07 Family Phys: DAHLIA ZULETA Charge Code: [id number] Physician: [place] Order #: [id number] DLP Dose#: PROCEDURE: X-RAY CHEST 2 VIEWS COMPARISON: None. INDICATIONS: Pain FINDINGS: LUNGS: Normal. No significant pulmonary parenchymal abnormalities. VASCULATURE: Normal. Unremarkable pulmonary vasculature. CARDIAC: Normal. No cardiac silhouette abnormality or cardiomegaly. MEDIASTINUM: Normal. No visible mass or adenopathy. PLEURA: Normal. No effusion or pleural thickening. BONES: Mild degenerative changes of the spine are present. OTHER: Negative. CONCLUSION: No acute disease. Dictated by: Fabiola Guerra MD on 07/04/2017 at 8:42 Approved by: Fabiola Guerra MD on 07/04/2017 at 8:42 CBC Collected: 07/04/2017 Status: F Source: [facility] 7:24 AM [facility] TYPE CODE TESTS RESULT OUT OF RANGE REFERENCE UNITS LAB CBC(LOINC) CBC Result Comment: CBC-COMPLETE BLOOD COUNT LAB WBC(LOINC) 4.5 - 10.8 x 10EE3/UL WBC 8.4 LAB RBC(LOINC) 4.50 - x 10EE6/UL 6.00 RBC Low 4.27 LAB HEMOGLOBIN(LOINC) 13.0 - g/dl 17.5 Low HEMOGLOBIN 12.4 LAB HEMATOCRIT(LOINC) 40.0 - % 52.0 Low HEMATOCRIT 37.1 LAB MCV(LOINC) 81 - 98 fl MCV 87 LAB MCH(LOINC) 27 - 33 pg MCH 29 LAB MCHC(LOINC) 32 - 36 X10 3 MCHC 33 LAB RDW/CV(LOINC) 12.0 - % 15.6 RDW/CV 13.6 LAB PLATELET(LOINC) 150 - 450 x10EE3/UL PLATELET 242 LAB MPV(LOINC) 6.4 - 10.5 fl MPV 9.5 Result Comment: AUTOMATED DIFFERENTIAL LAB NEUT %(LOINC) 46.0 - % 76.0 NEUT % 67.8 LAB LYMPH %(LOINC) 20.0 - % Low 45.0 LYMPH % 13.7 LAB MONOS %(LOINC) 0.0 - 10.0 % MONOS % 11.7 High LAB EO %(LOINC) 0.0 - 7.0 % EO % 5.6 LAB BASO %(LOINC) 0.0 - 2.0 % BASO % 1.2 LAB Lymph #(LOINC) 0.80 - x10EE3/ 2.80 UL Lymph # 1.10 LAB Neut #(LOINC) 1.50 - x10EE3/ 7.10 UL Neut # 5.70 LAB Christian #(LOINC) 0.20 - x10EE3/ 1.00 UL Christian # 1.00 LAB EO #(LOINC) 0.00 - x10EE3/ 0.50 UL EO # 0.50 LAB Baso #(LOINC) 0.00 - x10EE3/ 0.10 UL Baso # 0.10 LAB MANUAL DIFF(LOINC) MANUAL DIFF REVIEWED LAB MORPHOLOGY(LOIN C) MORPHOLOGY REVIEWED Result Comment: {CD] Performed By: #### [id number] #### [place] [address] LIPASE Collected: 07/04/2017 Status: F Source: [facility] 7:24 [facility] REPOSITORY TYPE CODE TESTS RESULT OUT OF REFERENCE UNITS RANGE LAB LIPASE(LOIN 18.0 - 51.0 U/L C) LIPASE 25.0 Performed By: #### [id number] #### [place] [address] CMP WITH EGFR Collected: 07/04/2017 Status: F Source: [facility] 7:24 [facility] REPOSITORY TYPE CODE TESTS RESULT OUT OF RANGE REFERENCE UNITS LAB CMP with eGFR(LOINC) CMP with eGFR Result Comment: COMPREHENSIVE METABOLIC PANEL LAB SODIUM(LOINC) 136 - 145 mmol/l SODIUM 136 LAB POTASSIUM(LOINC) 3.5 - 5.1 mmol/L POTASSIUM 4.9 LAB CHLORIDE(LOINC) 98 - 107 mmol/L CHLORIDE 98 LAB CO2(LOINC) 21.0 - mmol/L 31.0 CO2 27.3 LAB GLUCOSE(LOINC) 74 - 106 mg/dl GLUCOSE High 201 LAB BUN(LOINC) 6 - 20 mg/dl BUN 12 LAB CREATININE(LOINC) 0.7 - 1.3 mg/dl CREATININE 0.9 LAB AST/SGOT(LOINC) 13 - 39 U/L AST/SGOT 24 LAB ALK PHOS(LOINC) 38 - 126 U/L ALK PHOS 39 LAB CALCIUM(LOINC) 8.6 - mg/dl 10.2 CALCIUM 9.1 LAB TOTAL 6.4 - 8.3 g/dl PROTEIN(LOINC) TOTAL PROTEIN 6.4 LAB ALBUMIN(LOINC) 3.4 - 4.8 g/dL ALBUMIN 3.8 LAB GLOBULIN(LOINC) 1.5 - 3.8 G/DL GLOBULIN 2.6 LAB A/G RATIO(LOINC) 0.9 - 1.6 A/G RATIO 1.5 LAB TOTAL BILI(LOINC) 0.0 - 1.5 mg/dl TOTAL BILI 0.4 LAB B/C RATIO(LOINC) 0 - 30 ratio B/C RATIO 13 LAB ALT/SGPT(LOINC) 10 - 40 U/L ALT/SGPT 23 LAB ANION GAP(LOINC) 10 - 20 mmol/L ANION GAP 16 LAB AGE(LOINC) years AGE 61 LAB eGFR(LOINC) 60 - 999 ML/MINUTE eGFR >60 LAB eGFR(AA)(LOINC) 60 - 999 ML/MINUTE eGFR(AA) >60 Result Comment: ACCORDING TO THE NATIONAL KIDNEY DISEASE EDUCATION PROGRAM(NKDE), A NORMAL eGFR IS A VALUE GREATER THAN OR EQUAL TO 60 ML/MIN/1.73 SQ METERS. CHRONIC KIDNEY DISEASE: <60mL/MIN/1.73 SQ METERS KIDNEY FAILURE: <15mL/MIN/1.73 SQ METERS THIS TEST SHOULD ONLY BE USED FOR PATIENTS 18 YEARS OF AGE AND OLDER. Performed By: #### [id number] #### [facility],[address] [place] [address] TROPONIN Collected: 07/04/2017 Status: F Source: [facility] 7:24 AM [facility] REPOSITORY TYPE CODE TESTS RESULT OUT OF REFERENCE UNITS RANGE LAB TROPONIN 0.00 - 0.05 ng/ml I(LOINC) TROPONIN I 0.01 Result Comment: Elevated troponin (above the 99th percentile) usually indicates myocardial ischemia. Results must be interpreted within the clinical setting. 1.Non-ischemic pathology can also cause elevated troponin levels (e.g., acute pulmonary embolism, myocarditis, pericarditis, heart failure, intracranial injury, rhabdomyolisis, sepsis, shock and renal insufficiency). 2.Approximately 1% of healthy adults have elevated troponin levels. 3.Analytical false positive results rarely occur(due to multiple interferences such as heterophile antibodies). Performed By: #### [id number] #### [facility],[address] [place] [address] ALLERGIES ALLERGIES DATE TYPE / CODE NAME / CODE REACTION SEVERITY SOURCE 04/08/2018 Drug No Known Unknown [place] Allergy/[id number](S Allergies/F0019 [facility] NOMED CT) [address](RXNORM) Hospital Repository Miscellaneous No Known Drug Moderate [facility] Allergy/[id number](S Allergies ([facility] NOM[facility]) Modifier) Hospital (Qualifier Repository Value) ENCOUNTERS ENCOUNTERS ADMIT/DISCHARGE ACCOUNT NUMBER ADMITTING ENCOUNTER LOCATION SOURCE CLASS 04/08/2018 [id number] [facility] ding:OMD Repository 04/03/2018 [id number] [facility] ding:MEDOUT Repository 04/02/2018 [id number] [place] [facility] DAHLIA [facility] Repository 04/02/2018 [id number] [facility] Repository 04/02/2018 [id number] [facility] Repository 04/01/2018 [id number] Ambulatory Building:[facility] Repository 04/01/2018 [id number] Ambulatory Building:[facility] Repository 03/20/2018 [id number] [facility] ding:MEDOUT Repository 03/18/2018 [id number] Ambulatory Building:[facility] Repository 03/06/2018 [id number] [facility]ulatory [facility] ding:MEDOUT Repository 03/04/2018 [id number] Ambulatory Building:[facility] Repository 03/04/2018 [id number] Ambulatory Building:[facility] Repository 02/20/2018 [id number] [facility]ulatory [facility] ding[facility] Repository 02/18/2018 [id number] Ambulatory Building:[facility] Repository 02/06/2018 [id number] Ambulatory [facility] ding:[facility] Repository 02/04/2018 [id number] Ambulatory Building:[facility] Repository 02/04/2018 [id number] Ambulatory Building:[facility] Repository 01/27/2018 [id number] Ambulatory Building:[facility] Repository 01/27/2018 [id number] Ambulatory Building:[facility] Repository 01/21/2018 [id number] Ambulatory Building:[facility] Repository 01/07/2018 [id number] Ambulatory Building:[facility] Repository 01/07/2018 [id number] Ambulatory Building:[facility] Repository 12/24/2017 [id number] Ambulatory Building:[facility] Repository 12/10/2017 [id number] Ambulatory Building:[facility] Repository 12/10/2017 [id number] Ambulatory Building:[facility] Repository 11/26/2017 [id number] Ambulatory Building:[facility] Repository 11/12/2017 [id number] Ambulatory Building:[facility] Repository 10/29/2017 [id number] Ambulatory Building:[facility] Repository 10/29/2017 [id number] Ambulatory Building:[facility] Repository 10/21/2017 [id number] Ambulatory Building:[facility] Repository 10/21/2017 [id number] Ambulatory Building:[facility] Repository 10/15/2017 [id number] Ambulatory Building:[facility] Repository 10/01/2017 [id number] Ambulatory Building:[facility] Repository 10/01/2017 [id number] Ambulatory Building:[facility] Repository 09/17/2017 [id number] Ambulatory Building:[facility] Repository 09/03/2017 [id number] Ambulatory Building:[facility] Repository 09/03/2017 [id number] Ambulatory Building:[facility] Repository 08/28/2017/08/29/19 [id number] JAKE, Ambulatory [address] Repository 08/27/2017/08/28/19 [id number] ANN MARIE, Emergency Buildin [facility] DEEDEE Ibarra Room: ERB: [facility] Repository 08/20/2017 [id number] Ambulatory Building:[facility] Repository 08/06/2017 [id number] Ambulatory Building:[facility] Repository 08/06/2017 [id number] Ambulatory Building:[facility] Repository 08/05/2017 [id number] Ambulatory Building:CT1 [facility] Repository 07/23/2017 [id number] Ambulatory Building:[facility] Repository 07/22/2017/07/23/19 [id number] REZA GUTIERREZ, Ambulatory Building:[address] VIRRoom: [facility] Repository 07/19/2017 [id number] Ambulatory Building:CT5 [facility] Repository 07/18/2017 [id number] Ambulatory Building:[facility]O [facility] Repository 07/04/2017/07/07/19 [id number] TARA, Ambulatory Building:[address] [address] ELVIRA Pearson ARoom: [address]: [facility] Repository 07/04/2017/07/05/19 [id number] FELIX, Emergency Buildin[address] [place] [address] EDILMA TRIMBLE Room: ERBed: [facility] Repository PAYERS PAYERS ENCOUNTER GUARANTOR PAYER SUBSCRIBER SOURCE 04/08/2018 MERLE D Primary SYLWIA [place] [id number] Insurance:AULTCAREPoli SCHLABACHDOB: [facility] RONSAN cy Number: [id number] [facility], [id number] [place]ository [place] [address]Zvr: Date:4025-14-98DD [address] [place] [address] () [address]AJ: 04/08/2018 Secondary NOT GIVENUNK [place] Insurance:SELF PAY [facility] Number: Effective Repository Date:2018-04-02 04/03/2018 MERLE D Primary SYLWIA [place] [id number] Insurance:AULTCAREPoli SCHLABACHDOB: [facility] RONN cy Number: [id number] Ridge Medical [facility], [id number] [place]ository [place] [address]Owc: Date:0617-49-05YW [address] [place] [address] () [address]QC: 04/03/2018 Secondary NOT GIVENUNK [place] Insurance:SELF PAY [facility] Number: Effective Repository Date:2018-04-01 04/02/2018 MERLE Primary SYLWIA Ramon Humphrey SCHLABACHDOB: Insurance:AULTCAREPoli SCHLABACHDOB: [facility] [id number] cy Number: [id number] [place] [address] [id number] [facility] Repository [facility], Date:2035-04-79BwnnThree [facility] [address]Hpb: Name:BOZENA [phone] (HP) 04/02/2018 MERLE Primary SYLWIA Humphrey SCHLABACHDOB: Insurance:AULTCARE SCHLABACHDOB: [facility] [id number] Hospital [facility] Number: PADMINI [facility]ository [facility], [id number] [facility] [address]Yne: Date:Plan Name: [phone] (HP) 04/02/2018 Secondary SYLWIA [place] Humphrey Insurance:[facility] SCHLABACHDOB: [address] [id number] Hospital OUTPATIENTPolicy [address], Repository Number: [place] [id number] Date:[address], [place] [id number]: 04/02/2018 MERLE Primary SYLWIA Humphrey SCHLABACHDOB: Insurance:AULTCAREPoli [facility]: [facility] cy Number: [id number] [place] [address] [id number] [facility], Date:3712-47-73Hfct [facility] [address]Upj: Name: [phone] () 04/01/2018 MERLE Primary SYLWIA [facility]LAB[facility]HDOB: Insurance:[facility]AREKindred [facility] PhiladelphiaLABACHDOB: [place] cy Number: [id number] [place] [address] [id number] [facility], Date:6081-15-49Jqwh [place] [address]Jmw: Name:[facility] CARE [address]Udj: [phone] () (HP) 04/01/2018 MERLE Primary SYLWIA [facility] SCHLABACHDOB: Insurance:AULTCAREPolSaint Luke's North Hospital–Barry RoadLABACHDOB: [place] cy Number: [id number] [facility] [id number] [facility], Date:7106-73-64Bpjp [place] Repository [place] [address]Rxf: Name:MANAGED CARE 43707Lku: [phone] () () 03/20/2018 MERLE D Primary SYLWIA [place] [id number] Insurance:AULTCAREPoli [facility]ITALLABACHDOB: [facility] RONSAN cy Number: [id number] Ridge Medical Center, [id number] [place]ository [place] [address]Fbz: Date:5183-08-63VC [address] [place] [address] () [address]LR: 03/20/2018 Secondary NOT GIVENUNK [place] Insurance:SELF PAY [facility] Number: Effective Repository Date:2018-03-18 03/18/2018 MERLE Primary SYLWIA [facility] SCHLABACHDOB: Insurance:[facility]: [place] cy Number: [id number] [place] [address] [id number] University [facility], Date:8884-46-86Clkc [place] Repository [place] [address]Exc: Name:[facility] CARE 34659Beq: [phone] () () 03/06/2018 MERLE D Primary SY[place] [id number] Insurance:AULTCAREPoli SCHLABACHDOB: [facility] RONSAN cy Number: [id number] [facility] Medical [facility], [id number] [place]ository [place] [address]Pna: Date:7530-89-27ZB [address], [place] () [address]IY: 03/06/2018 Secondary NOT GIVENUNK [place] Insurance:SELF PAY [facility] Number: Effective Repository Date:2018-03-04 03/04/2018 MERLE Primary SYLWIA [facility] SCHLABACHDOB: Insurance:[facility]: [place] cy Number: [id number] [facility] [id number] [facility], Date:1153-07-10Jlzk [place], [place] Repository [place] [address]Rcm: Name:MANAGED CARE 89712Xfp: [phone] () () 03/04/2018 MERLE Primary SYLWIA [facility] SCHLABACHDOB: Insurance:AULTCAREPoli [facility]ALL[facility]ACHDOB: [place] cy Number: [id number] [facility] [id number] [facility], Date:1052-37-40Evuh [place] Repository [place] [address]Eys: Name:MANAGED CARE 70111Hbm: [phone] () () 02/20/2018 MERLE D Primary SY[place] [id number] Insurance:AULTCAREPoli SCHLABACHDOB: Community RONSAN cy Number: [id number] Ridge Medical [facility], [id number] [place]ository [place] [address]Znq: Date:6927-63-15SQ [address] [place] [address] () [address]YH: 02/20/2018 Secondary NOT GIVENUNK [place] Insurance:SELF PAY [facility] Number: Effective Repository Date:2018-02-18 02/18/2018 MERLE Primary SYLWIA [facility] SCHLABACHDOB: Insurance:AULTCAREPoli [facility]ACHDOB: [place] cy Number: [id number] [facility] [id number] [facility], Date:8131-81-44Skga [place] Repository [place] [address]Wvb: Name:MANAGED CARE 30[address]Daf: [phone] () (HP) 02/06/2018 MERLE D Primary Sylwia [place] [id number] Insurance:AULTCAREPoli SchlabachDOB: Community RONSAN cy Number: [id number] Ridge Medical Center, [id number] [place]ository [place] [address]Nno: Date:0190-32-66ZK [address] [place] [address] () [address]AX: 02/06/2018 Secondary NOT GIVENUNK [place] Insurance:SELF PAY [facility] Number: Effective Repository Date:2018-02-05 02/04/2018 MERLE Primary [facility] SCHLABACHDOB: Insurance:FREDERICKCAREKindred Hospital PhiladelphiaLABACHDOB: [place] cy Number: [id number] [place] [address] [id number] [facility], Date:5134-40-71Bini [place] Repository [place] [address]Sgt: Name:MANAGED CARE 94511Rsk: [phone] () () 02/04/2018 MER Primary [facility]LAB[facility]OB: Insurance:[facility] HospitalB: [place] cy Number: [id number] [facility] [id number] [facility], Date:2511-20-07Yief [place]ository [place] [address]Ekt: Name:MANAGED CARE 14140Kjb: [phone] () () 01/27/2018 MERLE Primary [facility] SCHLABACHDOB: Insurance:AUCAREKindred Hospital PhiladelphiaLABACHDOB: [place] cy Number: [id number] [facility] [id number] Regional Medical Center, Date:8200-66-49Fsgn [place]ository [place] [address]Zui: Name:MANAGED CARE 85183Kkz: [phone] () () 01/27/2018 MERLE Primary [facility] HospitalLABACHDOB: Insurance:[facility]: [place] cy Number: [id number] [facility] [id number] University Health North [facility], Date:5360-66-66Ldgo [place] Repository [place] [address]Tul: Name:MANAGED CARE 380[address]Rcp: [phone] (HP) (HP) 01/21/2018 MERLE Primary SYLWIA [facility]LABACHDOB: Insurance:[facility]: [place] cy Number: [id number] [facility] [id number] Regional Medical Center, Date:6993-83-83Gmgl [place] Repository [place] [address]Dke: Name:MANAGED CARE 30337Tze: [phone] (HP) (HP) 01/07/2018 MERLE Primary [facility] HospitalACHD[facility]: Insurance:[facility]: [place] cy Number: [id number] [facility] [id number] Regional Medical Center, Date:7415-87-24Cini [place] Repository [place] [address]Xbf: Name:MANAGED CARE 01803Ttv: [phone] (HP) (HP) 01/07/2018 MERLE Primary SYLWIA [facility] HealthcareACHDOB: Insurance:[facility] HospitalB: [place] cy Number: [id number] [facility] [id number] Regional Medical Center, Date:4561-51-99Bffv [place] Repository [place] [address]Xth: Name:MANAGED CARE 05416Ywx: [phone] (HP) (HP) 12/24/2017 MERLE Primary SYLWIA [facility] EastLABACHDOB: Insurance:[facility] HospitalB: [place] cy Number: [id number] [facility] [id number] Regional Medical Center, Date:5440-40-93Bgox [facility] [place] [address]Gel: Name:MANAGED CARE 93434Bgi: [phone] (HP) (HP) 12/10/2017 MERLE Primary SLYWIA [facility] EastLABACHDOB: Insurance:[facility] HospitalB: [place] cy Number: [id number] [facility] [id number] Regional Medical Center, Date:2516-30-94Tenv [facility], [place]ository [place] [address]Ezb: Name:MANAGED CARE 24936Uqp: [phone] () (HP) 12/10/2017 MERLE Primary SYLWIA [facility] HealthcareACHDOB: Insurance:[facility]: [place] cy Number: [id number] [facility] [id number] Regional Medical Center, Date:7374-89-18Sshg [facility], [place] Repository [place] [address]Vmb: Name:MANAGED CARE 71084Lkm: [phone] (HP) (HP) 11/26/2017 MERLE Primary SYLWIA [facility] EastLABACHDOB: Insurance:[facility] HospitalB: [place] cy Number: [id number] [facility] [id number] Regional Medical Center, Date:6660-28-01Qzux [facility], [place] Repository [place] [address]Yem: Name:MANAGED CARE 24783Tlc: [phone] (HP) (HP) 11/12/2017 MERLE Primary SYLWIA [facility] HealthcareACHDOB: Insurance:[facility] HospitalB: [place] cy Number: [id number] [facility] [id number] Regional Medical Center, Date:5496-19-41Lbeg [place] Repository [place] [address]Plc: Name:MANAGED CARE 12771Ksn: [phone] (HP) (HP) 10/29/2017 MERLE Primary SYLWIA [facility] HealthcareACHDOB: Insurance:[facility] HospitalB: [place] cy Number: [id number] [facility] [id number] Regional Medical Center, Date:3357-32-09Vuwe [facility] [place] Repository [place] [address]Dgz: Name:MANAGED CARE 36898Icr: [phone] () (HP) 10/29/2017 MERLE Primary SYLWIA [facility] HealthcareACHDOB: Insurance:[facility]: [place] cy Number: [id number] [facility] [id number] Regional Medical Center, Date:0367-14-79Xqed [facility], [place] Repository [place] [address]Jch: Name:MANAGED CARE 41874Bfz: [phone] (HP) (HP) 10/21/2017 MERLE Primary SYLWIA [facility] HealthcareACHDOB: Insurance:AUPeaceHealth United General Medical CenterB: [place] cy Number: [id number] [facility] [id number] Orleans East Hospital, Date:6769-01-74Nhya [facility] [place] [address]Jly: Name:MANAGED CARE 36335Its: [phone] (HP) (HP) 10/21/2017 MERLE Primary SYLWIA [facility] EastLABACHDOB: Insurance:[facility]: [place] cy Number: [id number] [facility] [id number] Orleans East Hospital, Date:4280-64-08Hmpr [facility], [place] [address]Tyz: Name:MANAGED CARE 39356Hfk: [phone] (HP) (HP) 10/15/2017 MERLE Primary SYLWIA [facility]LABACHDOB: Insurance:[facility]: [place] cy Number: [id number] [facility] [id number] Regional Medical Center, Date:1340-46-48Ojct [facility], [place] Rep[place] [address]Idy: Name:MANAGED CARE 02584Her: [phone] (HP) (HP) 10/01/2017 MERLE Primary SYLWIA [facility] EastLABACHDOB: Insurance:[facility]: [place] cy Number: [id number] [facility] [id number] Regional Medical Center, Date:9558-95-70Xgqi [facility], [place] Rep[place] [address]Ofv: Name:MANAGED CARE 17973Xcv: [phone] (HP) (HP) 10/01/2017 MERLE Primary SYLWIA [facility]LABACHDOB: Insurance:[facility]: [place] cy Number: [id number] [facility] [id number] Regional Medical Center, Date:1933-81-15Cnoi [facility], [place] Rep[place] [address]Nkt: Name:MANAGED CARE 22597Byb: [phone] (HP) (HP) 09/17/2017 MERLE Primary SYLWIA [facility] HealthcareACHDOB: Insurance:[facility]: [place] cy Number: [id number] [facility] [id number] [facility], Date:5371-17-23Qgay [place] [address]Bbp: Name:MANAGED CARE 37245Ytk: [phone] (HP) (HP) 09/03/2017 MERLE Primary SYLWIA [facility] HealthcareACHDOB: Insurance:[facility]: [place] cy Number: [id number] [facility] [id number] [facility], Date:0405-75-39Vggm [place]ository [place] [address]Rgk: Name:MANAGED CARE 44244Wnb: [phone] () (HP) 09/03/2017 MERLE Primary SYLWIA [facility] HealthcareACHDOB: Insurance:[facility]: [place] cy Number: [id number] [facility] [id number] [facility], Date:8333-38-24Rufe [place] Rep[place] [address]Fxy: Name:MANAGED CARE 02941Kop: [phone] (HP) (HP) 08/28/2017 MERLE Primary SYLWIA Ramon Humphrey [facility] CENTERACHDOB: Insurance:[facility]: [facility] [id number] [facility] Number: [facility] Repository [facility], [id number], [place] [address]Hha: Date:Plan Name:A2 [phone] (HP) 08/27/2017 MERLE Primary SYLWIA Ramon PombeckyThe Outer Banks HospitalLABACHDOB: Insurance:[facility]: [facility] [id number] [facility] Number: PADMINI [facility], [id number] Eye, Ear and Throat Hospital [address]Krn: Date:Plan Name:A2 [phone] () 08/20/2017 MERLE Primary [facility] HospitalLABACHDOB: Insurance:[facility]B: [place] cy Number: [id number] [facility] [id number] [facility], Date:7579-37-27Idwp [place] Rep[place] [address]Spc: Name:MANAGED CARE 84104Vpr: [phone] () () 08/06/2017 [facility] HospitalLABACHDOB: Insurance:[facility] HospitalB: [place] cy Number: [id number] [facility] [id number] Regional Medical Center, Date:4875-51-30Chck [place] Repository [place] [address]Tyd: Name:MANAGED CARE 08622Kxx: [phone] (HP) (HP) 08/06/2017 [facility] Primary [facility] HospitalACHDOB: Insurance:[facility] HospitalB: [place] cy Number: [id number] [facility] [id number] [facility], Date:8187-12-03Zvvp [place] Repository [place] [address]Oga: Name:MANAGED CARE [address]58[address]Qqy: [phone] (HP) (HP) 08/05/2017 [facility] Primary [facility] HospitalLABACHDOB: Insurance:[facility]: [place] cy Number: [id number] [facility] [id number] Regional Medical Center, Date:0314-24-34Yqzz [place] Repository [place] [address]Kkx: Name:MANAGED CARE 665[address]Rii: [phone] (HP) (HP) 07/23/2017 MERLE Primary SYLWIA [facility] HealthcareACHDOB: Insurance:[facility]: [place] cy Number: [id number] [facility] [id number] Regional Medical Center, Date:4381-55-32Lwnl [facility], [place] Repository [place] [address]Oce: Name:MANAGED CARE [address]Unz: [phone] (HP) (HP) 07/22/2017 MERLE Primary [facility] HospitalACHDOB: Insurance:[facility]: [place] cy Number: [id number] [facility] [id number] Regional Medical Center, Date:1267-45-40Srxd [facility], [place] [address]Rpp: Name:MANAGED CARE 51912Mml: [phone] (HP) (HP) 07/19/2017 MERLE Primary [facility] HospitalACHDOB: Insurance:[facility]: [place] cy Number: [id number] [facility] [id number] Regional Medical Center, Date:3620-04-15Vytz [facility], [place] [address]Ifg: Name:MANAGED CARE 97555Eya: [phone] (HP) (HP) 07/18/2017 MERLE Primary SYLWIA [facility] EastLABACHDOB: Insurance:[facility]: [place] cy Number: [id number] [facility] [id number] [facility], Date:5539-95-10Bfxe [place] [address]War: Name:MANAGED CARE 43946Hju: [phone] () () 07/04/2017 MERLE Primary SYLWIA [facility] HealthcareACHDOB: Insurance:[facility] HospitalB: [place] cy Number: [id number] [facility] [id number] [facility], Date:6722-78-70Aqej [place] Rep[place] [address]Umx: Name:MANAGED CARE 49297Ygt: [phone] () (HP) 07/04/2017 MER Primary SYLWIA Ramon Humphrey [facility] CENTERACHDOB: Insurance:[facility]B: [facility] [id number] [facility] Number: PADMINI Repository [facility], [id number] Memorial Hospital [address]Oes: Date:Plan Name:A2 [phone] ()
== END ==
PROVIDERS: Family Provider Internal Medicine; PCP Internal Medicine
DX: C25.9 Malignant neoplasm of pancreas, unspecified (principal)
CPT/HCPCS: 96372; 96523; A4216; J2505

== ENCOUNTER → 2018-04-03 13:21 | Outpatient (CLI) | payer OTHER, SELFPAY ==
[2018-03-20 13:18] VITALS: BMI 56.3
[2018-04-03 14:06] VITALS: BMI 56.3
--- OUTSIDE RECORDS SUMMARY | 2018-05-20 09:22 | XMS RPT_ITS | Summary of Care ---
:1955 Author Organization [facility] Address [address] [place] [address] Phone Care Team Providers Name Role Phone [...] Infusion Visit Chemotherapy Tracie Waller MD [address] [address] 04/01/2018 Office Visit Hematology Tracie Waller MD [address] [address] 04/01/2018 Infusion Visit Chemotherapy Tracie Waller MD [address] [address] Scheduled Tests Name Priority Associated [...] of this encounter Implants Implanted Type Area Assistant Professor Sculpture Device Expiration Model / Identifier Date Serial / Lot Port Mri Dual Powerport - [id number] Port Right: BARD PERIPHERAL 01/19/2019 [id number] / Implanted: Qty: 1 on 07/22/2017 by Brenton Gonzalez MD Chest / Wall [id number] as of this encounter
--- OUTSIDE RECORDS SUMMARY | 2018-05-20 09:22 | XMS RPT_ITS | Summary of Care ---
:1955 Author Organization [facility]'s [facility] Address [address] [place] [address] Phone Care Team Providers Name Role Phone Viet Zuleta MD Primary Care Provider Reason for Visit Reason Comments Referral Encounter Details Date Type Department Care Team Description 03/18/2018 Continuity of Care Pastoral Care Ambulatory Julien Bhardwaj [address] [place] [address] Allergies No Known Allergiesas of this encounter [...] Visit Hematology Tracie Waller MD [address] [address] 04/01/2018 Infusion Visit Chemotherapy Tracie Waller MD [address] [address] Health Maintenance Due Date Last Done Comments HEPATITIS C VIRUS SCREENING 1955 HIV SCREENING DISCUSSION 1969 TETANUS 1974 TDAP (ADULT) 10/14/1975 LIPID SCREENING 1996 COLON CANCER SCREENING DISCUSSION 2006 PROSTATE CANCER SCREENING 2006 DISCUSSION INFLUENZA VACCINE (#1) 2017 POTASSIUM 03/04/2019 03/04/2018, 03/04/2018, 02/18/2018, Additional history exists as of this encounter Implants Implanted Type Area Guest Associate Device Expiration Model / Identifier Date Serial / Lot Port Mri Dual Powerport - [id number] Port Right: BARD PERIPHERAL 01/19/2019 [id number] / Implanted: Qty: 1 on 07/22/2017 by Brenton Gonzalez MD Chest / Wall [id number] as of this encounter
--- OUTSIDE RECORDS SUMMARY | 2018-05-20 09:22 | XMS RPT_ITS | Summary of Care ---
:1955 Author Organization [facility] Address [address] 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
--- OUTSIDE RECORDS SUMMARY | 2018-05-20 09:23 | XMS RPT_ITS ---
:1955 Author Organization [place] Support Name Relationship Address Phone [employer] Unavailable [address] + [place] [address] PACO, SYLWIA Unavailable [address] + [place] [address] [employer] Unavailable [address] + [place] [address] PACO, SYLWIA Unavailable [address] + [place] [address] PACO, SYLWIA Unavailable [address] + [place] [address] PACO, MERLE Unavailable Unavailable + MARIE CASE Unavailable Unavailable + PACO, SYLWIA Unavailable [address] + [place] [address] PACO, MERLE Unavailable Unavailable + MARIE CASE Unavailable Unavailable + PACO, SYLWIA Unavailable [address] + [place] [address] PACO, MERLE Unavailable Unavailable + MARIE CASE Unavailable Unavailable + [employer] Unavailable [address] + [place] [address] PACO, SYLWIA Unavailable [address] + [place] [address] PACO, SYLWIA Unavailable [address] + [place] [address] PACO, MERLE Unavailable Unavailable + MARIE CASE Unavailable Unavailable + PACO, SYLWIA Unavailable [address] + [place] [address] PACO, MERLE Unavailable Unavailable + MANPREETJOHANASH Unavailable Unavailable + [employer] Unavailable [address] + [place] [address] PACO, SYLWIA Unavailable [address] + [place] [address] [employer] Unavailable [address] + [place] [address] PACO, SYLWIA Unavailable [address] + [place] [address] NOT GIVEN Unavailable Unavailable Unavailable NOT GIVEN Unavailable Unavailable Unavailable PACO, SYLWIA Unavailable [address] [place] [address] MARIE RANDALL Unavailable Unavailable + NOT GIVEN Unavailable Unavailable Unavailable PACO, SYLWIA Unavailable [address] + [place] [address] PACO, MERLE Unavailable Unavailable + MANPREET MARIE Unavailable Unavailable + PACO, SYLWIA Unavailable [address] + [place] [address] PACO, MERLE Unavailable Unavailable + MANPREET MARIE Unavailable Unavailable + [employer] Unavailable [address] + [place] [address] PACO, SYLWIA Unavailable [address] + [place] [address] PACO, SYLWIA Unavailable [address] + [place] [address] PACO, MERLE Unavailable Unavailable + MANPREET MARIE Unavailable Unavailable + [employer] Unavailable [address] + [place] [address] PACO, SYLWIA Unavailable [address] + [place] [address] PACO, SYLWIA Unavailable [address] + [place] [address] PACO, MERLE Unavailable Unavailable + JOHANA CASESH Unavailable Unavailable + PACO, SYLWIA Unavailable [address] + [place] [address] PACO, MERLE Unavailable Unavailable + MANPREET MARIE Unavailable Unavailable + [employer] Unavailable [address] + [place] [address] PACO, SYLWIA Unavailable [address] + [place] [address] PACO, SYLWIA Unavailable [address] + [place] [address] PACO, MERLE Unavailable Unavailable + MARIE CASE Unavailable Unavailable + [employer] Unavailable [address] + [place] [address] PACO, SYLWIA Unavailable Unavailable + PACO, SYLWIA Unavailable [address] + [place] [address] PACO, MERLE Unavailable Unavailable + MANPREET MARIE Unavailable Unavailable + PACO, SYLWIA Unavailable [address] + [place] [address] PACO, MERLE Unavailable Unavailable + MANPREET MARIE Unavailable Unavailable + PACO, SYLWIA Unavailable [address] + [place] [address] PACO, MERLE Unavailable Unavailable + MANPREET MARIE Unavailable Unavailable + PACO, SYLWIA Unavailable [address] + [place] [address] PACO, MERLE Unavailable Unavailable + MANPREET MARIE Unavailable Unavailable + PACO, SYLWIA Unavailable [address] + [place] [address] PACO, MERLE Unavailable Unavailable + MANPREET MARIE Unavailable Unavailable + PACO, SYLWIA Unavailable [address] + [place] [address] PACO, MERLE Unavailable Unavailable + MANPREET MARIE Unavailable Unavailable + PACO, SYLWIA Unavailable [address] + [place] [address] PACO, MERLE Unavailable Unavailable + MANPREET MARIE Unavailable Unavailable + PACO, SYLWIA Unavailable [address] + [place] [address] PACO, MERLE Unavailable Unavailable + MANPREET MARIE Unavailable Unavailable + PACO, SYLWIA Unavailable [address] + [place] [address] PACO, MERLE Unavailable Unavailable + MANPREET MARIE Unavailable Unavailable + PACO, SYLWIA Unavailable [address] + [place] [address] PACO, MERLE Unavailable Unavailable + STANER, MARIE Unavailable Unavailable + PACO, SYLWIA Unavailable [address] + [place] [address] PACO, MERLE Unavailable Unavailable + STANAUBRIE, MARIE Unavailable Unavailable + PACO, SYLWIA Unavailable [address] + [place] [address] PACO, MERLE Unavailable Unavailable + STANER, MARIE Unavailable Unavailable + PACO, SYLWIA Unavailable [address] + [place] [address] PACO, MERLE Unavailable Unavailable + STANER, MARIE Unavailable Unavailable + PACO, SYLWIA Unavailable [address] + [place] [address] PACO, MERLE Unavailable Unavailable + STANER, MARIE Unavailable Unavailable + PACO, SYLWIA Unavailable [address] + [place] [address] PACO, MERLE Unavailable Unavailable + STANER MARIE Unavailable Unavailable + PACO, SYLWIA Unavailable [address] + [place] [address] PACO, MERLE Unavailable Unavailable + STANER, MARIE Unavailable Unavailable + PACO, SYLWIA Unavailable [address] + [place] [address] PACO, MERLE Unavailable Unavailable + STANER MARIE Unavailable Unavailable + PACO, SYLWIA Unavailable [address] + [place] [address] PACO, MERLE Unavailable Unavailable + STANER, MARIE Unavailable Unavailable + PACO, SYLWIA Unavailable [address] + [place] [address] PACO, MERLE Unavailable Unavailable + STANER, MARIE Unavailable Unavailable + PACO, SYLWIA Unavailable [address] + [place] [address] PACO, MERLE Unavailable Unavailable + JOHANA CASESH Unavailable Unavailable + PACO, SYLWIA Unavailable [address] + [place] [address] PACO, MERLE Unavailable Unavailable + JOHANA CASESH Unavailable Unavailable + PACO, SYLWIA Unavailable [address] + [place] [address] PACO, MERLE Unavailable Unavailable + JOHANA CASESH Unavailable Unavailable + NOT GIVEN Unavailable Unavailable Unavailable PACO, SYLWIA Unavailable [address] [place] [address] JOHANA RANDALLSH Unavailable Unavailable + NOT GIVEN Unavailable Unavailable Unavailable PACO, SYLWIA Unavailable [address] [place] [address] JOHANA RANDALLSH Unavailable Unavailable + PACO, SYLWIA Unavailable [address] + [place] [address] PACO, MERLE Unavailable Unavailable + JOHANA CASESH Unavailable Unavailable + PACO, SYLWIA Unavailable [address] + [place] [address] PACO, MERLE Unavailable Unavailable + JOHANA CASESH Unavailable Unavailable + PACO, SYLWIA Unavailable [address] + [place] [address] PACO, MERLE Unavailable Unavailable + MANPREET MARIE Unavailable Unavailable + PACO, SYLWIA Unavailable [address] + [place] [address] PACO, MERLE Unavailable Unavailable + MANPREET MARIE Unavailable Unavailable + PACO, SYLWIA Unavailable [address] + [place] [address] PACO, MERLE Unavailable Unavailable + JOHANA CASESH Unavailable Unavailable + PACO, SYLWIA Unavailable [address] + [place] [address] PACO, MERLE Unavailable Unavailable + STANJOHANA ALFREDSH Unavailable Unavailable + PACO, SYLWIA Unavailable [address] + [place] [address] PACO, MERLE Unavailable Unavailable + MANPREET MARIE Unavailable Unavailable + PACO, SYLWIA Unavailable [address] + [place] [address] PACO, MERLE Unavailable Unavailable + JOHANA CASESH Unavailable Unavailable + PACO, SYLWIA Unavailable [address] + [place] [address] PACO, MERLE Unavailable Unavailable + MARIE CASE Unavailable Unavailable + NOT GIVEN Unavailable Unavailable Unavailable PACO, SYLWIA Unavailable [address] [place] [address] MARIE RANDALL Unavailable Unavailable + Care Team Providers Name Role Phone ELVIRA PACHECO Admitting Unavailable ELVIRA PACHECO Attending Unavailable LATOUF, BUTROS Referring Unavailable AL-TERESITA, DIDIERD Attending Unavailable ELVIRA PACHECO Referring Unavailable LATOUF, BUTROS Primary Care Unavailable CODI JUAREZ Attending Unavailable AL-TERESITA, CHRISTIAN Referring Unavailable LATOUF, BUTROS Primary Care Unavailable AL SUNNY GUTIERREZL Admitting Unavailable AL BRENDA, BRENTON Attending Unavailable LATOUF, BUTROS Primary Care Unavailable AL-MARCARLOS, DIDIERD Attending Unavailable AL-MARCARLOS, DIDIERD Referring Unavailable LATOUF, BUTROS Primary Care Unavailable AL-MARCARLOS, DIDIERD Attending Unavailable AL-MARCARLOS, DIDIERD Referring Unavailable LATOUF, BUTROS Primary Care Unavailable AL-MARRAJOSE LUIS, DIDIERD Attending Unavailable AL-MARRAWI, MHD Referring Unavailable LATOUF, [...] Referring Unavailable LATOUF, BUTROS Primary Care Unavailable OLDEDNA O Attending Unavailable OLD, EDNA O Referring [...] Referring Unavailable LATOUF, BUTROS Primary Care Unavailable LATOUF, BUTROS Primary Care Unavailable AURORA RIGGS Attending Unavailable AURORA RIGGS Referring Unavailable LATOUF, BUTROS Primary Care Unavailable AURORA RIGGS Attending Unavailable AURORA RIGGS Referring Unavailable LATOUF, BUTROS Primary Care Unavailable Al-Marrawi, MHD Yaser Attending Unavailable Al-Marrawi, MHD Yaser Referring Unavailable LATOUF, BUTROS Primary Care Unavailable AURORA RIGGS Attending Unavailable AURORA RIGGS Referring Unavailable LATOUF, BUTROS Primary Care Unavailable Al-Marrawi, MHD Yaser Attending Unavailable Al-Marrawi, MHD Yaser Referring Unavailable Prah, Merritt Attending Unavailable LATOUF, BUTROS Primary Care Unavailable Prah, Merritt Attending Unavailable LATOUF, BUTROS Primary Care Unavailable Prah, Merritt Consulting Unavailable Prah, Merritt Attending Unavailable LATOUF, BUTROS Primary Care Unavailable Prah, Merritt Consulting Unavailable Al-Marrawi, MHD Yaser Referring Unavailable Prah, Merritt Attending Unavailable LATOUF, BUTROS Primary Care Unavailable Prah, Merritt Consulting Unavailable JESSA, MARIANA PA-C Admitting Unavailable JESSA, MARIANA PA-C Attending Unavailable JESSA, MARIANA PA-C Primary Care Unavailable EDILMA WASHINGTON MD Admitting Unavailable EDILMA WASHINGTON MD Attending Unavailable DAHLIA ZULETA MD Referring Unavailable EDILMA WASHINGTON MD Primary Care Unavailable DAHLIA ZULETA MD Consulting Unavailable PROVIDER, UNKNOWN Consulting Unavailable PROVIDER, UNKNOWN Consulting Unavailable PROVIDER, UNKNOWN Consulting Unavailable JESSA, MARIANA PA-C Admitting Unavailable JESSA, MARIANA PA-C Attending Unavailable JESSA, MARIANA PA-C Primary Care Unavailable DAHLIA ZULETA MD Consulting Unavailable PROVIDER, UNKNOWN Consulting Unavailable PROVIDER, UNKNOWN Consulting Unavailable PROVIDER, UNKNOWN Consulting Unavailable DR DEEDEE JESUS Admitting Unavailable DR DEEDEE JESUS Attending Unavailable DR DEEDEE JESUS Primary Care Unavailable DAHLIA ZULETA MD Consulting Unavailable DAHLIA ZULETA MD Referring Unavailable PROVIDER, UNKNOWN Consulting Unavailable PROVIDER, UNKNOWN Consulting Unavailable PROVIDER, UNKNOWN Consulting Unavailable DAHLIA ZULETA MD Admitting Unavailable DAHLIA ZULETA MD Attending Unavailable DAHLIA ZULETA MD Primary Care Unavailable DAHLIA ZULETA MD Consulting Unavailable PROVIDER, UNKNOWN Consulting Unavailable PROVIDER, UNKNOWN Consulting Unavailable PROVIDER, UNKNOWN Consulting Unavailable DAHLIA ZULETA MD Admitting Unavailable LATOUF, BUTROS MD Attending Unavailable DAHLIA ZULETA MD Primary Care Unavailable DAHLIA ZULETA MD Consulting Unavailable PROVIDER, UNKNOWN Consulting Unavailable PROVIDER, UNKNOWN Consulting Unavailable PROVIDER, UNKNOWN Consulting Unavailable PROBLEMS PROBLEMS DATE TYPE CONDITION / CODE ATTENDING STATUS SOURCE 05/06/2018 Unknown C25.9 - Malignant Merritt Da Silva Active [place] neoplasm of [facility] [place] unspecified / Repository C25.9(ICD-10) 04/02/2018 Principle Type 2 diabetes DAHLIA ZULETA Active [facility] Diagnosis mellitus without [facility] complications / Hospital E119(ICD-10) Repository 04/02/2018 Secondary Essential (primary) LATOUDAHLIA Vines Active [facility] Diagnosis hypertension / [facility] I10(ICD-10) Hospital Repository 04/02/2018 Secondary Lipoprotein LATOUF, 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 / [facility] E786(ICD-10) Hospital Repository 04/01/2018 Admitting Malignant neoplasm CHRISTIAN WALLER Active [facility] diagnosis of pancreas, University unspecified / [facility] C25.9(ICD-10) Center Repository 04/01/2018 Admitting 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 Repository 01/07/2018 Admitting Cellulitis of right OLD, EDNA O Active [facility] diagnosis lower limb / University L03.115(ICD-10) [facility] Repository 12/10/2017 Admitting Follow-up / 145() CHRISTIAN WALLER Active [facility] diagnosis [facility] Repository 07/04/2017 Admitting Disease of TARA ELVIRA Active [facility] diagnosis pancreas, M University unspecified / [facility] K86.9(ICD-10) Center Repository PROCEDURES PROCEDURES No Procedure Records FoundRESULTS RESULTS ONCOLOGY VISIT REPORT Observed: 05/06/2018 Status: F Source[facility] [place] [facility] [address] [place] [address] OFFICE VISIT Date of Service: 05/06/18 1021 MR#: [id number] Acct: [id number] Name: CARINE ANTONIO Rep #: [id number] : 1955 From: Merritt Da Silva MD Age/Sex: 62/M Location: ONC Status: Signed Subjective - Date of Service Date of Service:: 05/06/18 - Chief Complaint F/U for Pancreatic cancer management/chemotherapy. - History of Present Illness 62y.o.man presented with weight loss. CT showed pancreatic mass in the tail with liver lesions, CA 19 9 was 170, CEA 40. Biopsy of the liver on 07/05/2017 showed infiltrating poorly differentiated carcinoma consistent with metastasis from primary pancreatic. PET/CT scan on 08/05/2017 showed disease involving pancreatic tail extending to the left kidney left adrenal gland and spleen with liver lesions, lymph nodes and probable left 12th rib. He started chemotherapy with Gemzar+Abraxane on 07/23/2017, he received 7 cycles, had progressive disease and on 02/04/2018 treatment was changed to FOLFIRINOX D1 AND 15, every 28 days on 02/04/2018. He was due for C4 D15 on 04/15/2018. He skipped treatment on that day. He started FOLFIRINOX q 2 wks therapy on 04/23/2017, comes for C2. Feels well. - Past Medical/Social History Past Medical History Cancer: Pancreatic cancer Social History Social History: No changes Smoking Status Former smoker Review of Systems Constitutional:: Denies: Fever, Sweats, Weight loss, Appetite change, Chills Cardiovascular:: Denies: Chest pain, Palpitations, Dyspnea on exertion, Orthopnea, PND, Shortness of breath Respiratory: Denies: Cough, Hemoptysis, Shortness of Breath, Wheezing Gastrointestinal:: Denies: Abdominal pain, Nausea, Vomiting, Diarrhea, Constipation, Hematochezia Genitourinary: Denies: Dysuria, Hematuria, 15, Flank pain Musculoskeletal:: Denies: Back pain, Myalgia, Arthralgia Skin: Denies: Rash, Skin Changes, Wounds Neurological:: Denies: Headache, Dizziness, Visual changes, Tinnitus, Hearing loss Psychiatric: Denies: Anxiety, Depression, Homicidal Ideations, Suicidal Ideations Vital Signs Height 5 ft 6 in Weight: 164.835 kg Weight in Pounds 363.4 lbs Pulse Ox 96 - Physical Exam General: Alert, Oriented x3, No apparent distress, - - Port R IC area. HEENT: Atraumatic, PERRLA, EOMI, Normocephalic Oropharynx:: Dry mucosa Neck:: Supple, Trachea midline. Negative for: JVD, bilateral Cardiac:: Regular rate, Regular rhythm, Normal S1, Normal S2. Negative for: Murmur Lungs: Clear to auscultation, Excusion symmetrical. Negative for: Rhonchi, Wheezes Abdomen:: Bowel sounds x 4, Soft, Non-tender, Non-distended. Negative for: Hepatosplenomegaly Extremities:: Negative for: Cyanosis, Edema Neurological: Neuro grossly intact Skin:: Negative for: Lesions, Rash, Petechiae, Ecchymosis Psychiatric:: Appropriate affect, Euthymic Lymphatics:: Negative for: Cervical lymphadenopathy, Supraclavicular lymphadenopathy, Axillary lymphadenopathy Laboratory Data: Laboratory Tests WBC 10.6 (4.4-11.0) K/mm3 RBC 3.52 L (4.6-6.2) M/mm3 Hgb 10.5 L (13.0-16.5) g/dl Hct 33.8 L (40-54) % MCV 96.0 H (80-94) fL Assessment and Plan Metastatic Pancreatic Cancer on FOLFIRINOX. Discussed therapy, risks,benefits and side effects again. Plan is to proceed with FOLFIRINOX C12 every 14 days with Neulasta today. RTC 2 weeks with CBC/CMP for C3. Medications: Prescriptions This Visit Medication Instructions Recorded Primary Care Provider: Dahlia Zuleta Referring Provider: - Problem List (1) Pancreatic cancer Status: Chronic Qualifiers: Pancreatic malignancy location: tail of pancreas Qualified Code(s): C25.2 - Malignant neoplasm of tail of pancreas Code Visit Office Visits / Consults: [id number] OV L5 Est 05/06/18 1026 <Electronically signed by Merritt Da Silva MD> Date Merritt Burris Signature: Date (if applicable) CC: CARBOHYDRATE AG 19-9 Collected: 05/06/2018 Status: F Source: [place] 9:55 AM [facility] REPOSITORY Order Comment: Reason for Laboratory Test . TYPE CODE TESTS RESULT OUT OF RANGE REFERENCE UNITS LAB L3100.5020 0-35 U/mL High CA 19-9 129 2261 Result Comment: [facility] Electrochemiluminescence Immunoassay (ECLIA) Values obtained with different assay methods or kits cannot be used interchangeably. Results cannot be interpreted as absolute evidence of the presence or absence of malignant disease. Performed at: [facility] [address] [id number] Computer Repairer: Uri Lombardi PhD, Phone: [phone] Performed By: #### L3100.5020 #### [facility] (refer to report for specific site) refer to report for address and phone number CBC W/DIFF, AUTOMATED Collected: 05/06/2018 Status: F Source: [place] 9:51 AM [facility] REPOSITORY TYPE CODE TESTS RESULT OUT OF RANGE REFERENCE UNITS LAB L100.1000 4.4-11.0 K/mm3 Normal WBC 10.6 LAB L100.1200 4.6-6.2 M/mm3 Low RBC 3.52 LAB L100.1300 13.0-16.5 g/dl Low HGB 10.5 LAB L100.1400 40-54 % Low HCT 33.8 LAB L100.1500 80-94 fL High MCV 96.0 LAB L100.1600 27.0-32.0 pg Normal MCH 29.8 LAB L100.1700 32-36 g/gl Low MCHC 31.1 LAB L100.1810 11.6-14.6 % High RDW CV 17.5 LAB L100.1820 35.1-43.9 fl High RDW SD 58.6 LAB L100.1900 150-450 K/mm3 Low PLT 122 LAB L100.2000 6.2-12.0 fl Normal MPV 10.6 LAB L100.2100 47-70 % High NEUT% 78.6 LAB L100.2200 19-41 % Low LY% 12.6 LAB L100.2300 0-10 % Normal MONO% 6.0 LAB L100.2400 0-5 % Normal EO% 1.6 LAB L100.2500 0-1 % Normal BASO% 0.6 LAB L100.2550 0.0-0.9 % Normal IM GRAN % 0.600 Result Comment: IG% - Immature Granulocytes (promyelocytes, myelocytes and metamyelocytes) > 1% indicates that a LEFT SHIFT is Present. LAB L100.2620 2.0-7.7 X10 3/uL High Absolute Neut 8.3 LAB L100.2720 0.83-4.51 X10 3/ul Normal Absolute Lymph 1.33 Performed By: #### L100.0100 #### [facility] [address] [place], [address] COMPREHENSIVE METABOLIC Collected: 05/06/2018 Status: F Source: [place] BERNARD 9:51 AM [facility] REPOSITORY Order Comment: Reason for Laboratory Test Chemotherapy TYPE CODE TESTS RESULT OUT OF RANGE REFERENCE UNITS LAB L501.0100 74-106 mg/dL High GLU 223 Result Comment: Glucose result greater than or equal to 200 mg/dL suggests DIABETES MELLITUS per A.D.A. criteria. Please note revised GLUCOSE reference range effective 2017. LAB L501.1000 7-18 mg/dL Normal BUN 16 LAB L501.1100 0.70-1.30 mg/dL Normal CREAT,SERUM 1.06 Result Comment: The validity of the calculated GFR AND GFRAA in patients over 70 years has not been determined. Clinical correlation is essential. LAB L501.1110 >60 mL/min Normal EST GFR 75 Result Comment: Non- GFR Calc LAB L501.1115 >60 mL/min Normal EST GFR - AA 91 Result Comment: GFR Calc LAB L501.1255 ml/min Normal Estimated CRCL 66.04 LAB L501.1300 10-20 RATIO Normal BUN/CRE 15.1 LAB L501.1500 6.4-8. g/dL Normal 2 T PROT 6.9 LAB L501.1800 3.2-5. g/dL Low 0 ALB 3.1 LAB L501.1950 2.2-4. g/dL Normal 2 GLOB 3.8 LAB L501.2000 0.9-2. RATIO Low 4 A/G 0.8 LAB L501.2200 8.5-10 mg/dL Normal .1 CA 8.9 LAB L501.4100 15-37 U/L Normal AST 22 LAB L501.4305 45-117 U/L Normal ALK P 75 LAB L501.4405 16-61 U/L Normal ALT 22 LAB L501.4600 0.20-1 mg/dL Normal .00 T BILI 0.40 LAB L501.5300 136-14 mmol/L Normal 5 NA 137 LAB L501.5600 3.5-5. mmol/L Normal 1 K 4.4 LAB L501.5900 98-107 mmol/L Normal CL 102 LAB L501.6100 21.0-3 mmol/L Normal 2.0 CO2 27.0 LAB L501.6200 5-15 Normal GAP 8 Performed By: #### L500.4050, L501.5200 #### [facility] [address] [place], [address] MAGNESIUM Collected: 05/06/2018 Status: F Source: [place] 9:51 AM [facility] REPOSITORY Order Comment: Reason for Laboratory Test Chemotherapy TYPE CODE TESTS RESULT OUT OF RANGE REFERENCE UNITS LAB L501.5200 1.6-2.6 mg/dL Normal MG 1.6 Performed By: #### L500.4050, L501.5200 #### [facility] [address] [place], [address] ONCOLOGY VISIT REPORT Observed: 04/23/2018 Status: F Source: [place] 9:28 AM [facility] REPOSITORY [facility] [address] [place] [id number] OFFICE VISIT Date of Service: 04/23/18909 MR#: [id number] Acct: [id number] Name: CARINE ANTONIO Rep #: [id number] : 1955 From: Merritt Da Silva MD Age/Sex: 62/M Location: OMD Status: Signed Subjective - Date of Service Date of Service:: 04/23/18 - Chief Complaint Tranferring care-Pancreatic cancer management. - History of Present Illness 62y.o.man presented with weight loss. CT showed pancreatic mass in the tail with liver lesions, CA 19 9 was 170, CEA 40. Biopsy of the liver on 07/05/2017 showed infiltrating poorly differentiated carcinoma consistent with metastasis from primary pancreatic. PET/CT scan on 08/05/2017 showed disease involving pancreatic tail extending to the left kidney left adrenal gland and spleen with liver lesions, lymph nodes and probable left 12th rib. He started chemotherapy with Gemzar+Abraxane on 07/23/2017, he received 7 cycles, had progressive disease and on 02/04/2018 treatment was changed to FOLFIRINOX D1 AND 15, every 28 days on 02/04/2018. He was due for C4 D15 on 04/15/2018. He skipped treatment on that day. He is here to continue therapy. - Past Medical/Social History Past Medical History Cancer: Pancreatic cancer Social History Social History: No changes Smoking Status Former smoker Review of Systems Constitutional:: Denies: Fever, Sweats, Weight loss, Appetite change, Chills Cardiovascular:: Denies: Chest pain, Palpitations, Dyspnea on exertion, Orthopnea, PND, Shortness of breath Respiratory: Denies: Cough, Hemoptysis, Shortness of Breath, Wheezing Gastrointestinal:: Denies: Abdominal pain, Nausea, Vomiting, Diarrhea, Constipation, Hematochezia Genitourinary: Denies: Dysuria, Hematuria, 15, Flank pain Musculoskeletal:: Denies: Back pain, Myalgia, Arthralgia Skin: Denies: Rash, Skin Changes, Wounds Neurological:: Denies: Headache, Dizziness, Visual changes, Tinnitus, Hearing loss Psychiatric: Denies: Anxiety, Depression, Homicidal Ideations, Suicidal Ideations Vital Signs Height 5 ft 6 in Weight: 164.835 kg Weight in Pounds 363.4 lbs Pulse Ox 96 - Physical Exam General: Alert, Oriented x3, No apparent distress, - - Port R IC area. Laboratory Data: Laboratory Tests WBC 8.6 (4.4-11.0) K/mm3 RBC 3.42 L (4.6-6.2) M/mm3 Hgb 10.0 L (13.0-16.5) g/dl Hct 32.4 L (40-54) % MCV 94.7 H (80-94) fL Assessment and Plan Metastatic Pancreatic Cancer on FOLFIRINOX, to continue therapy here in [facility].. Discussed therapy, risks,benefits and side effects again. Plan is to proceed with FOLFIRINOX C4D15 or C1 every 14 days here on 04/23/2017 with Neulasta. RTC 2 weeks with CBC/CMP for C2. Medications: Prescriptions This Visit Medication Instructions Recorded Primary Care Provider: Dahlia Zuleta Referring Provider: - Problem List (1) Pancreatic cancer Status: Chronic Qualifiers: Pancreatic malignancy location: tail of pancreas Qualified Code(s): C25.2 - Malignant neoplasm of tail of pancreas Code Visit Office Visits / Consults: 42945 OV L5 Est 04/23/18927 <Electronically signed by Merritt Da Silva MD> Date Merritt Da Silva MD Cosigner Signature: Date (if applicable) CC: CHRISTIAN Waller MD CBC W/DIFF, AUTOMATED Collected: 04/23/2018 Status: F Source: [place] 8:25 AM [facility] REPOSITORY TYPE CODE TESTS RESULT OUT OF RANGE REFERENCE UNITS LAB L100.1000 4.4-11.0 K/mm3 Normal WBC 8.6 LAB L100.1200 4.6-6.2 M/mm3 Low RBC 3.42 LAB L100.1300 13.0-16.5 g/dl Low HGB 10.0 LAB L100.1400 40-54 % Low HCT 32.4 LAB L100.1500 80-94 fL High MCV 94.7 LAB L100.1600 27.0-32.0 pg Normal MCH 29.2 LAB L100.1700 32-36 g/gl Low MCHC 30.9 LAB L100.1810 11.6-14.6 % High RDW CV 17.9 LAB L100.1820 35.1-43.9 fl High RDW SD 62.3 LAB L100.1900 150-450 K/mm3 Normal PLT 245 LAB L100.2000 6.2-12.0 fl Normal MPV 10.0 LAB L100.2100 47-70 % Normal NEUT% 67.3 LAB L100.2200 19-41 % Low LY% 13.8 LAB L100.2300 0-10 % High MONO% 12.2 LAB L100.2400 0-5 % High EO% 5.1 LAB L100.2500 0-1 % High BASO% 1.5 LAB L100.2550 0.0-0.9 % Normal IM GRAN % 0.100 Result Comment: IG% - Immature Granulocytes (promyelocytes, myelocytes and metamyelocytes) > 1% indicates that a LEFT SHIFT is Present. LAB L100.2620 2.0-7.7 X10 3/uL Normal Absolute Neut 5.8 LAB L100.2720 0.83-4.51 X10 3/ul Normal Absolute Lymph 1.19 Performed By: #### L100.0100 #### [facility] [address] [place], [address] COMPREHENSIVE METABOLIC Collected: 04/23/2018 Status: F Source: [facility] 8:25 AM [facility] REPOSITORY Order Comment: Reason for Laboratory Test Chemotherapy TYPE CODE TESTS RESULT OUT OF RANGE REFERENCE UNITS LAB L501.0100 74-106 mg/dL High GLU 191 Result Comment: Fasting Glucose result greater than or equal to 126 mg/dL suggests DIABETES MELLITUS per A.D.A. criteria. Please note revised GLUCOSE reference range effective 2017. LAB L501.1000 7-18 mg/dL Normal BUN 14 LAB L501.1100 0.70-1.30 mg/dL Normal CREAT,SERUM 0.97 Result Comment: The validity of the calculated GFR AND GFRAA in patients over 70 years has not been determined. Clinical correlation is essential. LAB L501.1110 >60 mL/min Normal EST GFR 83 Result Comment: Non- GFR Calc LAB L501.1115 >60 mL/min Normal EST GFR - AA 101 Result Comment: GFR Calc LAB L501.1255 ml/min Normal Estimated CRCL 72.17 LAB L501.1300 10-20 RATIO Normal BUN/CRE 14.4 LAB L501.1500 6.4-8. g/dL Normal 2 T PROT 6.9 LAB L501.1800 3.2-5. g/dL Low 0 ALB 3.0 LAB L501.1950 2.2-4. g/dL Normal 2 GLOB 3.9 LAB L501.2000 0.9-2. RATIO Low 4 A/G 0.8 LAB L501.2200 8.5-10 mg/dL Normal .1 CA 8.8 LAB L501.4100 15-37 U/L Normal AST 21 LAB L501.4305 45-117 U/L Normal ALK P 57 LAB L501.4405 16-61 U/L Normal ALT 19 LAB L501.4600 0.20-1 mg/dL Normal .00 T BILI 0.40 LAB L501.5300 136-14 mmol/L Normal 5 NA 139 LAB L501.5600 3.5-5. mmol/L Normal 1 K 4.3 LAB L501.5900 98-107 mmol/L Normal CL 100 LAB L501.6100 21.0-3 mmol/L Normal 2.0 CO2 29.0 LAB L501.6200 5-15 Normal GAP 10 Performed By: #### L500.4050, L501.5200 #### [facility] [address] [facility] [place], [address] MAGNESIUM Collected: 04/23/2018 Status: F Source: [place] 8:25 AM [facility] REPOSITORY Order Comment: Reason for Laboratory Test Chemotherapy TYPE CODE TESTS RESULT OUT OF RANGE REFERENCE UNITS LAB L501.5200 1.6-2.6 mg/dL Normal MG 1.6 Performed By: #### L500.4050, L501.5200 #### [facility] [address] [place], [address] ONCOLOGY CONSULTATION Observed: 04/11/2018 Status: F Source: [place] 11:37 AM [facility] REPOSITORY [facility] [address] [place] [address] Oncology Consultation Date of Service: 04/08/18 0937 MR#: [id number] Acct: [id number] Name: CARINE ANTONIO Rep #: [id number] : 1955 From: Merritt Da Silva MD Age/Sex: 62/M Location: OMD Status: Signed Consult Referring Physician: Dr. Marilyn Waller Consult Results: Metastatic Pancreatic Cancer. Subjective Date of Service:: 04/08/18 Chief Complaint: Tranferring care-Pancreatic cancer management. History of Present Illness: 62y.o.man presented with weight loss. CT showed pancreatic mass in the tail with liver lesions, CA 19 9 was 170, CEA 40. Biopsy of the liver on 07/05/2017 showed infiltrating poorly differentiated carcinoma consistent with metastasis from primary pancreatic. PET/CT scan on 08/05/2017 showed disease involving pancreatic tail extending to the left kidney left adrenal gland and spleen with liver lesions, lymph nodes and probable left 12th rib. He started chemotherapy with Gemzar+Abraxane on 07/23/2017, he received 7 cycles, had progressive disease and on 02/04/2018 treatment was changed to FOLFIRINOX D1 AND 15, every 28 days on 02/04/2018. He will be due for C4 D15 on 04/15/2018. He wants to skip treatment on that day. Health History: Past Medical History Cancer: Pancreatic cancer Past Medical History (Last Updated 04/08/18 @ 08:57 by Kelly Santos) history of heart cath (Acute) Hypertension (Chronic) Anxiety (Acute) Diabetes (Acute) GERD (gastroesophageal reflux disease) (Acute) Pulmonary embolism (Acute) Family History (Last Updated 04/03/18 @ 14:53 by Kelly Santos) Sister Breast cancer Father Heart disease Allergies/Adverse Reactions: Allergy/AdvReac Type Severity Reaction Status Date / Time No Known Allergies Allergy Verified 04/08/18 08:41 Review of Systems Constitutional:: Denies: Fever, Sweats, Weight loss, Appetite change, Chills Cardiovascular:: Denies: Chest pain, Palpitations, Dyspnea on exertion, Orthopnea, PND, Shortness of breath Respiratory: Denies: Cough, Hemoptysis, Shortness of Breath, Wheezing Gastrointestinal:: Denies: Abdominal pain, Nausea, Vomiting, Diarrhea, Constipation, Hematochezia Genitourinary: Denies: Dysuria, Hematuria, 15, Flank pain Musculoskeletal:: Denies: Back pain, Myalgia, Arthralgia Skin: Denies: Rash, Skin Changes, Wounds Neurological:: Denies: Headache, Dizziness, Visual changes, Tinnitus, Hearing loss Psychiatric: Denies: Anxiety, Depression, Homicidal Ideations, Suicidal Ideations Vital Signs Height 5 ft 6 in Weight: 161.751 kg Weight in Pounds 356.6 lbs - Physical Exam General: Alert, Oriented x3, No apparent distress HEENT: Atraumatic, PERRLA, EOMI, Normocephalic Oropharynx:: Dry mucosa Neck:: Supple, Trachea midline. Negative for: JVD, bilateral Cardiac:: Regular rate, Regular rhythm, Normal S1, Normal S2. Negative for: Murmur Lungs: Clear to auscultation, Excusion symmetrical. Negative for: Rhonchi, Wheezes Abdomen:: Bowel sounds x 4, Soft, Non-tender, Non-distended. Negative for: Hepatosplenomegaly Extremities:: Negative for: Cyanosis, Edema Neurological: Neuro grossly intact Skin:: Negative for: Lesions, Rash, Petechiae, Ecchymosis Psychiatric:: Appropriate affect, Euthymic Lymphatics:: Negative for: Cervical lymphadenopathy, Supraclavicular lymphadenopathy, Axillary lymphadenopathy Assessment and Plan Metastatic Pancreatic Cancer on FOLFIRINOX due for C4 04/15/2018. Discussed therapy, risks,benefits and side effects again. He wants a break around the holidays so will start therapy on 04/23/2017. Plan is to resume FOLFIRINOX C4D15 or C1 every 14 days here on 04/23/2017. Medications: Prescriptions This Visit Medication Instructions Recorded ALPRAZolam [Xanax] 04/03/18 Apixaban [Eliquis] 5 mg PO 04/03/18 Cyanocobalamin [Vitamin B12] 500 mcg PO 04/03/18 Primary Care Provider: Dahlia Zuleta Referring Provider: - Problem List (1) Pancreatic cancer Status: Chronic Qualifiers: Pancreatic malignancy location: tail of pancreas Qualified Code(s): C25.2 - Malignant neoplasm of tail of pancreas Code Visit Office Visits / Consults: 46297 OP Consult L5 04/11/18 1137 <Electronically signed by Merritt Da Silva MD> Date Merritt Da Silva MD Cosigner Signature: Date (if applicable) CC: Dahlia Zuleta; CHRISTIAN Waller MD SURG PATH ADD-ON Observed: 04/04/2018 Status: F Source: [facility] ORDER 8:54 AM [facility] REPOSITORY Test will be added on to an earlier surg path specimen Tissue has been submitted to testing laboratory. Performed By: #### SPAOB #### [facility] [address] [place] [address] [address] [place] [address] CBC WITH DIFF EAST Collected: 04/01/2018 Status: F Source: [facility] 8:28 AM [facility] REPOSITORY TYPE CODE TESTS RESULT OUT OF [...] Lymph 1.09 LAB AMONO 0.24-0.93 K/uL Abs [place] 0.68 LAB AEOS 0.00-0.48 K/uL Abs Eos 0.09 LAB ABASO 0.00-0.09 K/uL Abs Baso 0.07 Performed By: #### CBCDFE, CHM6E, GLUE, LIVPE #### [address] [address] #### CEA, CA199 #### [facility] [id number] [place] [address] CHEM 6 - UHE Collected: 04/01/2018 Status: F Source: [facility] 8:28 AM [facility] REPOSITORY TYPE CODE TESTS RESULT OUT OF [...] GFR >60 mL/min/1.73 sqM Est GFR,non >60 Faroese LAB GFRA >60 mL/min/1.73 sqM Est GFR, >60 Performed By: #### CBCDFE, CHM6E, GLUE, LIVPE #### [address] [address] #### CEA, CA199 #### [facility] [address] [address] GLUCOSE - UHE Collected: 04/01/2018 Status: F Source: [facility] 8:28 [facility] REPOSITORY TYPE CODE TESTS RESULT OUT OF REFERENCE UNITS RANGE LAB GLUC 70-99 mg/dL High Glucose 306 Performed By: #### CBCDFE, CHM6E, GLUE, LIVPE #### [address] [address] #### CEA, CA199 #### [facility] [address] [place] [address] LIVER PROFILE - E Collected: 04/01/2018 Status: F Source: [facility] 8:28 AM [facility] REPOSITORY TYPE CODE TESTS RESULT OUT OF [...] By: #### CBCDFE, CHM6E, GLUE, LIVPE #### [place] [address] #### CEA, CA199 #### [facility] [address] [place] [address] [place] [address] CEA Collected: 04/01/2018 Status: F Source: [facility] 8:28 [facility] REPOSITORY TYPE CODE TESTS RESULT OUT OF RANGE REFERENCE UNITS LAB CEA 0-5.0 ng/mL High CEA 93.5 Performed By: #### CBCDFE, CHM6E, GLUE, LIVPE #### [place] [id number] #### CEA, CA199 #### [facility] [address] [place] [address] [place] [address] CA 19-9 Collected: 04/01/2018 Status: F Source: [facility] 8:28 AM [facility] REPOSITORY TYPE CODE TESTS RESULT OUT OF RANGE REFERENCE UNITS LAB CA199 0-37.00 U/mL High CA 19-9 204.47 Performed By: #### CBCDFE, CHM6E, GLUE, LIVPE #### [place] [address] #### CEA, CA199 #### [facility] [address] [place] [address] [facility] [address] [place], [place] [address] CBC WITH DIFF EAST Collected: 03/18/2018 Status: F Source: [facility] 9:37 AM [facility] REPOSITORY TYPE CODE TESTS RESULT OUT OF [...] Lymph 1.27 LAB AMONO 0.24-0.93 K/uL Abs [place] 0.57 LAB AEOS 0.00-0.48 K/uL Abs Eos 0.14 LAB ABASO 0.00-0.09 K/uL Abs Baso 0.06 Performed By: #### CBCDFE #### [place] [id number] CBC WITH DIFF EAST Collected: 03/04/2018 Status: F Source: [facility] 8:30 AM [facility] REPOSITORY TYPE CODE TESTS RESULT OUT OF [...] Lymph 1.34 LAB AMONO 0.24-0.93 K/uL Abs [place] 0.73 LAB AEOS 0.00-0.48 K/uL Abs Eos 0.06 LAB ABASO 0.00-0.09 K/uL Abs Baso 0.07 Performed By: #### CBCDFE, CHM6E, GLUE, LIVPE #### [facility] [address] [place], [place] [address] #### CA199, CEA #### [facility] [address] [address] [facility] [address] [place], [place] [address] CHEM 6 - UHE Collected: 03/04/2018 Status: F Source: [facility] 8:30 AM [facility] REPOSITORY TYPE CODE TESTS RESULT OUT OF [...] GFR >60 mL/min/1.73 sqM Est GFR,non >60 Faroese LAB GFRA >60 mL/min/1.73 sqM Est GFR, >60 Performed By: #### CINDA, JESUSM6E, GLUE, LIVPE #### [place] [address] #### CA199, CEA #### [place] [address] GLUCOSE - UHE Collected: 03/04/2018 Status: F Source: [facility] 8:30 AM [facility] REPOSITORY TYPE CODE TESTS RESULT OUT OF REFERENCE UNITS RANGE LAB GLUC 70-99 mg/dL High Glucose 249 Performed By: #### CBCDFE, CHM6E, GLUE, LIVPE #### [place] [address] #### CA199, CEA #### [place] [address] LIVER PROFILE - UHE Collected: 03/04/2018 Status: F Source: [facility] 8:30 [facility] REPOSITORY TYPE CODE TESTS RESULT OUT [...] By: #### CBCDFE, CHM6E, GLUE, LIVPE #### [address] [address] #### CA199, CEA #### [facility] [address] [address] [facility] [address] [place] [address] CA 19-9 Collected: 03/04/2018 Status: F Source: [facility] 8:30 AM [facility] REPOSITORY TYPE CODE TESTS RESULT OUT OF RANGE REFERENCE UNITS LAB CA199 0-37.00 U/mL High CA 19-9 188.32 Performed By: #### CBCDFE, CHM6E, GLUE, LIVPE #### [address] [address] #### CA199, CEA #### [facility] [address] [address] [facility] [address] [place] [address] CEA Collected: 03/04/2018 Status: F Source: [facility] 8:30 AM [facility] REPOSITORY TYPE CODE TESTS RESULT OUT OF RANGE REFERENCE UNITS LAB CEA 0-5.0 ng/mL High CEA 129.4 Performed By: #### CBCDFE, CHM6E, GLUE, LIVPE #### [address] [address] #### CA199, CEA #### [facility] [address] [address] [facility] [address] [place] [address] CBC WITH DIFF EAST Collected: 02/18/2018 Status: F Source: [facility] 8:40 AM [facility] REPOSITORY TYPE CODE TESTS RESULT OUT OF [...] Lymph 1.37 LAB AMONO 0.30-0.82 K/uL Abs [place] 0.61 LAB AEOS <0.55 K/uL Abs Eos 0.22 LAB ABASO <0.09 K/uL Abs Baso 0.09 High Performed By: #### CBCDFE #### [address] [address] CHEM 6 - UHE Collected: 02/04/2018 Status: F Source: [facility] 8:30 AM [facility] REPOSITORY TYPE CODE TESTS RESULT OUT OF [...] GFR >60 mL/min/1.73 sqM Est GFR,non >60 Faroese LAB GFRA >60 mL/min/1.73 sqM Est GFR, >60 Performed By: #### CHM6E, LIVPE, CBCDFE #### [address] [address] #### CEA, CA199 #### [facility] [address] [place] [address] [address] [facility] [address] [place], [place] [address] LIVER PROFILE - E Collected: 02/04/2018 Status: F Source: [facility] 8:30 AM [facility] REPOSITORY TYPE CODE TESTS RESULT OUT OF REFERENCE UNITS RANGE LAB ALT 10-52 U/L ALT 14 LAB AST 14-40 U/L AST 20 LAB ALB 3.5-5.0 g/dL Albumin 3.6 LAB ALP 32-126 U/L Low Alkaline Phosphatase 31 LAB BILD <0.3 mg/dL Bilirubin Direct 0.1 LAB BILT <1.5 mg/dL Bilirubin Total 0.4 LAB TP 6.4-8.3 g/dL Total Protein 6.6 Performed By: #### CHM6E, LIVALICIA, CBCDFE #### [facility] [address] [place], [place] [address] #### CEA, CA199 #### [facility] [address] [place] [address] [place] [address] CBC WITH DIFF EAST Collected: 02/04/2018 Status: F Source: [facility] 8:30 AM [facility] REPOSITORY TYPE CODE TESTS RESULT OUT OF [...] 1.14 Low LAB AMONO 0.30-0.82 K/uL Abs [place] 0.67 LAB AEOS <0.55 K/uL Abs Eos 0.29 LAB ABASO <0.09 K/uL Abs Baso 0.00 LAB POLYCH POLYCHROMASIA 1+ LAB PLTEST PLATELET ESTIMATE Automated platelet count confirmed by manual slide review. LAB RMORPH Red Cell RBC Morphology indices confirmed by manual smear review. Performed By: #### SHAWNA GILLIS CBCDFE #### [place] [address] #### CEA, CA199 #### [place] [address] CEA Collected: 02/04/2018 Status: F Source: [facility] 8:30 [facility] REPOSITORY TYPE CODE TESTS RESULT OUT OF RANGE REFERENCE UNITS LAB CEA 0-5.0 ng/mL High CEA 74.0 Performed By: #### SHAWNA GILLIS CBCDFE #### [place] [address] #### CEA, CA199 #### [place] [address] CA 19-9 Collected: 02/04/2018 Status: F Source: [facility] 8:30 AM [facility] REPOSITORY TYPE CODE TESTS RESULT OUT OF RANGE REFERENCE UNITS LAB CA199 0-37.00 U/mL High CA 19-9 87.81 Performed By: #### SINAN6SHAWNA Ibarra CBCDFE #### [address] [address] #### CEA, CA199 #### [id number] [place] [address] CT CHEST WITH Observed: 01/27/2018 Status: F Source: [facility] 3:40 PM [facility] REPOSITORY EXAM: CT CHEST WITH CONTRAST, 01/27/2018 [...] F Source: [facility] 2:31 PM [facility] REPOSITORY EXAM: CT ABDOMEN/PELVIS WITH CONTRAST, 01/27/2018 [...] numbers are related to this dose report {[id number]}: [id number] The dose indicators for CT are the [...] DIFF EAST Collected: 01/21/2018 Status: F Source: [facility] 9:43 AM [facility] REPOSITORY TYPE CODE TESTS RESULT OUT OF [...] 1.03 Low LAB AMONO 0.30-0.82 K/uL Abs [place] 1.03 High LAB AEOS <0.55 K/uL Abs Eos 0.33 LAB ABASO <0.09 K/uL Abs Baso 0.06 Performed By: #### CBCDFE #### [address] [address] CBC WITH DIFF EAST Collected: 01/07/2018 Status: F Source: [facility] 8:31 AM [facility] REPOSITORY TYPE CODE TESTS RESULT OUT OF [...] 1.02 Low LAB AMONO 0.30-0.82 K/uL Abs [place] 0.87 High LAB AEOS <0.55 K/uL Abs Eos 0.26 LAB ABASO <0.09 K/uL Abs Baso 0.07 Performed By: #### CINDA, SINAN6Stacey, LIVALICIA #### [place] [address] #### CEA, CA199 #### [place] [address] CHEM 6 - UHE Collected: 01/07/2018 Status: F Source: [facility] 8:31 AM [facility] REPOSITORY TYPE CODE TESTS RESULT OUT OF [...] GFR >60 mL/min/1.73 sqM Est GFR,non >60 Faroese LAB GFRA >60 mL/min/1.73 sqM Est GFR, >60 Performed By: #### CINDA, JESUSM6E, LIVPE #### [place] [address] #### CEA, CA199 #### [place] [address] LIVER PROFILE - UHE Collected: 01/07/2018 Status: F Source: [facility] 8:31 AM [facility] REPOSITORY TYPE CODE TESTS RESULT OUT OF [...] Performed By: #### CBCDFE, CHM6E, LIVPE #### [address] [address] #### CEA, CA199 #### [facility] [address] [address] CEA Collected: 01/07/2018 Status: F Source: [facility] 8:31 AM [facility] REPOSITORY TYPE CODE TESTS RESULT OUT OF RANGE REFERENCE UNITS LAB CEA 0-5.0 ng/mL High CEA 44.2 Performed By: #### CBCDFE, CHM6E, LIVPE #### [address] [address] #### CEA, CA199 #### [address] [place] [address] CA 19-9 Collected: 01/07/2018 Status: F Source: [facility] 8:31 AM [facility] REPOSITORY TYPE CODE TESTS RESULT OUT OF RANGE REFERENCE UNITS LAB CA199 0-37.00 U/mL High CA 19-9 59.91 Performed By: #### CBCDFE, CHM6E, LIVPE #### [address] [address] #### CEA, CA199 #### [address] [place] [address] CBC WITH DIFF EAST Collected: 12/24/2017 Status: F Source: [facility] 9:49 AM [facility] REPOSITORY TYPE CODE TESTS RESULT OUT OF [...] 1.02 Low LAB AMONO 0.30-0.82 K/uL Abs [place] 0.85 High LAB AEOS <0.55 K/uL Abs Eos 0.21 LAB ABASO <0.09 K/uL Abs Baso 0.05 Performed By: #### CBCDFE #### [address] [address] CBC WITH DIFF EAST Collected: 12/10/2017 Status: F Source: [facility] 8:50 AM [facility] REPOSITORY TYPE CODE TESTS RESULT OUT OF [...] 0.91 Low LAB AMONO 0.30-0.82 K/uL Abs [place] 0.67 LAB AEOS <0.55 K/uL Abs Eos 0.16 LAB ABASO <0.09 K/uL Abs Baso 0.04 Performed By: #### CBCDFE, CHM6E, LIVPE #### [address] [address] #### CEA, CA199 #### [facility] [place] [address] [place], [place] [address] CHEM 6 - UHE Collected: 12/10/2017 Status: F Source: [facility] 8:50 AM [facility] REPOSITORY TYPE CODE TESTS RESULT OUT OF [...] GFR >60 mL/min/1.73 sqM Est GFR,non >60 Far[place]ese LAB GFRA >60 mL/min/1.73 sqM Est GFR, >60 Performed By: #### CBCDFE, CHM6E, LIVPE #### [address] [address] #### CEA, CA199 #### [facility] [address] [place] [address] LIVER PROFILE - E Collected: 12/10/2017 Status: F Source: [facility] 8:50 AM [facility] REPOSITORY TYPE CODE TESTS RESULT OUT OF [...] Performed By: #### CBCDFE, CHM6E, LIVPE #### [address] [address] #### CEA, CA199 #### [facility] [address] [place] [address] CEA Collected: 12/10/2017 Status: F Source: [facility] 8:50 AM [facility] REPOSITORY TYPE CODE TESTS RESULT OUT OF RANGE REFERENCE UNITS LAB CEA 0-5.0 ng/mL High CEA 18.0 Performed By: #### CBCDFE, CHM6E, LIVPE #### [address] [address] #### CEA, CA199 #### [facility] [address] [place] [address] CA 19-9 Collected: 12/10/2017 Status: F Source: [facility] 8:50 AM [facility] REPOSITORY TYPE CODE TESTS RESULT OUT OF RANGE REFERENCE UNITS LAB CA199 0-37.00 U/mL High CA 19-9 72.76 Performed By: #### CBCDFE, CHM6E, LIVPE #### [facility] [address] [place], [place] [address] #### CEA, CA199 #### [facility] [address] [place] [address] [facility] [address] [place], [place] [address] CBC WITH DIFF EAST Collected: 11/26/2017 Status: F Source: [facility] 9:58 AM [facility] REPOSITORY TYPE CODE TESTS RESULT OUT OF [...] 0.88 Low LAB AMONO 0.30-0.82 K/uL Abs [place] 0.71 LAB AEOS <0.55 K/uL Abs Eos 0.16 LAB ABASO <0.09 K/uL Abs Baso <0.04 Performed By: #### CBCDFE #### [place] [id number] CBC WITH DIFF EAST Collected: 11/12/2017 Status: F Source: [facility] 10:02 AM [facility] REPOSITORY TYPE CODE TESTS RESULT OUT OF [...] 0.93 Low LAB AMONO 0.30-0.82 K/uL Abs [place] 0.63 LAB AEOS <0.55 K/uL Abs Eos 0.15 LAB ABASO <0.09 K/uL Abs Baso 0.04 Performed By: #### CBCDFE, CHM6E, LIVPE #### [address] [address] #### CEA, CA199 #### [facility] [address] [place], [place] [address] [facility] [address] [place] [address] CHEM 6 - UHE Collected: 11/12/2017 Status: F Source: [facility] 10:02 AM [facility] REPOSITORY TYPE CODE TESTS RESULT OUT OF [...] GFR >60 mL/min/1.73 sqM Est GFR,non >60 Faroese LAB GFRA >60 mL/min/1.73 sqM Est GFR, >60 Performed By: #### CBCDFE, CHM6E, LIVPE #### [place] [address] #### CEA, CA199 #### [place] [address] LIVER PROFILE - UHE Collected: 11/12/2017 Status: F Source: [facility] 10:02 [facility] REPOSITORY TYPE CODE TESTS RESULT OUT [...] Performed By: #### CBCDFE, CHM6E, LIVPE #### [place] [address] #### CEA, CA199 #### [place] [address] CEA Collected: 11/12/2017 Status: F Source: [facility] 10:02 AM [facility] REPOSITORY TYPE CODE TESTS RESULT OUT OF RANGE REFERENCE UNITS LAB CEA 0-5.0 ng/mL High CEA 11.5 Performed By: #### CBCDFE, CHM6E, LIVPE #### [address] [address] #### CEA, CA199 #### [facility] [address] [address] [facility] [address] [place] [address] CA 19-9 Collected: 11/12/2017 Status: F Source: [facility] 10:02 AM [facility] REPOSITORY TYPE CODE TESTS RESULT OUT OF RANGE REFERENCE UNITS LAB CA199 0-37.00 U/mL High CA 19-9 85.20 Performed By: #### CBCDFE, CHM6E, LIVPE #### [address] [address] #### CEA, CA199 #### [facility] [address] [place] [id number] CBC WITH DIFF EAST Collected: 10/29/2017 Status: F Source: [facility] 8:24 AM [facility] REPOSITORY TYPE CODE TESTS RESULT OUT OF [...] 0.89 Low LAB AMONO 0.30-0.82 K/uL Abs Salinas 0.76 LAB AEOS <0.55 K/uL Abs Eos 0.12 LAB ABASO <0.09 K/uL Abs Baso 0.04 Performed By: #### CBCDFE #### [place] [address] CT ABDOMEN/PELVIS WITH Observed: 10/23/2017 Status: F Source: [facility] CONTRAST 1:03 PM [facility] REPOSITORY EXAM: CT ABDOMEN/PELVIS WITH CONTRAST, 10/21/2017 [...] numbers are related to this dose report {[id number]}: [id number] The dose indicators for CT are the [...] heterogeneous hypoattenuating hepatic lesions and masses seen. 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 [employer] lesions include: * Heterogeneously hypoattenuating left hepatic [...] F Source: [facility] 11:52 AM [facility] REPOSITORY EXAM: CT CHEST WITH CONTRAST, 10/21/2017 [...] numbers are related to this dose report {[id number]}: [id number] The dose indicators for CT are the [...] DIFF EAST Collected: 10/15/2017 Status: F Source: [facility] 8:40 AM [facility] REPOSITORY TYPE CODE TESTS RESULT OUT OF [...] 0.88 Low LAB AMONO 0.30-0.82 K/uL Abs [place] 0.68 LAB AEOS <0.55 K/uL Abs Eos 0.11 LAB ABASO <0.09 K/uL Abs Baso <0.04 Performed By: #### ELIS LOO, LIVPE #### [place] [address] #### JODI CA199 #### [facility] [id number] [place] [address] [place] [address] CHEM 6 - UHE Collected: 10/15/2017 Status: F Source: [facility] 8:40 AM [facility] REPOSITORY TYPE CODE TESTS RESULT OUT OF [...] GFR >60 mL/min/1.73 sqM Est GFR,non >60 Faroese LAB GFRA >60 mL/min/1.73 sqM Est GFR, >60 Performed By: #### CBCDFStacey, CHM6E, LIVPE #### [place] [address] #### CEA, CA199 #### [facility] [address] [address] [facility] [address] [place] [address] LIVER PROFILE - UHE Collected: 10/15/2017 Status: F Source: [facility] 8:40 AM [facility] REPOSITORY TYPE CODE TESTS RESULT OUT OF REFERENCE UNITS RANGE LAB ALT 10-52 U/L ALT 13 LAB AST 14-40 U/L AST 14 LAB ALB 3.5-5.0 g/dL Albumin 3.5 LAB ALP 32-126 U/L Low Alkaline Phosphatase 27 LAB BILD <0.3 mg/dL Bilirubin Direct 0.1 LAB BILT <1.5 mg/dL Bilirubin Total 0.3 LAB TP 6.4-8.3 g/dL Low Total Protein 6.1 Performed By: #### BERNAE, CHM6E, LIVPE #### [place] [address] #### CEA, CA199 #### [facility] [address] [address] CEA Collected: 10/15/2017 Status: F Source: [facility] 8:40 AM [facility] REPOSITORY TYPE CODE TESTS RESULT OUT OF RANGE REFERENCE UNITS LAB CEA 0-5.0 ng/mL High CEA 12.0 Performed By: #### CBCDFE, CHM6E, LIVPE #### [address] [address] #### CEA, CA199 #### [facility] [address] 410 [place] [id number] [place] 19-9 Collected: 10/15/2017 Status: F Source: [facility] 8:40 AM [facility] REPOSITORY TYPE CODE TESTS RESULT OUT OF RANGE REFERENCE UNITS LAB CA199 0-37.00 U/mL High CA 19-9 133.42 Performed By: #### CBCDFE, CHM6E, LIVPE #### [address] [address] #### CEA, CA199 #### [facility] [address] [facility] [address] [place], [place] [address] CBC WITH DIFF EAST Collected: 10/01/2017 Status: F Source: [facility] 9:00 AM [facility] REPOSITORY TYPE CODE TESTS RESULT OUT OF [...] 0.96 Low LAB AMONO 0.30-0.82 K/uL Abs [place] 0.61 LAB AEOS <0.55 K/uL Abs Eos 0.13 LAB ABASO <0.09 K/uL Abs Baso 0.05 Performed By: #### CBCDFE #### [address] [address] CBC WITH DIFF EAST Collected: 09/17/2017 Status: F Source: [facility] 10:11 AM [facility] REPOSITORY TYPE CODE TESTS RESULT OUT OF [...] 1.10 Low LAB AMONO 0.30-0.82 K/uL Abs [place] 0.73 LAB AEOS 0.04-0.54 K/uL Abs Eos 0.14 LAB ABASO 0.01-0.08 K/uL Abs Baso 0.06 Performed By: #### CBCDFE, CHM6E, LIVPE #### [address] [address] #### CEA, CA199 #### [facility] [address] [place] [address] [facility] [address] [place] [id number] CHEM 6 - UHE Collected: 09/17/2017 Status: F Source: [facility] 10:11 AM [facility] REPOSITORY TYPE CODE TESTS RESULT OUT OF [...] GFR >60 mL/min/1.73 sqM Est GFR,non >60 Faroese LAB GFRA >60 mL/min/1.73 sqM Est GFR, >60 Performed By: #### CBCDFE, CHM6E, LIVPE #### [address] [address] #### CEA, CA199 #### [place] [address] LIVER PROFILE - E Collected: 09/17/2017 Status: F Source: [facility] 10:11 AM [facility] REPOSITORY TYPE CODE TESTS RESULT OUT OF REFERENCE UNITS RANGE LAB ALT 10-52 U/L ALT 12 LAB AST 14-40 U/L AST 15 LAB ALB 3.5-5.0 g/dL Albumin 3.6 LAB ALP 32-126 U/L Low Alkaline Phosphatase 24 LAB BILD <0.3 mg/dL Bilirubin Direct 0.2 LAB BILT <1.5 mg/dL Bilirubin Total 0.4 LAB TP 6.4-8.3 g/dL Low Total Protein 6.3 Performed By: #### CBCDFE, JESUSM6E, LIVPE #### [address] [address] #### CEA, CA199 #### [place] [address] CEA Collected: 09/17/2017 Status: F Source: [facility] 10:11 AM [facility] REPOSITORY TYPE CODE TESTS RESULT OUT OF RANGE REFERENCE UNITS LAB CEA 0-5.0 ng/mL High CEA 16.1 Performed By: #### CBCDFE, CHM6E, LIVPE #### [address] [address] #### CEA, CA199 #### [facility] [address] [place], [place] [address] CA 19-9 Collected: 09/17/2017 Status: F Source: [facility] 10:11 AM [facility] REPOSITORY TYPE CODE TESTS RESULT OUT OF RANGE REFERENCE UNITS LAB CA199 0-37.00 U/mL High CA 19-9 166.54 Performed By: #### CBCDFE, CHM6E, LIVPE #### [facility] [address] [place], [place] [address] #### CEA, CA199 #### [facility] [address] [place] [address] [address] [facility] [address] [place], [place] [address] EMERGENCY REPORT Observed: 09/05/2017 Status: F Source: [facility] 8:38 AM [facility] EMERGENCY ROOM REPORT NAME ACCOUNT SEX AGE ADMIT DISCHARGE PT MED. RECORD# NUMBER DATE DATE TYPE PACO [id number] Lili 61 08/27/17 08/27/17 3 CARINE Valdez [id number] ROOM: ER DATE OF : 1955 DICTATING [...] not had fever or chills, but his dance entertainer, oncologist recommended that he be evaluated for [...] Esvin Ryan MD 08/27/17 20:39 JOB #: [id number] Transcribed By: roberto 08/28/17 13:38 Electronically signed by: GLENNA Ryan M.D. 09/05/17 08:35 Page 2 of 2 CARINE ANTONIO Emergency Room Report CBC WITH DIFF EAST Collected: 09/03/2017 Status: F Source: [facility] 8:55 AM [facility] REPOSITORY TYPE CODE TESTS RESULT OUT OF [...] 1.06 Low LAB AMONO 0.30-0.82 K/uL Abs [place] 0.63 LAB AEOS 0.04-0.54 K/uL Abs Eos 0.23 LAB ABASO 0.01-0.08 K/uL Abs Baso 0.04 Performed By: #### CBCDFE #### [place] [address] CV VENOUS LEG RT Observed: 08/28/2017 Status: F Source: [facility] 11:06 AM [place] [address] Patient: CARINE ANTONIO Phone#: : 1955 Age: 61 Gender: M Pt. Type: Out Account: [id number] Location: [facility] Ordering: DAHLIA ZULETA Exam Date: 08/28/2017/10:07 Family Phys: DEEDEE JESUS Charge Code: 583161 Physician: Aurora Order #: [id number] DLP Dose#: PROCEDURE: VENOUS DOPPLER RT LEG COMPARISON: [facility], VENOUS DOPPLER RT LEG, 01/15/2016, 9:42. INDICATIONS: Cellulitis and leg pain TECHNIQUE: Color duplex Doppler ultrasound evaluation analysis was performed in the usual manner. EVENTS DIRECTOR: NOEMI RISK FACTORS FOR VENOUS DISEASE: Other [...] V + GSV o GASTROC SOLEAL V EVENTS DIRECTOR'S NOTES: Continued Report - Page 2 of 2 Patient: CARINE ANTONIO Phone#: : 1955 Age: 61 Gender: M Pt. Type: Out Account: [id number] Location: [facility] Ordering: DAHLIA ZULETA Exam Date: 08/28/2017/10:07 Family Phys: DEEDEE JESUS Charge Code: 943121 Physician: Aurora Order #: [id number] DLP Dose#: Preliminary results called to SONIA Glasgow in ED at 10:[address] [facility] at 10:53. Right calf veins difficult to [...] 11:50 CBC Collected: 08/27/2017 Status: F Source: [facility] 7:20 PM [facility] REPOSITORY TYPE CODE TESTS RESULT OUT [...] 7.10 x10EE3/U L Neut # 4.50 LAB [place] #(LOINC) 0.20 - 1.00 x10EE3/U L [place] # 0.60 LAB EO #(LOINC) 0.00 - 0.50 x10EE3/U L EO # 0.10 LAB Baso #(LOINC) 0.00 - 0.10 x10EE3/U L Baso # 0.10 LAB MANUAL DIFF(LOINC) MANUAL DIFF N/A LAB MORPHOLOGY(LOINC ) MORPHOLOGY N/A Result Comment: {CD] Performed By: #### [id number] #### [facility],[address] [place] [address] LACTATE Collected: 08/27/2017 Status: F Source: [facility] 7:20 PM [facility] REPOSITORY TYPE CODE TESTS RESULT OUT OF REFERENCE UNITS RANGE LAB LACTATE(GEORGE 4.5 - 18.0 mg/dL NC) High LACTATE 22.2 Performed By: #### [id number] #### [facility],[address] [place] [address] CMP WITH EGFR Collected: 08/27/2017 Status: F Source: [facility] 7:20 PM [facility] REPOSITORY TYPE CODE TESTS RESULT OUT [...] OF AGE AND OLDER. Performed By: #### [id number] #### [facility],[address] [place], [place] [id number] C-REACTIVE PROTEIN Collected: 08/27/2017 Status: F Source: [facility] 7:20 PM [facility] REPOSITORY TYPE CODE TESTS RESULT OUT OF RANGE REFERENCE UNITS LAB CRP(LOINC) 0.00 - 1.00 mg/dl High CRP 8.00 Performed By: #### [id number] #### [facility],[address] [place], [place] [id number] D-DIMER, QUANTITATIVE Collected: 08/27/2017 Status: F Source: [facility] 7:20 [facility] REPOSITORY TYPE CODE TESTS RESULT OUT OF REFERENCE UNITS RANGE LAB D-DIMER, QUANTITATI VE(LOINC) D-DIMER, QUANTITATIVE Result Comment: QUANT D-DIMER LAB D-DIMER 0 - 230 ng/ml QUANT(LOINC) High D-DIMER QUANT 3403 Performed By: #### [id number] #### [facility],[address] [place] [address] Observed: 08/27/2017 Status: F Source: [facility] CULTURE BLOOD 7:20 PM [facility] REPOSITORY CULTURE BLOOD _BLOOD CULTURE_ SET: 24HOUR REPORT NO GROWTH 48HOUR REPORT NO GROWTH 72HOUR REPORT NO GROWTH M I C R O B I O L O G Y R E P O R T FINAL Antimicrobial Susceptibility and Organism Identification Report Specimen Number : [id number] Requested : 08/27/17 Specimen Source : BLOOD Collected : 08/27/17 19:20 [place] [facility] : Emergency Room Received : 08/27/17 19:20 Requesting Physician : HERNANDEZ Patient/Specimen Tests and Comments Specimen Comments FINAL REPORT: No Growth at 5 Days Tech : Source : BLOOD ID # : [id number] FINAL Report Date : / / : Collected : 08/27/17 19:20 09/02/17.WKK. 09/02/17.WKK.COMPLETE Performed By: #### [id number] #### [facility],[address] [place] [address] CBC WITH DIFF EAST Collected: 08/20/2017 Status: F Source: [facility] 8:57 AM [facility] REPOSITORY TYPE CODE TESTS RESULT OUT OF [...] 0.89 Low LAB AMONO 0.30-0.82 K/uL Abs [place] 0.77 LAB AEOS 0.04-0.54 K/uL Abs Eos 0.33 LAB ABASO 0.01-0.08 K/uL Abs Baso 0.07 Performed By: #### CBCDFE, CHM6E, LIVPE #### [address] [address] #### CEA, CA199 #### [facility] [address] [place] [address] [facility] [address] [place], [place] [address] CHEM 6 - UHE Collected: 08/20/2017 Status: F Source: [facility] 8:57 AM [facility] REPOSITORY TYPE CODE TESTS RESULT OUT OF [...] GFR >60 mL/min/1.73 sqM Est GFR,non >60 Faroese LAB GFRA >60 mL/min/1.73 sqM Est GFR, >60 Performed By: #### CBCDFE, CHM6E, LIVPE #### [address] [address] #### CEA, CA199 #### [facility] [address] [place] [address] LIVER PROFILE - E Collected: 08/20/2017 Status: F Source: [facility] 8:57 AM [facility] REPOSITORY TYPE CODE TESTS RESULT OUT OF REFERENCE UNITS RANGE LAB ALT 10-52 U/L ALT 20 LAB AST 14-40 U/L AST 20 LAB ALB 3.5-5.0 g/dL Albumin 3.5 LAB ALP 32-126 U/L Alkaline Phosphatase 32 LAB BILD <0.3 mg/dL Bilirubin Direct 0.1 LAB BILT <1.5 mg/dL Bilirubin Total 0.5 LAB TP 6.4-8.3 g/dL Low Total Protein 6.0 Performed By: #### CBCDFE, CHM6E, LIVPE #### [address] [address] #### CEA, CA199 #### [facility] [address] [place] [address] CEA Collected: 08/20/2017 Status: F Source: [facility] 8:57 AM [facility] REPOSITORY TYPE CODE TESTS RESULT OUT OF RANGE REFERENCE UNITS LAB CEA 0-5.0 ng/mL High CEA 27.8 Performed By: #### CBCDFE, CHM6E, LIVPE #### [address] [address] #### CEA, CA199 #### [facility] [address] [place] [address] [place] 19-9 Collected: 08/20/2017 Status: F Source: [facility] 8:57 AM [facility] REPOSITORY TYPE CODE TESTS RESULT OUT OF RANGE REFERENCE UNITS LAB CA199 0-37.00 U/mL High CA 19-9 146.93 Performed By: #### CBCDFE, CHM6E, LIVPE #### [facility] [address] [place], [place] [address] #### CEA, CA199 #### [facility] [address] [place] [address] [facility] [address] [place], [place] [address] CBC WITH DIFF EAST Collected: 08/06/2017 Status: F Source: [facility] 8:40 AM [facility] REPOSITORY TYPE CODE TESTS RESULT OUT OF [...] 0.68 Low LAB AMONO 0.30-0.82 K/uL Abs [place] 0.52 LAB AEOS 0.04-0.54 K/uL Abs Eos 0.03 Low LAB ABASO 0.01-0.08 K/uL Abs Baso 0.06 LAB PLTEST PLATELET Automated ESTIMATE platelet count confirmed by manual slide review. LAB RMORPH Red Cell RBC indices Morphology confirmed by manual smear review. Performed By: #### CBCDFE #### [address] [address] NUC PET OTHER Observed: 08/05/2017 Status: F Source: [facility] 10:25 PM [facility] REPOSITORY EXAM: NUC PET OTHER, 08/05/2017 15:40 [...] the patient was positioned on the [employer] mCT TOF< PET/CT-64, [facility] imaging unit. A low resolution non-contrast CT [...] GLUCOSE BATTERY Collected: 08/05/2017 Status: F Source: [facility] 1:33 PM [facility] REPOSITORY TYPE CODE TESTS RESULT OUT OF REFERENCE UNITS RANGE LAB GLUP 70-99 mg/dL High Glucose (poc 105 device) Result Comment: No BRAVE per RN: PATIENT TYPE LAB PCSTYP *POC Capillary SAMPLE TYPE Blood CBC WITH DIFF EAST Collected: 07/23/2017 Status: F Source: [facility] 11:15 AM [facility] REPOSITORY TYPE CODE TESTS RESULT OUT OF [...] 1.00 Low LAB AMONO 0.30-0.82 K/uL Abs [place] 0.66 LAB AEOS 0.04-0.54 K/uL Abs Eos 0.39 LAB ABASO 0.01-0.08 K/uL Abs Baso 0.05 Performed By: #### CBCDFE, CHM6E, LIVPE #### [facility] [address] [place], [place] [address] #### CEA, CA199 #### [facility] [address] [place], [place] [address] [facility] [address] [place] [address] CHEM 6 - UHE Collected: 07/23/2017 Status: F Source: [facility] 11:15 AM [facility] REPOSITORY TYPE CODE TESTS RESULT OUT OF [...] GFR >60 mL/min/1.73 sqM Est GFR,non >60 Faroese LAB GFRA >60 mL/min/1.73 sqM Est GFR, >60 Performed By: #### CBCDFStacey, CHM6E, LIVPE #### [place] [address] #### JODI, CA199 #### [place] [address] LIVER PROFILE - UHE Collected: 07/23/2017 Status: F Source: [facility] 11:15 [facility] REPOSITORY TYPE CODE TESTS RESULT OUT [...] Performed By: #### CBCDFE, CHM6E, LIVPE #### [address] [address] #### CEA, CA199 #### [place] [address] CEA Collected: 07/23/2017 Status: F Source: [facility] 11:15 AM [facility] REPOSITORY TYPE CODE TESTS RESULT OUT OF RANGE REFERENCE UNITS LAB CEA 0-5.0 ng/mL High CEA 56.0 Performed By: #### CBCDFE, CHM6E, LIVPE #### [address] [address] #### CEA, CA199 #### [facility] [address] [place] [address] [place] [address] [address] [place] [address] [place] 19-9 Collected: 07/23/2017 Status: F Source: [facility] 11:15 AM [facility] REPOSITORY TYPE CODE TESTS RESULT OUT OF RANGE REFERENCE UNITS LAB CA199 0-37.00 U/mL High CA 19-9 143.28 Performed By: #### CBCDFE, CHM6E, LIVPE #### [address] [address] #### CEA, CA199 #### [facility] [address] [address] MEDIPORT PLACEMENT Observed: 07/22/2017 Status: F Source: [facility] 3:28 PM [facility] REPOSITORY EXAM: IR MEDIPORT PLACEMENT, 07/22/2017 15:23 [...] GLUCOSE BATTERY Collected: 07/22/2017 Status: F Source: [facility] 1:57 PM [facility] REPOSITORY TYPE CODE TESTS RESULT OUT OF REFERENCE UNITS RANGE LAB GLUP 70-99 mg/dL High Glucose (poc 130 device) Result Comment: No BRAVE per RN: PATIENT TYPE LAB PCSTYP *POC SAMPLE TYPE Venous EMERGENCY REPORT Observed: 07/15/2017 Status: F Source: [facility] 5:45 AM [facility] EMERGENCY DEPARTMENT REPORT NAME NUMBER SEX AGE ADMIT DISC TYPE MED.RECORD# PACO MERLYUDMILA [id number] M 61 07/04/17 E.R. [id number] ROOM:[facility] DATE OF :1955 PHYSICIAN NO.:[id number] PHYSICIAN NAME:DR. EDILMA WASHINGTON PHYSICIAN:SHELTON Gastelum FAMILY PHYSICIAN: SHELOTN Gastelum Time seen was 6:30 a.m. HISTORY [...] between 5 and 10 years ago at [facility], which he states was okay. PAST [...] noted in the EMERGENCY ROOM REPORT PACO HAWK 1 [facility] EMERGENCY DEPARTMENT REPORT NAME NUMBER SEX AGE ADMIT DISC TYPE MED.RECORD# PACO HAWK [id number] M 61 07/04/17 E.R. [id number] ROOM:ER-A DATE OF :1955 PHYSICIAN NO.:[id number] PHYSICIAN NAME:DR. EDILMA WASHINGTON PHYSICIAN:SHELTON Gastelum FAMILY PHYSICIAN: SHELTON Gastelum epigastrium with palpation. No abdominal distention. No rebound. Back exhibits no midline or paraspinal region tenderness. No increased paraspinal muscle rigidity. Negative Sacha sign. Extremities: No edema or cyanosis. Peripheral pulses are intact. No motor or sensory deficits are noted. Hand fisher trot line are strong and symmetric. Skin is warm [...] No acute ST segment changes are noted. [place] is approximately 60 degrees. EMERGENCY DEPARTMENT COURSE [...] Kirill Cortez DO TD: 07:21 JOB #: [id number] Transcribed by: am 07/04/2017 14:22 Electronically signed by: E-Sign: Dr. Kirill Cortez D.O. 07/15/17 05:44 EMERGENCY ROOM REPORT PACO HAWK 2 [facility] EMERGENCY DEPARTMENT REPORT NAME NUMBER SEX AGE ADMIT DISC TYPE MED.RECORD# PACO HAWK [id number] M 61 07/04/17 E.RRamos [id number] ROOM:ER-A DATE OF :1955 PHYSICIAN NO.:[id number] PHYSICIAN NAME:DR. EDILMA WASHINGTON PHYSICIAN:SHELTON Gastelum FAMILY PHYSICIAN: SHELTON Gastelum EMERGENCY ROOM REPORT PACO ABBIELYUDMILA Aroldo EMERGENCY REPORT Observed: 07/15/2017 Status: F Source: [facility] 5:44 AM [facility] EMERGENCY ROOM NAME NUMBER SEX AGE ADMIT DISC TYPE MED. RECORD# PACO [id number] L[place] [id number] ROOM: DATE OF : 1955 PHYSICIAN NO: [id number] PHYSICIAN: EDILMA WASHINGTON, ADDENDUM EMERGENCY DEPARTMENT COURSE AND TREATMENT: I did discuss the case with the [facility]. They presently do not have a bed. [...] are waiting on a bed from the [facility], we still feel this is the best route to go because he will probably go home and have more abdominal pain and be right back in the Emergency Room if we do not address these pancreatic masses. He did verbalize understanding of this, and his did as well. Presently, at this point, we will continue to wait for a bed assignment from [facility] at [facility]. D: Kirill Cortez DO TD: 13:25 JOB #: [id number] Transcribed by: [email or web address] 07/05/2017 07:39 Electronically signed by: E-Sign: Dr. Kirill Cortez D.O. 07/15/17 05:44 CARINE ANTONIO Page 1 of 1 EMERGENCY REPORT Observed: 07/15/2017 Status: F Source: [facility] 5:44 AM [facility] EMERGENCY DEPARTMENT REPORT NAME NUMBER SEX AGE ADMIT DISC TYPE MED.RECORD# PACO HAWK [id number] Lili 61 07/04/17 E.RRamos [id number] ROOM:ER-A DATE OF :1955 PHYSICIAN NO.:[id number] PHYSICIAN NAME:DR. EDILMA WASHINGTON PHYSICIAN:SHELTON Gastelum FAMILY [...] cannot do that here recommended transfer to [facility]. I did call [facility], but they are presently full and have no beds. We also discussed the case with the [facility] at [facility] in [place], and presently their bed situation is tight [...] and then we will decide. D: Kirill Cortez DO TD: 12:35 JOB #: [id number] Transcribed by: vanna 07/04/2017 18:46 Electronically signed by: E-Sign: Dr. Kirill Cortez D.O. 07/15/17 05:43 EMERGENCY ROOM REPORT PACO [address] EMERGENCY DEPARTMENT REPORT NAME NUMBER SEX AGE ADMIT DISC TYPE MED.RECORD# PACO HAWK [id number] M 61 07/04/17 E.R. [id number] ROOM:ER-A DATE OF :1955 PHYSICIAN NO.:[id number] PHYSICIAN NAME:DR. EDILMA WASHINGTON PHYSICIAN:SHELTON Gastleum FAMILY PHYSICIAN: SHELTON Gastelum EMERGENCY ROOM REPORT PACO HAWK 2 CT CHEST WITH Observed: 07/11/2017 Status: F Source: [facility] 10:03 PM [facility] REPOSITORY EXAM: CT CHEST WITH CONTRAST, 07/05/2017 [...] GLUCOSE BATTERY Collected: 07/06/2017 Status: F Source: [facility] 7:41 AM [facility] REPOSITORY TYPE CODE TESTS RESULT OUT OF REFERENCE UNITS RANGE LAB GLUP 70-99 mg/dL High Glucose (poc 191 device) Result Comment: No BRAVE per RN: PATIENT TYPE LAB PCSTYP *POC Capillary SAMPLE TYPE Blood CBC,PLATELET,DIFFERENTIAL - CCL Collected: Status: F Source: [facility] 07/06/2017 4:09 AM [facility] REPOSITORY TYPE CODE TESTS RESULT OUT OF [...] 0.94 Low LAB AMONO 0.30-0.82 K/uL Abs [place] 0.96 High LAB AEOS 0.04-0.54 K/uL Abs Eos 0.43 LAB ABASO 0.01-0.08 K/uL Abs Baso 0.09 High Performed By: #### CBCDFC, CHM7 #### [facility] [address] [place] [address] [address] [place], [place] [address] CHEM 7 Collected: 07/06/2017 Status: F Source: [facility] 4:09 AM [facility] REPOSITORY TYPE CODE TESTS RESULT OUT OF [...] GFR >60 mL/min/1.73 sqM Est GFR,non >60 Faroese LAB GFRA >60 mL/min/1.73 sqM Est GFR, >60 Performed By: #### CBCDFC, CHM7 #### [facility] [address] [place] [address] [place] [address] US HEPATIC MASS Observed: 07/05/2017 Status: F Source: [facility] BIOPSY 3:43 PM [facility] REPOSITORY EXAM: [facility] US HEPATIC MASS BIOPSY, 07/05/2017 12:11 PM [...] was provided using 2% Lidocaine. Procedure: An [id number] Mermaid biopsy gun was placed into the [...] ICAL PATHOLOGY Observed: 07/05/2017 Status: F Source: [facility] 12:20 PM [facility] REPOSITORY Surgical Pathology Report Patient Name: CARINE ANTONIO Med. Rec #: [id number] Submitting Physician: ELVIRA PACHECO --- Clinical History [...] developed by and are performed at the [facility], [address] [place] [address]. All tests reported here, except those addressing [...] Waller submitted an order for additional stains/tests [facility] CDx Molecular Profile and [facility] PD-L1 and the tissue block(s) was retrieved from archive storage and submitted to the [facility] clinical histology laboratory for additional processing and staining. The material will be sent to [address] [address]. The results will be available in IHIS. Sravanthi Hanks MD ---SPECIMEN(S) RECEIVED:--- SBX A: [...] cm. TE 2 Lab Use Only: JobID [id number] Gross description by: Tabitha Koroma Performed By: #### SURGP #### [facility] [place] [address] *POC GLUCOSE BATTERY Collected: 07/05/2017 Status: F Source: [facility] 11:19 AM [facility] REPOSITORY TYPE CODE TESTS RESULT OUT OF REFERENCE UNITS RANGE LAB GLUP 70-99 mg/dL High Glucose (poc 129 device) Result Comment: No BRAVE per RN: PATIENT TYPE LAB PCSTYP *POC Capillary SAMPLE TYPE Blood *POC GLUCOSE BATTERY Collected: 07/05/2017 Status: F Source: [facility] 9:58 AM [facility] REPOSITORY TYPE CODE TESTS RESULT OUT OF REFERENCE UNITS RANGE LAB GLUP 70-99 mg/dL High Glucose (poc 141 device) Result Comment: No BRAVE per RN: PATIENT TYPE LAB PCSTYP *POC Capillary SAMPLE TYPE Blood VITAMIN B12 Collected: 07/05/2017 Status: X Source: [facility] 8:17 AM [facility] REPOSITORY TYPE CODE TESTS RESULT OUT OF REFERENCE UNITS RANGE LAB B12B Vitamin B12 This result has been cancelled. Performed By: #### B12B, FOLSB #### [facility] (DEFAULT) [address] [place] [address] FOLATE, SERUM Collected: 07/05/2017 Status: X Source: [facility] 8:17 AM [facility] REPOSITORY TYPE CODE TESTS RESULT OUT OF REFERENCE UNITS RANGE LAB FOLSB Folate, This result Serum has been cancelled. Performed By: #### B12B, FOLSB #### [facility] (DEFAULT) [address] [place] [address] [place] [address] RETICULOCYTES Collected: 07/05/2017 Status: F Source: [facility] 7:19 AM [facility] REPOSITORY TYPE CODE TESTS RESULT OUT OF REFERENCE UNITS RANGE LAB OBS 0.51-1.81 % *Retic Count 1.64 LAB TYRON 0.026-0.095 M/uL Retic Absolute 0.0712 Performed By: #### RETIC #### [facility] [address] [address] IRON*TIBC (TRANSFERRIN) Collected: 07/05/2017 Status: F Source: [facility] 6:28 AM [facility] REPOSITORY TYPE CODE TESTS RESULT OUT OF REFERENCE UNITS RANGE LAB IRON 40-174 mcg/dL Low Iron 34 LAB TIBC 298-596 mcg/dL Total Iron Binding Capacity 381 LAB IRONS 20-55 % Low *Iron*Saturation 9 LAB COPPOLA 200-400 mg/dL Transferrin 256 Performed By: #### CHRISTY, CHM7 #### [facility] [address] [address] CHEM 7 Collected: 07/05/2017 Status: F Source: [facility] 6:28 [facility] REPOSITORY TYPE CODE TESTS RESULT OUT [...] GFR >60 mL/min/1.73 sqM Est GFR,non >60 Faroese LAB GFRA >60 mL/min/1.73 sqM Est GFR, >60 Performed By: #### IRBC, CHM7 #### [facility] [address] [place] [address] FERRITIN Collected: 07/05/2017 Status: F Source: [facility] 6:28 AM [facility] REPOSITORY TYPE CODE TESTS RESULT OUT OF RANGE REFERENCE UNITS LAB FERI 22-322 ng/mL *Ferritin 293 Performed By: #### FERIB, B12B #### [facility] [address] [place] [address] [place] [address] VITAMIN B12 Collected: 07/05/2017 Status: F Source: [facility] 6:28 AM [facility] REPOSITORY TYPE CODE TESTS RESULT OUT OF RANGE REFERENCE UNITS LAB FOLS >5.38 ng/mL 14.07 *Folate*Seru m Performed By: #### FERIB, B12B #### [facility] [address] 410 [place] [address] CEA Collected: 07/05/2017 Status: F Source: [facility] 3:32 AM [facility] REPOSITORY TYPE CODE TESTS RESULT OUT OF RANGE REFERENCE UNITS LAB CEA 0-5.0 ng/mL High CEA 40.2 Performed By: #### CEA, CA199 #### [facility] [address] 410 [place] [address] CA 19-9 Collected: 07/05/2017 Status: F Source: [facility] 3:32 AM [facility] REPOSITORY TYPE CODE TESTS RESULT OUT OF RANGE REFERENCE UNITS LAB CA199 0-37.00 U/mL High CA 19-9 170.15 Performed By: #### CEA, CA199 #### [facility] [address] [place] [address] Observed: 07/05/2017 Status: F Source: [facility] TYPE AND CROSS 1:14 AM [facility] REPOSITORY ABO/RH(D): A NEGATIVE ANTIBODY SCREEN: NEGATIVE Performed By: #### XM #### [facility] [address] [place] [address] [address] [place], [place] [address] CBC,PLATELET,DIFFERENTIAL - CCL Collected: Status: F Source: [facility] 07/05/2017 12:55 [facility] REPOSITORY TYPE CODE TESTS RESULT OUT OF [...] Lymph 1.38 LAB AMONO 0.30-0.82 K/uL Abs [place] 0.92 High LAB AEOS 0.04-0.54 K/uL Abs Eos 0.48 LAB ABASO 0.01-0.08 K/uL Abs Baso 0.08 Performed By: #### CBCDFC, CA, CHM6, HFP, IPB, LDO, MGO, URICB, PTPTT #### [facility] [address] [place] [address] [facility] [address] [place], [place] [address] CALCIUM Collected: 07/05/2017 Status: F Source: [facility] 12:55 AM [facility] REPOSITORY TYPE CODE TESTS RESULT OUT OF REFERENCE UNITS RANGE LAB CA 8.6-10.5 mg/dL Calcium 9.4 Performed By: #### CBCDFC, CA, CHM6, HFP, IPB, LDO, MGO, URICB, PTPTT #### [facility] [address] [place] [address] [facility] [address] [place] [address] CHEM 6 Collected: 07/05/2017 Status: F Source: [facility] 12:55 AM [facility] REPOSITORY TYPE CODE TESTS RESULT OUT OF [...] GFR >60 mL/min/1.73 sqM Est GFR,non >60 Faroese LAB GFRA >60 mL/min/1.73 sqM Est GFR, >60 Performed By: #### CBCDFC, CA, CHM6, HFP, IPB, LDO, MGO, URICB, PTPTT #### [facility] [address] [place] [address] [place] [address] [address] [place] [address] HEPATIC FUNCTION Collected: 07/05/2017 Status: F Source: [facility] 12:55 AM [facility] REPOSITORY TYPE CODE TESTS RESULT OUT OF [...] HFP, IPB, LDO, MGO, URICB, PTPTT #### [facility] [address] [place] [address] [facility] [address] [place] [address] INORGANIC PHOSPHATE Collected: 07/05/2017 Status: F Source: [facility] 12:55 AM [facility] REPOSITORY TYPE CODE TESTS RESULT OUT OF REFERENCE UNITS RANGE LAB IP 2.2-4.6 mg/dL Inorg Phosphate 3.2 Performed By: #### CBCDFC, CA, CHM6, HFP, IPB, LDO, MGO, URICB, PTPTT #### [facility] [address] [place] [address] [place] [address] LD TOTAL Collected: 07/05/2017 Status: F Source: [facility] 12:55 AM [facility] REPOSITORY TYPE CODE TESTS RESULT OUT OF RANGE REFERENCE UNITS LAB LD 100-190 U/L High LD Total 286 Performed By: #### CBCDFC, CA, CHM6, HFP, IPB, LDO, MGO, URICB, PTPTT #### [facility] [address] [place] [address] [place] [address] 410 [place] [address] MAGNESIUM Collected: 07/05/2017 Status: F Source: [facility] 12:55 AM [facility] REPOSITORY TYPE CODE TESTS RESULT OUT OF REFERENCE UNITS RANGE LAB MG 1.6-2.6 mg/dL Magnesium 1.9 Performed By: #### CBCDFC, CA, CHM6, HFP, IPB, LDO, MGO, URICB, PTPTT #### [facility] [address] [place] [address] [facility] [address] [address] URIC ACID Collected: 07/05/2017 Status: F Source: [facility] 12:55 AM [facility] REPOSITORY TYPE CODE TESTS RESULT OUT OF RANGE REFERENCE UNITS LAB URIC 3.5-7.0 mg/dL High Uric Acid 8.2 Performed By: #### CBCDFC, CA, CHM6, HFP, IPB, LDO, MGO, URICB, PTPTT #### [facility] [address] [place] [address] [facility] [address] [place] [address] PT*PTT Collected: 07/05/2017 Status: F Source: [facility] 12:55 AM [facility] REPOSITORY TYPE CODE TESTS RESULT OUT OF RANGE REFERENCE UNITS LAB PT 11.9-14.2 sec PT 14.2 LAB INR 0.9-1.1 INR 1.1 LAB PTT 24.0-34.3 sec PTT 28.6 Performed By: #### CBCDFC, CA, CHM6, HFP, IPB, LDO, MGO, URICB, PTPTT #### [facility] [address] [place] [address] [address] [place] [address] URINALYSIS Collected: 07/05/2017 Status: F Source: [facility] 12:55 AM [facility] REPOSITORY TYPE CODE TESTS RESULT OUT OF RANGE REFERENCE UNITS LAB LIP AND GATE BUILDER Clear Appearance Urine Clear LAB SPGR 1.001-1.035 Specific [place] Laager urine 1.027 LAB UGL Negative mg/dL Glucose [...] 1+ Performed By: #### URIN #### [facility] [address] [place] [address] [address] [place] [address] TROPONIN Collected: 07/04/2017 Status: F Source: [facility] 8:25 PM [facility] REPOSITORY TYPE CODE TESTS RESULT OUT [...] such as heterophile antibodies). Performed By: #### [id number] #### [place] [address] TROPONIN Collected: 07/04/2017 Status: F Source: [facility] 1:15 PM [facility] REPOSITORY TYPE CODE TESTS RESULT OUT [...] such as heterophile antibodies). Performed By: #### [id number] #### [address] [address] TROPONIN Collected: 07/04/2017 Status: F Source: [facility] 10:50 AM [facility] REPOSITORY TYPE CODE TESTS RESULT OUT [...] such as heterophile antibodies). Performed By: #### [id number] #### [facility],[address] [place] [address] ABDOMEN/PELVIS W Observed: 07/04/2017 Status: F [facility] [address] Patient: CARINE ANTONIO Phone#: : 1955 Age: 61 Gender: M Pt. Type: ER Account: [id number] Location: 052 Ordering: EDILMA WASHINGTON Exam Date: 07/04/2017/8:30 Family Phys: NAIDAJANUSZ SHELTON Charge Code: 604061 Physician: Aurora Order #: [id number] DLP Dose#: [id number] PROCEDURE: CT ABDOMEN/PELVIS WITH [...] 61 Gender: M Pt. Type: ER Account: [id number] Location: [facility] Ordering: EDILMA WASHINGTON Exam Date: 07/04/2017/8:30 Family Phys: DAHLIA ZULETA Charge Code: 230074 Physician: Aurora Order #: [id number] DLP Dose#: [id number] BOWEL/MESENTERY: Colonic diverticula are [...] 2 VIEWS Observed: 07/04/2017 Status: F Source: [facility] 8:33 AM [place] [address] Patient: CARINE ANTONIO Phone#: : 1955 Age: 61 Gender: M Pt. Type: ER Account: [id number] Location: 052 Ordering: EDILMA WASHINGTON Exam Date: 07/04/2017/8:07 Family Phys: DAHLIA ZULETA Charge Code: 937981 Physician: Aurora Order #: [id number] DLP Dose#: PROCEDURE: X-RAY CHEST 2 VIEWS [...] Status: F Source: [facility] 7:24 AM [facility] REPOSITORY TYPE CODE TESTS RESULT OUT [...] x10EE3/ 7.10 UL Neut # 5.70 LAB [place] #(LOINC) 0.20 - x10EE3/ 1.00 UL [place] # 1.00 LAB EO #(LOINC) 0.00 - x10EE3/ 0.50 UL EO # 0.50 LAB Baso #(LOINC) 0.00 - x10EE3/ 0.10 UL Baso # 0.10 LAB MANUAL DIFF(LOINC) MANUAL DIFF REVIEWED LAB MORPHOLOGY(LOIN C) MORPHOLOGY REVIEWED Result Comment: {CD] Performed By: #### [id number] #### [place] [address] LIPASE Collected: 07/04/2017 Status: F Source: [facility] 7:24 [facility] REPOSITORY TYPE CODE TESTS RESULT OUT OF REFERENCE UNITS RANGE LAB LIPASE(LOIN 18.0 - 51.0 U/L C) LIPASE 25.0 Performed By: #### [id number] #### [place] [address] CMP WITH EGFR Collected: 07/04/2017 Status: F Source: [facility] 7:24 [facility] REPOSITORY TYPE CODE TESTS RESULT OUT [...] OF AGE AND OLDER. Performed By: #### [id number] #### [facility],[address] [place], [place] [address] TROPONIN Collected: 07/04/2017 Status: F Source: [facility] 7:24 AM [facility] REPOSITORY TYPE CODE TESTS RESULT OUT [...] such as heterophile antibodies). Performed By: #### [id number] #### [facility],[address] [place], [place] [address] ALLERGIES ALLERGIES DATE TYPE / CODE NAME / CODE REACTION SEVERITY SOURCE 05/06/2018 Drug No Known Unknown [place] Allergy/177247720(S Allergies/F0019 [facility]OM[facility]) [address](RXNORM) Hospital Repository Miscellaneous No Known Drug Moderate [facility] Allergy/207138735(S Allergies (Severity [facility] NOM[facility]) Modifier) Hospital (Qualifier Repository Value) ENCOUNTERS ENCOUNTERS ADMIT/DISCHARGE ACCOUNT NUMBER ADMITTING ENCOUNTER LOCATION SOURCE CLASS 05/08/2018 [id number] Ambulatory [facility] ding:ONC Repository 05/06/2018 [id number] Ambulatory BMSBuilding: [place] BMS.CF.[facility] Repository 04/29/2018 [id number] Ambulatory Building:[facility] Repository 04/29/2018 [id number] Ambulatory Building:[facility] Repository 04/29/2018 [id number] Ambulatory Building:[facility] Repository 04/23/2018 [id number] Ambulatory BMSBuilding: [place] BMS.CF.[facility] Repository 04/23/2018 [id number] Ambulatory Building:[facility] Repository 04/23/2018 [id number] Ambulatory Building:[facility] Repository 04/08/2018 [id number] Ambulatory BMSBuilding: [place] BMS.CF.[facility] Repository 04/03/2018 [id number] Ambulatory [facility] ding:MEDOUTP Repository 04/02/2018 [id number] SHELTON, Ambulatory [facility] DAHLIA [facility] Repository 04/02/2018 [id number] [facility] Ambulatory [facility] Repository 04/02/2018 [id number] [facility] Repository 04/01/2018 [id number] Ambulatory Building:[facility] Repository 04/01/2018 [id number] Ambulatory Building:[facility] Repository 03/20/2018 [id number] Ambulatory [facility] ding:MEDOUTP Repository 03/18/2018 [id number] Ambulatory Building:[facility] Repository 03/06/2018 [id number] Ambulatory [facility] ding:MEDOUTP Repository 03/04/2018 [id number] Ambulatory Building:[facility] Repository 03/04/2018 [id number] Ambulatory Building:[facility] Repository 02/20/2018 [id number] Ambulatory [facility] 02/18/2018 [id number] Ambulatory Building:[facility] Repository 02/06/2018 [id number] Ambulatory [facility] ding[facility] 02/04/2018 [id number] Ambulatory Building:[facility] Repository 02/04/2018 [id number] Ambulatory Building:[facility] Repository 01/27/2018 [id number] Ambulatory Building:[facility] Repository 01/27/2018 [id number] Ambulatory Building:[facility] Repository 01/21/2018 [id number] Ambulatory Building:[facility] Repository 01/07/2018 [id number] Ambulatory Building:[facility] Repository 01/07/2018 [id number] Ambulatory Building:[facility] Repository 12/24/2017 [id number] Ambulatory Building:[facility] Repository 12/10/2017 [id number] Ambulatory Building:[facility] Repository 12/10/2017 [id number] Ambulatory Building:[facility] Repository 11/26/2017 [id number] Ambulatory Building:[facility] Repository 11/12/2017 [id number] Ambulatory Building:[facility] Repository 10/29/2017 [id number] Ambulatory Building:[facility] Repository 10/29/2017 [id number] Ambulatory Building:[facility] Repository 10/21/2017 [id number] Ambulatory Building:[facility] Repository 10/21/2017 [id number] Ambulatory Building:[facility] Repository 10/15/2017 [id number] Ambulatory Building:[facility] Repository 10/01/2017 [id number] Ambulatory Building:[facility] Repository 10/01/2017 [id number] Ambulatory Building:[facility] Repository 09/17/2017 [id number] Ambulatory Building:[facility] Repository 09/03/2017 [id number] Ambulatory Building:[facility] Repository 09/03/2017 [id number] Ambulatory Building:[facility] Repository 08/28/2017/08/29/19 [id number] SHELTON, Ambulatory Ramon Humphrey 18 DAHLIA [facility] Repository 08/27/2017/08/28/19 [id number] ANN MARIE, Emergency Buildin Ramon Humphrey [address] DEEDEE Ibarra Room: [facility] Repository 08/20/2017 [id number] Ambulatory Building:[facility] Repository 08/06/2017 [id number] Ambulatory Building:[facility] Repository 08/06/2017 [id number] Ambulatory Building:[facility] Repository 08/05/2017 [id number] Ambulatory Building:SC1 [facility] Repository 07/23/2017 [id number] Ambulatory Building:RSO [facility] Repository 07/22/2017/07/23/19 [id number] REZA BRENDA, Ambulatory Building:CCT [facility] 18 BRENTON VIRRoom: [facility] Repository 07/19/2017 [id number] Ambulatory Building:CT5 [facility] Repository 07/18/2017 [id number] Ambulatory Building:RSO [facility] Repository 07/04/2017/07/07/19 [id number] TARA, Ambulatory Building:C[address] [place] [address] CRYSTAL M ARoom: [place] 21[address]Bed: A [facility] Repository 07/04/2017/07/05/19 [id number] FELIX, Emergency Buildin Ramon Humphrey EDILMA TRIMBLE Room: ERBed: [facility] Repository PAYERS PAYERS ENCOUNTER GUARANTOR PAYER SUBSCRIBER SOURCE 05/08/2018 MERLE D Primary SYLWIA [place] [id number] Insurance:AULTCAREPoli SCHLABACHDOB: Community RONSAN cy Number: [id number] [id number] [place]ository [place] [address]Wsb: Date:0403-33-74VW [address] [place] [address] () [address]WL: 05/08/2018 Secondary NOT GIVENUNK [place] Insurance:SELF PAY [facility] Number: Effective Repository Date:2018-04-02 05/06/2018 MERLE D Primary SYLWIA [place] [id number] Insurance:AULTCAREPoli SCHLABACHDOB: [facility] RONSAN cy Number: [id number] [facility], [id number] [place]ository [place] [address]Fqr: Date:4834-46-72NA [address], [place] () [address]AX: 05/06/2018 Secondary NOT GIVENUNK [place] Insurance:SELF PAY [facility] Number: Effective Repository Date:2018-05-06 04/29/2018 MERLE Primary SYLWIA [place] SCHLABACHDOB: Insurance:AULTCAREPoli [facility]: [place] cy Number: [id number] [place] [address] [id number] Center, Date:6858-84-64Ffcm [place], [place] Repository [place] [address]Ldk: Name:MANAGED CARE [id number]: [phone] () () 04/29/2018 MERLE Primary [facility]IA [facility] Insurance:AULTCAREPoli [facility]HD[facility]: [place] cy Number: [id number] [place] [address] [id number] Center, Date:4358-64-67Ufho [place], [place] Repository [place] [address]Jrp: Name:MANAGED CARE [address]Mxm: [phone] () () 04/29/2018 MERLE Primary SYLWIA [facility]HD[facility]: Insurance:[facility]AYNES[facility]ILLECAREPenn Presbyterian Medical CenterACHDOB: [place] cy Number: [id number] [facility] [id number] Center, Date:9830-49-00Ynro [place], [place] Repository [place] [address]Nvx: Name:[facility] CARE [address]Gku: [phone] () () 04/23/2018 MERLE D Primary SYLWIA [place] [id number] Insurance:AULTCAREPoli [facility]ACHDOB: [facility] RONSAN cy Number: [id number] Peak Regional Hospital, [id number] [place]ository [place] [address]Psk: Date:6969-34-03XO [address], [place] () [address]LE: 04/23/2018 Secondary NOT GIVENUNK [place] Insurance:SELF PAY [facility] Number: Effective Repository Date:2018-04-23 04/23/2018 MERLE Primary SYLWIA [facility] SCHLABACHDOB: Insurance:AULTCAREPoli [facility]ACHDOB: [place] cy Number: [id number] LanceOhio[facility] [id number] [facility], Date:8030-20-74Wqlo [place] Repository [place] [address]Neg: Name:MANAGED CARE [address]Bab: [phone] () () 04/23/2018 MERLE Primary SYLWIA [facility] SCHLABACHDOB: Insurance:AULTCAREPoli [facility]ACHDOB: [place] cy Number: [id number] [facility] [id number] [facility], Date:9809-35-05Grps [place], [place] Repository [place] [address]Qos: Name:MANAGED CARE [address]Mzz: [phone] () () 04/08/2018 MERLE D Primary SYLWIA [place] [id number] Insurance:AULTCAREPoli [facility]LELABACHDOB: [facility] cy Number: [id number] [facility] at [facility] [id number] [place]ository [place] [address]Zas: Date:6833-24-76FM [address], [place] () [address]TB: 04/08/2018 Secondary NOT GIVENUNK [place] Insurance:SELF PAY [facility] Number: Effective Repository Date:2018-04-08 04/03/2018 MERLE D Primary SYLWIA [place] [id number] Insurance:AULTCAREPoli SCHLABACHDOB: [facility] cy Number: [id number] Peak Regional Hospital, [id number] [place]ository [place] [address]Jiq: Date:2299-62-22AX [address], [place] () [address]HH: 04/03/2018 Secondary NOT GIVENUNK [place] Insurance:SELF PAY [facility] Number: Effective Repository Date:2018-04-01 04/02/2018 MERLE Primary SYLWIA Humph[place] SCHLABACHDOB: Insurance:AULTCAREPoli SCHLABACHDOB: [facility] cy Number: [id number] [facility] [id number] [place] Repository [facility], Date:2549-80-82Xlgi STSCentral [facility]lip [facility] [address]Vnp: Name:[place]ZE[place] [id number] () 04/02/2018 MERLE Primary SYLWIA Humphrey SCHLABACHDOB: Insurance:AULTCARE SCHLABACHDOB: [facility] [id number] [place] [address] Number: RONSON Repository [facility], [id number] [facility] [address]Sqc: Date:Plan Name:Mayi [id number] () 04/02/2018 Secondary SYLWIA [place] Humphrey Insurance:[facility] SCHLABACHDOB: [address] [id number] Hospital OUTPATIENTCrozer-[facility] [address], Repository [place]: [id number] Date:P [facility] [address], [place] [id number]: 04/02/2018 MERLE Primary SYLWIA Humphrey SCHLABACHDOB: Insurance:AULTCAREPoli SCHLABACHDOB: [facility] cy Number: [id number] [place] [address] [id number] [facility] Repository [facility], Date:0262-21-26Qhrr STSCentral Islip Psych[facility] [address]Vft: Name:[phone] () 04/01/2018 MERLE Primary SYLWIA [facility] SCHLABACHDOB: Insurance:AULTCAREPoli SCHLABACHDOB: [place] cy Number: [id number] [facility] [id number] Lady of Peace Hospital, Date:0190-10-27Gnur [place] Repository [place] [address]Dds: Name:MANAGED CARE [address]Ryw: [phone] () () 04/01/2018 MERLE Primary SYLWIA [facility] SCHLABACHDOB: Insurance:AULTCAREPolThe Rehabilitation InstituteLABACHDOB: [place] cy Number: [id number] [facility] [id number] Center, Date:3853-46-73Tyfq [place] Repository [place] [address]Bcv: Name:[place] [id number]: () () 03/20/2018 MERLE D Primary SYLWIA [place] [id number] Insurance:AULTCAREPoli [facility]LELABACHDOB: [facility] cy Number: [id number] Peak Regional Hospital, [id number] [place] [address]Nzz: Date:8683-76-71PC [address], [place] () [address]ZI: 03/20/2018 Secondary NOT GIVENUNK [place] Insurance:SELF PAY [facility] Number: Effective Repository Date:2018-03-18 03/18/2018 MERLE Primary SYLWIA [facility] SCHLABACHDOB: Insurance:AULTCAREPoli SCHLABACHDOB: [place] cy Number: [id number] [facility] [id number] Lady of Peace Hospital, Date:3116-57-31Iseg [place], [place] Repository [place] [address]Gcu: Name:[facility] [address]Dmo: [phone] () () 03/06/2018 MERLE D Primary SYLWIA [place] [id number] Insurance:AULTCAREPoli [facility]LELABACHDOB: [facility] RONSA cy Number: [id number] [facility], [id number] [place]ository [place] [address]Sst: Date:5683-00-00[address] [place] [address] () [address]UT: 03/06/2018 Secondary NOT GIVENUNK [place] Insurance:SELF PAY [facility] Number: Effective Repository Date:2018-03-04 03/04/2018 MERLE Primary SYLWIA [facility] SCHLABACHDOB: Insurance:[facility]: [place] cy Number: [id number] [place] [address] [id number] [facility], Date:2695-44-00Tvcb [place], [place]ository [place] [address]Wmu: Name:MANAGED CARE 72242Luz: [phone] () () 03/04/2018 MERLE [facility] Jackson[facility]HD[facility]: Insurance:[facility] CareB: [place] cy Number: [id number] [place] [address] [id number] Center, Date:3481-48-44Adcd [place], [place] [address]Icq: Name:MANAGED CARE 18670Ssl: [phone] () () 02/20/2018 MERLE D Primary SYLWIA Migdalia [id number] Insurance:AULTCAREPoli [facility]LABACHDOB: [facility] RONSAN cy Number: [id number] [facility], [id number] [place] [address]Zsm: Date:6498-56-25[address] () [address]VH: 02/20/2018 Secondary NOT GIVENUNK [place] Insurance:SELF PAY [facility] Number: Effective Repository Date:2018-02-18 02/18/2018 MERLE Primary [facility] JacksonLABACHDOB: Insurance:AULTCAREPoli SCHLABACHDOB: [place] cy Number: [id number] [facility] [id number] Lady of Peace Hospital, Date:0793-84-51Srkj [place] [address]Uyo: Name:MANAGED CARE 27718Cja: [phone] () () 02/06/2018 MERLE D Primary Sylwia [place] [id number] Insurance:AULTCAREPoli SchlabachDOB: [facility] cy Number: [id number] [facility], [id number] [place] [address]Utv: Date:7718-84-24CW [address] [place] [address] () [address]ZB: 02/06/2018 Secondary NOT GIVENUNK [place] Insurance:SELF PAY [facility] Number: Effective Repository Date:2018-02-05 02/04/2018 MERLE Primary SYLWIA [facility] SCHLABACHDOB: Insurance:AULTCAREPoli [facility]LELABACHDOB: [place] cy Number: [id number] [facility] [id number] Lady of Peace Hospital, Date:0369-81-30Wpwm [place] [address]Yqe: Name:MANAGED CARE 99751Hsv: [phone] () () 02/04/2018 MERLE Primary SYLWIA [facility] SCHLABACHDOB: Insurance:AULTCAREPoli [facility]LELABACHDOB: [place] cy Number: [id number] [facility] [id number] Lady of Peace Hospital, Date:4980-37-99Pxbp [place] [address]Jnn: Name:MANAGED CARE 48900Ppf: [phone] (HP) () 01/27/2018 MERLE Primary [facility]IA [facility]HD[facility]: Insurance:[facility] CareB: [place] cy Number: [id number] [facility] [id number] Lady of Peace Hospital, Date:7200-72-03Zqlk [place] [address]Lrw: Name:MANAGED CARE 16219Wnq: [phone] (HP) (HP) 01/27/2018 MERLE Primary SYLWIA [facility]ACHDOB: Insurance:[facility] CareB: [place] cy Number: [id number] [facility] [id number] Lady of Peace Hospital, Date:0762-09-85Ugft [facility], [place] [address]Aag: Name:MANAGED CARE 49695Fsq: [phone] () (HP) 01/21/2018 MERLE Primary SYLWIA [facility] CenterACHDOB: Insurance:[facility]: [place] cy Number: [id number] [facility] [id number] Center, Date:0417-70-16Uxma [facility], [place] [address]Oli: Name:MANAGED CARE 65392Hyd: [phone] (HP) (HP) 01/07/2018 MERLE Primary SYLWIA [facility] CenterACHDOB: Insurance:[facility] CareB: [place] cy Number: [id number] [facility] [id number] Lady of Peace Hospital, Date:4998-31-49Zwan [facility], [place] [address]Yzs: Name:MANAGED CARE 41954Yem: [phone] (HP) (HP) 01/07/2018 MERLE Primary SYLWIA [facility] HospitalLABACHDOB: Insurance:[facility]: [place] cy Number: [id number] [facility] [id number] Lady of Peace Hospital, Date:0888-31-66Wbrh [facility], [place] [address]Dux: Name:MANAGED CARE 10809Lsd: [phone] (HP) (HP) 12/24/2017 MERLE Primary SYLWIA [facility] HospitalLABACHDOB: Insurance:[facility]: [place] cy Number: [id number] [facility] [id number] Lady of Peace Hospital, Date:6383-09-63Aios [facility], [place] [address]Txx: Name:MANAGED CARE 47031Igz: [phone] (HP) (HP) 12/10/2017 MERLE Primary SYLWIA [facility] HospitalLABACHDOB: Insurance:[facility]: [place] cy Number: [id number] [facility] [id number] Lady of Peace Hospital, Date:0941-06-05Ufcq [facility], [place] [address]Aie: Name:MANAGED CARE 60358Qaz: [phone] (HP) (HP) 12/10/2017 MERLE Primary SYLWIA [facility] HospitalLABACHDOB: Insurance:[facility]: [place] cy Number: [id number] [facility] [id number] Lady of Peace Hospital, Date:4735-26-96Fabp [facility], [place] [address]Olg: Name:MANAGED CARE 09872Zii: [phone] (HP) (HP) 11/26/2017 MERLE Primary SYLWIA [facility] CenterACHDOB: Insurance:[facility]: [place] cy Number: [id number] [facility] [id number] Lady of Peace Hospital, Date:9505-65-78Ifqy [place] [address]Prj: Name:MANAGED CARE 10378Cfh: [phone] (HP) (HP) 11/12/2017 MERLE Primary SYLWIA [facility] CenterACHDOB: Insurance:[facility]: [place] cy Number: [id number] [facility] [id number] Lady of Peace Hospital, Date:4419-81-24Ywtd [place] [address]Gpi: Name:MANAGED CARE 22854Hpu: [phone] (HP) (HP) 10/29/2017 MERLE Primary SYLWIA [facility] CenterACHDOB: Insurance:[facility]: [place] cy Number: [id number] [facility] [id number] Center, Date:3862-78-81Jhvq [place], [place] [address]Lfy: Name:MANAGED CARE 65304Jno: [phone] (HP) (HP) 10/29/2017 MERLE Primary SYLWIA [facility] CenterACHDOB: Insurance:[facility]: [place] cy Number: [id number] [facility] [id number] Lady of Peace Hospital, Date:9494-57-72Ijyt [place] [address]Orh: Name:MANAGED CARE 42893Erx: [phone] (HP) (HP) 10/21/2017 MERLE Primary SYLWIA [facility] HospitalLABACHDOB: Insurance:[facility]: [place] cy Number: [id number] [facility] [id number] Lady of Peace Hospital, Date:7882-19-66Bmvp [place] [address]Hnt: Name:MANAGED CARE 31192Wyt: [phone] (HP) (HP) 10/21/2017 MERLE Primary SYLWIA [facility] CenterACHDOB: Insurance:[facility]: [place] cy Number: [id number] [facility] [id number] Center, Date:8806-10-57Elbb [place], [place] [address]Bdh: Name:MANAGED CARE 01503Cwy: [phone] (HP) (HP) 10/15/2017 MERLE Primary SYLWIA [facility] CenterACHDOB: Insurance:[facility]: [place] cy Number: [id number] [facility] [id number] Lady of Peace Hospital, Date:1021-39-71Khqn [place] [address]Drm: Name:MANAGED CARE 35090Bxw: [phone] (HP) (HP) 10/01/2017 MERLE Primary SYLWIA [facility] CenterACHDOB: Insurance:[facility]: [place] cy Number: [id number] [facility] [id number] Lady of Peace Hospital, Date:0272-56-46Csob [place] [address]Lgl: Name:MANAGED CARE 46979Sop: [phone] (HP) (HP) 10/01/2017 MERLE Primary SYLWIA [facility] CenterACHDOB: Insurance:[facility]: [place] cy Number: [id number] [facility] [id number] Lady of Peace Hospital, Date:9450-79-23Scwb [place] [address]Yoq: Name:MANAGED CARE 43505Lrm: [phone] (HP) (HP) 09/17/2017 MERLE Primary SYLWIA [facility] HospitalD[facility]: Insurance:[facility]: [place] cy Number: [id number] [facility] [id number] Lady of Peace Hospital, Date:0683-35-52Lwwx [place] [address]Ulw: Name:MANAGED CARE 96823Zaf: [phone] (HP) (HP) 09/03/2017 MERLE Primary SYLWIA [facility]B: Insurance:[facility]: [place] cy Number: [id number] [facility] [id number] Lady of Peace Hospital, Date:1338-71-61Kpiu [place] [address]Rdz: Name:MANAGED CARE 49949Epy: [phone] (HP) (HP) 09/03/2017 MERLE Primary SYLWIA [facility] HospitalDOB: Insurance:[facility]: [place] cy Number: [id number] [facility] [id number] Lady of Peace Hospital, Date:8098-27-89Qoij [place] [address]Tvo: Name:MANAGED CARE 19686Lgd: [phone] (HP) (HP) 08/28/2017 MERLE Primary SYLWIA Ramon Humphrey SCHLABACHDOB: Insurance:AUCARE [facility]ILLELABACHDOB: [facility] [id number] Hospital [facility] Number: [place] Rep[address] [facility], [id number] [facility] [place] [address]Fup: Date:Plan Name: [id number] () 08/27/2017 MERLE Primary SYLWIA Ramon Humphrey SCHLABACHDOB: Insurance:[facility] SERVICESLABACHDOB: [facility] [id number] Number: PADMINI Repository [facility], [id number] [facility] [place] [address]Xoh: Date:Plan Name:A2 18460 () 08/20/2017 MERLE Primary SYLWIA [facility] SCHLABACHDOB: Insurance:[facility] HealthACHDOB: [place] cy Number: [id number] [facility] [id number] [facility], Date:8963-16-31Cbii [place] [address]Pws: Name:MANAGED CARE 78003Fxo: [phone] (HP) (HP) 08/06/2017 MERLE Primary SYLWIA [facility] SCHLABACHDOB: Insurance:[facility] HealthLABACHDOB: [place] cy Number: [id number] [facility] [id number] [facility], Date:7665-07-01Ahny [facility] [place] [address]Hkm: Name:MANAGED CARE 80561Yyn: [phone] (HP) (HP) 08/06/2017 MERLE Primary SYLWIA [facility] SCHLABACHDOB: Insurance:AULTCAREPoli SCHLABACHDOB: [place] cy Number: [id number] [facility] [id number] Lady of Peace Hospital, Date:6336-23-10Dllc [place] [address]Mru: Name:MANAGED CARE 16220Hpz: [phone] (HP) (HP) 08/05/2017 MERLE Primary [facility] SCHLABACHDOB: Insurance:[facility] CareB: [place] cy Number: [id number] [facility] [id number] Lady of Peace Hospital, Date:7194-59-41Xvve [facility] [place] [address]Hov: Name:MANAGED CARE 23933Dqh: [phone] (HP) (HP) 07/23/2017 MERLE Primary [facility] JacksonLABACHDOB: Insurance:[facility]: [place] cy Number: [id number] [facility] [id number] Center, Date:8445-96-67Cvel [facility], [place] [address]Dgn: Name:MANAGED CARE 85535Xri: [phone] (HP) (HP) 07/22/2017 MERLE Primary [facility] SCHLABACHDOB: Insurance:[facility]ascade [facility] CenterACHDOB: [place] cy Number: [id number] [facility] [id number] Lady of Peace Hospital, Date:9963-29-94Qmur [facility], [place] [address]Pis: Name:MANAGED CARE 50878Mbs: [phone] (HP) (HP) 07/19/2017 MERLE Primary SYLWIAHolzer Health SystemACHDOB: Insurance:[facility] CareB: [place] cy Number: [id number] [facility] [id number] [facility], Date:9434-60-00Lpwi [facility] [place] [address]Mgw: Name:MANAGED CARE 08939Ftu: [phone] () (HP) 07/18/2017 MERLE Primary SYLWIA [facility] SCHLABACHDOB: Insurance:[facility] CareB: [place] cy Number: [id number] [facility] [id number] [facility], Date:2128-19-55Rows [facility] [place] [address]Avj: Name:MANAGED CARE 34300Jqe: [phone] () (HP) 07/04/2017 MERLE Primary SYLWIA [facility] CenterACHDOB: Insurance:[facility]: [place] cy Number: [id number] [facility] [id number] Center, Date:4618-92-77Iwbx [facility] [place] [address]Woc: Name:MANAGED CARE 75611Jcz: [phone] (HP) (HP) 07/04/2017 MERLE Primary SYLWIA Ramon Humphrey [facility]ILLELABACHDOB: Insurance:[facility] HEALTHB: [facility] [id number] [facility] Number: [facility] Repository [facility], [id number] [place], [place] [address]Bhu: Date:Plan Name: [id number] ()
== END ==
PROVIDERS: Family Provider Internal Medicine; PCP Internal Medicine
DX: C25.9 Malignant neoplasm of pancreas, unspecified (principal); C79.9 Secondary malignant neoplasm of unspecified site
CPT/HCPCS: 96372; 96523; A4216; J2505

== ENCOUNTER → 2018-06-09 07:05 | Outpatient (CLI) | payer OTHER, SELFPAY ==
[2018-06-03 08:55] VITALS: BMI 58.6
--- NOTE | 2018-06-09 07:08 | CT_ITS ---
STUDY: CT CHEST WITH CONTRAST REASON FOR EXAM: Male, 62 years old. History of pancreatic carcinoma. This is a follow-up. RADIATION DOSAGE (If Supplied By Facility): CTDIvol = ( 27.28 ) mGy, DLP = ( 2330.6 ) mGycm TECHNIQUE: Transaxial imaging was performed following intravenous administration of Isovue 300 100 IV. Multiplanar coronal and sagittal images were reformatted. Individualized dose optimization techniques were used for this CT. COMPARISON: None. FINDINGS: A right-sided portacatheter is seen. The lungs are normal. There is no demonstrated pleural abnormality. There are calcifications of the coronary arteries. There are multiple small lymph nodes within the mediastinum, which are normal in size and morphology most compatible with reactive lymph hyperplasia. Normal hilar regions. Normal enhanced pulmonary arteries. There is atherosclerotic calcification of the aortic arch. There are multi-level degenerative changes of the thoracic spine. There are multiple hypodense nodules in the liver suggestive of metastatic disease. Small hiatal hernia. CT/Chest WITH Contrast IMPRESSION: No acute intrathoracic abnormality is seen. Multiple hypodense nodules seen throughout the liver suggestive of metastatic deposits. Electronically Signed: Rodriguez Del Toro MD at 8:53 EST , Service support ,
--- NOTE | 2018-06-09 07:08 | CT_ITS ---
STUDY: CT ABDOMEN AND PELVIS WITH CONTRAST REASON FOR EXAM: Male, 62 years old. Pancreatic carcinoma. Postchemotherapy reevaluation RADIATION DOSAGE (If Supplied By Facility): CTDIvol = ( 27.28 ) mGy, DLP = ( 2330.60 ) mGycm TECHNIQUE: Transaxial images were obtained from the dome of the diaphragm to the symphysis pubis with oral contrast. Isovue 300 100 IV/Oral was administered. Sagittal and coronal images were reconstructed. Individualized dose optimization techniques were used for this CT. COMPARISON: None. FINDINGS: The visualized lung bases are unremarkable. The visualized portions of the heart are within normal limits. In the posterior right lobe of the liver, there is an ill-defined metastatic lesion with heterogeneous enhancement measuring 9.7 x 5.2 cm. There is an additional subjacent metastatic lesion measuring 6.1 x 4.8 cm. An additional metastatic focus in the left lobe of the liver measuring 6.2 x 4.9 cm. Normal gallbladder and extrahepatic biliary system. Normal spleen. There is diffuse atrophy of the pancreas. No discrete pancreatic lesion noted on this exam. Normal bilateral adrenal glands. Normal right kidney. Normal left kidney. There is a small hiatal hernia. Normal small intestine. There are multiple colonic diverticula consistent with diverticulosis. The appendix is visualized and appears normal. There is diffuse atherosclerotic calcification of the abdominal aorta, without a demonstrated aneurysm. Normal inferior vena cava. Several small retroperitoneal and para-aortic lymph nodes are noted. Normal urinary bladder. There is enlargement of the prostate gland. Normal abdominal wall. There are diffuse degenerative changes of the visualized lumbar spine. CT/Abdomen/Pelvis WITH Contrast IMPRESSION: 1. Several metastatic lesions in the liver as detailed above 2. Diffuse pancreatic atrophy is noted however, no discretely evident pancreatic mass is 3. Several small retroperitoneal and periaortic lymph nodes, nonspecific Electronically Signed: Aleksadnar Hernández DO at 8:26 EST Tel , Service support ,
== END ==
PROVIDERS: Family Provider Internal Medicine; PCP Internal Medicine; Referring Provider Internal Medicine Medical Oncology; Visit Provider Internal Medicine Medical Oncology
DX: C25.2 Malignant neoplasm of tail of pancreas (principal); C78.7 Secondary malignant neoplasm of liver and intrahepatic bile duct
CPT/HCPCS: 71260; 74177; Q9967; A4216